=== PATIENT | female | born 1990 | race Caucasian/White ===

== ENCOUNTER 2021-05-01 17:21 | Inpatient (IN) | payer OTHER, SELFPAY ==
[2021-05-01 18:00] VITALS: BP 121/72; PULSE 68; RESP 18; TEMP 36.7; O2SAT 98
[2021-05-01 19:23] VITALS: BMI 36.1
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
[2021-05-01] MEDS: OLANZapine 7.5 MG TABLET 15 MG PO (20:01)
[2021-05-01] MEDS: LORazepam 1 MG TABLET PO (20:02)
[2021-05-02] MEDS: Levothyroxine Sodium 75 MCG TABLET PO (06:45)
[2021-05-02 07:00] VITALS: BMI 36.1
[2021-05-02 09:04] VITALS: BP 112/75; PULSE 80; RESP 16; TEMP 36.2; O2SAT 100
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
[2021-05-02 14:16] LABS: Estimated Average Glucose 85 mg/dL; Hemoglobin A1c % 4.6 %
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
[2021-05-02 14:33] LABS: Cholesterol 171 mg/dL; HDL Cholesterol 44 mg/dL; LDL Cholesterol Calculated 91 mg/dl; Triglycerides 182 mg/dL
[2021-05-02 14:38] LABS: Valproate 6.4 mcg/mL (50.0-100.0)
[2021-05-02 14:53] LABS: Thyroid Stimulating Hormone 14.46 uIU/mL (0.32-4.0)
[2021-05-02 15:05] LABS: Folate 15.5 ng/mL (> or = 4.0); Vitamin B12 584 pg/mL (200-900)
[2021-05-02] MEDS: OLANZapine 5 MG TABLET PO ×2 (15:31→17:00)
[2021-05-02] MEDS: LORazepam 1 MG TABLET PO ×2 (15:31→17:00)
[2021-05-02] MEDS: Divalproex Sodium ER 250 MG TAB.ER.24H 750 MG PO (15:31)
[2021-05-02] MEDS: Albuterol Sulfate 90 MCG 8 GM INHALER 2 PUFF INHALE (15:33)
--- NOTE | 2021-05-03 | ECG_ITS ---
Test Reason : CP Blood Pressure : / mmHG Vent. Rate : 078 BPM Atrial Rate : 078 BPM P-R Int : 188 ms QRS Dur : 072 ms QT Int : 390 ms P-R-T Axes : 089 059 044 degrees QTc Int : 444 ms Normal sinus rhythm Nonspecific T wave abnormality Abnormal ECG No previous ECGs available Referred By: Maxwell Spencer Electronically Signed By:SCOTTIE SCOTT
[2021-05-03 06:00] VITALS: BP 117/65; PULSE 88; RESP 18; TEMP 35.6; O2SAT 97
[2021-05-03] MEDS: OLANZapine 5 MG TABLET PO ×2 (09:17→15:39)
[2021-05-03] MEDS: Levothyroxine Sodium 88 MCG TABLET PO (09:17)
[2021-05-03] MEDS: Divalproex Sodium ER 250 MG TAB.ER.24H 750 MG PO ×2 (09:17→20:22)
--- NOTE | 2021-05-03 12:53 | HO.PSYCHPN ---
Subjective Subjective Date of Service: 05/03/21 Reason For Visit: Psychosis Interim History: pt found lying in bed, awake. states she is ready to go home and has no complaints or requests. 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 not attending any groups. asked for PRNs yesterday afternoon and then a couple of hours later had an episode of yelling in relation to paranoid delusions. she received more PRNs after that and then calmed and slept through the night. TSH noted to be very elevated - known hypothyroidism on synthroid. Mental Status Exam Mental Status Exam Narrative: appropriately dressed and groomed. moderately cooperative. no PMA/PMR. speech WNL, thoughts linear and logical. affect constricted. no SI/HI/AVH expressed. Diagnostics Vital Signs (24Hr): Vital Signs - 24 hr 05/03/21 06:00 Temperature 96.0 F L Pulse Rate 88 Respiratory Rate 18 Blood Pressure 117/65 Pulse Oximetry 97 Body Mass Index 36.1 Labs Labs: Laboratory Results - last 48 hr 05/02/21 05/02/21 05/02/21 13:45 13:45 13:45 Estimat Average Glucose 85 Hemoglobin A1c % 4.6 Triglycerides 182 Cholesterol 171 LDL Cholesterol, Calc 91 HDL Cholesterol 44 Vitamin B12 584 Folate 15.5 TSH 14.46 H Valproic Acid 6.4 L Medications Medications Current Medications Generic Name Dose Route Start Last Admin Trade Name Freq PRN Reason Stop Dose Admin Acetaminophen 650 mg 05/01/21 17:48 Acetaminophen 325 Mg Tablet PO Q6H PRN Headache/Pain Mild Scale (1-3) Al Hydroxide/Mg Hydroxide 30 ml 05/01/21 17:48 Magnesium Hydrox/Alum Hydrox 30 Ml Oral.Susp PO Q6H PRN Heartburn/Nausea Albuterol Sulfate 2 puff 05/01/21 20:14 05/02/21 15:33 Albuterol Sulfate 90 Mcg 8 Gm Inhaler INHALE 2 puff RQ4H PRN Administration Shortness of Breath Divalproex Sodium 750 mg 05/02/21 14:30 05/03/21 09:17 Divalproex Sodium Er 250 Mg Tab.Er.24h PO 750 mg BID YOSELIN Administration Famotidine 20 mg 05/01/21 20:15 Famotidine 20 Mg Tablet PO BID PRN GERD Sx Hydroxyzine HCl 25 mg 05/01/21 17:48 Hydroxyzine Hcl 25 Mg Tablet PO BEDTIME PRN Anxiety Levothyroxine Sodium 88 mcg 05/03/21 06:00 05/03/21 09:17 Levothyroxine Sodium 88 Mcg Tablet PO 88 mcg DAILY@0600 YOSELIN Administration Lorazepam 1 mg 05/01/21 18:11 05/02/21 15:31 Lorazepam 1 Mg Tablet PO 1 mg Q6H PRN Administration psychosis, anxiety,agitation Lorazepam 1 mg 05/02/21 21:00 05/03/21 06:13 Lorazepam 1 Mg Tablet PO Not Given BEDTIME YOSELIN Magnesium Hydroxide 30 ml 05/01/21 17:48 Milk Of Magnesia 30 Ml Oral.Susp PO DAILY PRN Constipation Nicotine Polacrilex 2 mg 05/01/21 20:16 Nicotine Polacrilex 2 Mg Gum BUCCAL Q2H PRN Nicotine Cravings Olanzapine 15 mg 05/01/21 21:00 05/03/21 06:13 Olanzapine 7.5 Mg Tablet PO Not Given BEDTIME YOSELIN Olanzapine 5 mg 05/01/21 18:10 05/02/21 15:31 Olanzapine 5 Mg Tablet PO 5 mg BID PRN Administration psychosis Olanzapine 5 mg 05/03/21 09:00 05/03/21 09:17 Olanzapine 5 Mg Tablet PO 5 mg DAILY YOSELIN Administration Prazosin HCl 2 mg 05/02/21 21:00 05/03/21 06:13 Prazosin Hcl 1 Mg Capsule PO Not Given BEDTIME YOSELIN Protocol Trazodone HCl 50 mg 05/01/21 17:48 Trazodone Hcl 50 Mg Tablet PO BEDTIME PRN Insomnia Trazodone HCl 50 mg 05/02/21 21:00 05/03/21 06:13 Trazodone Hcl 50 Mg Tablet PO Not Given BEDTIME YOSELIN Allergies Allergies Allergy/AdvReac Type Severity Reaction Status Date / Time No Known Allergies Allergy Unverified 05/24/20 16:13 Assessment & Plan Assessment & Plan (1) Psychotic disorder: Status: Acute Code(s): F29 - Unspecified psychosis not due to a substance or known physiological condition Assessment and Plan: restarted home regimen. Assessment and Plan: 31/F with asthma, hypothyroidism and Psychosis here with decompensated Psychosis with disorganized thoughts. Plan: Medical issues of hypothyroidism and Asthma are stable. Continue Psych care for Psychosis. Greater than 50% of the session was spent on counseling and/or coordination of care Reason for contiued inpatient stay Substantial Risk for: inability to function
[2021-05-03] MEDS: LORazepam 1 MG TABLET PO ×2 (15:39→20:23)
[2021-05-03] MEDS: Acetaminophen 325 MG TABLET 650 MG PO (15:42)
[2021-05-03] MEDS: Albuterol Sulfate 90 MCG 8 GM INHALER 2 PUFF INHALE (15:42)
[2021-05-03 18:00] VITALS: BP 127/69; PULSE 82; RESP 16; TEMP 36.4; O2SAT 99
[2021-05-03 20:22] VITALS: BP 127/69; PULSE 82
[2021-05-03] MEDS: Prazosin HCL 1 MG CAPSULE 2 MG PO (20:22)
[2021-05-03] MEDS: OLANZapine 7.5 MG TABLET 15 MG PO (20:22)
[2021-05-03] MEDS: traZODone HCL 50 MG TABLET PO (20:23)
[2021-05-04] MEDS: Acetaminophen 325 MG TABLET 650 MG PO ×2 (02:28→10:20)
[2021-05-04] MEDS: traZODone HCL 50 MG TABLET PO ×2 (02:28→19:59)
[2021-05-04] MEDS: Albuterol Sulfate 90 MCG 8 GM INHALER 2 PUFF INHALE ×3 (02:30→19:08)
[2021-05-04] MEDS: Levothyroxine Sodium 88 MCG TABLET PO (07:09)
[2021-05-04] MEDS: Divalproex Sodium ER 250 MG TAB.ER.24H 750 MG PO ×2 (08:45→19:59)
[2021-05-04] MEDS: OLANZapine 5 MG TABLET PO ×2 (08:46→19:10)
[2021-05-04 10:27] VITALS: BP 102/58; PULSE 85; TEMP 36.2
--- NOTE | 2021-05-04 16:03 | HO.PSYCHPN ---
Subjective Subjective Date of Service: 05/04/21 Reason For Visit: Psychosis Subjective Notes: Conditional Voluntary and 3 Day Interim History: Patient withdrawn depressed hopeless helpless minimal engagement Medication Compliance: Intermittent Attending Groups: No Mental Status Exam Mental Status Exam Narrative: Patient lying in bed minimal engagement. Psychomotor retardation rambling paranoid concerns disorganized thought Patient Appearance: Fatigued Patient Orientation: Person and Place Level of Consciousness: Awake Mood Description: Suspicious, Blunted and Apprehensive Affect Description: Suspicious and Apprehensive Delusions: Paranoid Ideation Thought Content: positive for [place], positive for Perseveration, negative for Suicidal Ideation or positive for Homicidal Ideation Judgement: Poor Diagnostics Vital Signs (24Hr): Vital Signs - 24 hr 05/03/21 18:00 05/03/21 20:22 05/04/21 10:27 Temperature 97.5 F 97.2 F Pulse Rate 82 82 85 Respiratory Rate 16 Blood Pressure 127/69 127/69 102/58 L Pulse Oximetry 99 Body Mass Index 36.1 Medications Medications Current Medications Generic Name Dose Route Start Last Admin Trade Name Freq PRN Reason Stop Dose Admin Acetaminophen 650 mg 05/01/21 17:48 05/04/21 10:20 Acetaminophen 325 Mg Tablet PO 650 mg Q6H PRN Administration Headache/Pain Mild Scale (1-3) Al Hydroxide/Mg Hydroxide 30 ml 05/01/21 17:48 Magnesium Hydrox/Alum Hydrox 30 Ml Oral.Susp PO Q6H PRN Heartburn/Nausea Albuterol Sulfate 2 puff 05/01/21 20:14 05/04/21 10:20 Albuterol Sulfate 90 Mcg 8 Gm Inhaler INHALE 2 puff RQ4H PRN Administration Shortness of Breath Divalproex Sodium 750 mg 05/02/21 14:30 05/04/21 08:45 Divalproex Sodium Er 250 Mg Tab.Er.24h PO 750 mg BID YOSELIN Administration Famotidine 20 mg 05/01/21 20:15 Famotidine 20 Mg Tablet PO BID PRN GERD Sx Hydroxyzine HCl 25 mg 05/01/21 17:48 Hydroxyzine Hcl 25 Mg Tablet PO BEDTIME PRN Anxiety Levothyroxine Sodium 88 mcg 05/03/21 06:00 05/04/21 07:09 Levothyroxine Sodium 88 Mcg Tablet PO 88 mcg DAILY@0600 YOSELIN Administration Lorazepam 1 mg 05/01/21 18:11 05/02/21 15:31 Lorazepam 1 Mg Tablet PO 1 mg Q6H PRN Administration psychosis, anxiety,agitation Lorazepam 1 mg 05/02/21 21:00 05/03/21 20:23 Lorazepam 1 Mg Tablet PO 1 mg BEDTIME YOSELIN Administration Magnesium Hydroxide 30 ml 05/01/21 17:48 Milk Of Magnesia 30 Ml Oral.Susp PO DAILY PRN Constipation Nicotine Polacrilex 2 mg 05/01/21 20:16 Nicotine Polacrilex 2 Mg Gum BUCCAL Q2H PRN Nicotine Cravings Olanzapine 15 mg 05/01/21 21:00 05/03/21 20:22 Olanzapine 7.5 Mg Tablet PO 15 mg BEDTIME YOSELIN Administration Olanzapine 5 mg 05/01/21 18:10 05/02/21 15:31 Olanzapine 5 Mg Tablet PO 5 mg BID PRN Administration psychosis Olanzapine 5 mg 05/03/21 09:00 05/04/21 08:46 Olanzapine 5 Mg Tablet PO 5 mg DAILY YOSELIN Administration Prazosin HCl 2 mg 05/02/21 21:00 05/03/21 20:22 Prazosin Hcl 1 Mg Capsule PO 2 mg BEDTIME YOSELIN Administration Protocol Trazodone HCl 50 mg 05/01/21 17:48 05/04/21 02:28 Trazodone Hcl 50 Mg Tablet PO 50 mg BEDTIME PRN Administration Insomnia Trazodone HCl 50 mg 05/02/21 21:00 05/03/21 20:23 Trazodone Hcl 50 Mg Tablet PO 50 mg BEDTIME YOSELIN Administration Allergies Allergies Allergy/AdvReac Type Severity Reaction Status Date / Time No Known Allergies Allergy Unverified 05/24/20 16:13 Assessment & Plan Assessment & Plan (1) Psychotic disorder: Status: Acute Code(s): F29 - Unspecified psychosis not due to a substance or known physiological condition Assessment and Plan: restarted home regimen. Continue Assessment and Plan: with asthma, hypothyroidism and Psychosis here with decompensated Psychosis with disorganized thoughts. Plan: Medical issues of hypothyroidism and Asthma are stable. Continue Psych care for Psychosis. Greater than 50% of the session was spent on counseling and/or coordination of care Reason for contiued inpatient stay Substantial Risk for: inability to function and rapid decompensation
[2021-05-04 18:26] LABS: Glucose Urine UA NEG (NEG); Leukocyte Esterase Urine 1+ (NEG); Nitrite Urine NEG (NEG); Urine Blood TRACE (NEG); Urine Ketones 5 MG/DL (NEG); Urine Protein NEG (NEG-TRACE)
[2021-05-04 18:39] LABS: Appearance Urine HAZY; Color Urine YELLOW
[2021-05-04 18:40] LABS: Bacteria Urine 1+ /LPF; RBC Urine 0-2 /HPF (0); Squamous Epithelial Cell Urine 1+ /LPF; WBC Urine 0-2 /HPF (0-4)
[2021-05-04] MEDS: LORazepam 1 MG TABLET PO ×2 (19:10→19:59)
[2021-05-04 19:58] VITALS: BP 115/72; PULSE 88
[2021-05-04] MEDS: Prazosin HCL 1 MG CAPSULE 2 MG PO (19:58)
[2021-05-04] MEDS: OLANZapine 7.5 MG TABLET 15 MG PO (19:59)
[2021-05-04 21:22] VITALS: BP 124/78; PULSE 82; RESP 18; TEMP 36.3; O2SAT 100
--- NOTE | 2021-05-05 00:11 | PC.NURSE ---
ua results reviewed with hospitalist
--- NOTE | 2021-05-05 02:05 | PC.NURSE ---
NOT GIVEN ANTIBIOTIC PT IS DIFFICULT TO AROUSE SHE HAD REQUESTED PRN MEDICATION WHEN FEELING OVERWHELMED THEN ACCEPTED HS MEDICATIONS. SLEEPING SOUNDLY.
[2021-05-05] MEDS: Levothyroxine Sodium 88 MCG TABLET PO (05:22)
[2021-05-05] MEDS: OLANZapine 5 MG TABLET PO ×2 (08:54→13:38)
[2021-05-05] MEDS: Divalproex Sodium ER 250 MG TAB.ER.24H 750 MG PO ×2 (08:54→20:32)
[2021-05-05] MEDS: LORazepam 1 MG TABLET PO ×2 (13:38→20:32)
[2021-05-05 20:32] VITALS: BP 109/59; PULSE 78
[2021-05-05] MEDS: Prazosin HCL 1 MG CAPSULE 2 MG PO (20:32)
[2021-05-05] MEDS: traZODone HCL 50 MG TABLET PO (20:32)
[2021-05-05] MEDS: OLANZapine 7.5 MG TABLET 15 MG PO (20:32)
[2021-05-05 20:37] VITALS: TEMP 36.7
--- NOTE | 2021-05-05 23:27 | P.PNPSI_ITS ---
Subjective Subjective Date of Service: 05/05/21 Reason For Visit: Psychosis Subjective Notes: Conditional Voluntary and 3 Day Interim History: pt withdrawn in bed isolative bizarre paranoid preoccupations Medication Compliance: Intermittent Mental Status Exam Mental Status Exam Patient Appearance: Unkempt Patient Orientation: Person and Place Level of Consciousness: Lethargic Mood Description: Anxious, Labile and Apprehensive Affect Description: Withdrawn Ability to Follow Directions: Poor Hallucinations: Auditory Delusions: Paranoid Ideation Thought Process: Rumination and Slowed Thinking Thought Content: negative for Suicidal Ideation Depressive Symptoms: Increased Anxiety, Loss of Int. in Activity, Loss of Energy and Difficulty Concentrating Judgement: Poor Diagnostics Vital Signs (24Hr): Vital Signs - 24 hr 05/05/21 20:32 05/05/21 20:37 Temperature 98.1 F Pulse Rate 78 Blood Pressure 109/59 L Body Mass Index 36.1 Labs Labs: Laboratory Results - last 48 hr 05/04/21 18:08 Urine Color YELLOW Urine Appearance HAZY Urine pH 6.0 Ur Specific [place] 1.020 Urine Protein NEG Urine Glucose (UA) NEG Urine Ketones 5 Urine Blood TRACE Urine Nitrite NEG Ur Leukocyte Esterase 1+ H Urine RBC 0-2 Urine WBC 0-2 Ur Squamous Epith Cells 1+ Urine Bacteria 1+ Medications Medications Current Medications Generic Name Dose Route Start Last Admin Trade Name Freq PRN Reason Stop Dose Admin Acetaminophen 650 mg 05/01/21 17:48 05/04/21 10:20 Acetaminophen 325 Mg Tablet PO 650 mg Q6H PRN Administration Headache/Pain Mild Scale (1-3) Al Hydroxide/Mg Hydroxide 30 ml 05/01/21 17:48 Magnesium Hydrox/Alum Hydrox 30 Ml Oral.Susp PO Q6H PRN Heartburn/Nausea Albuterol Sulfate 2 puff 05/01/21 20:14 05/04/21 19:08 Albuterol Sulfate 90 Mcg 8 Gm Inhaler INHALE 2 puff RQ4H PRN Administration Shortness of Breath Divalproex Sodium 750 mg 05/02/21 14:30 05/05/21 20:32 Divalproex Sodium Er 250 Mg Tab.Er.24h PO 750 mg BID YOSELIN Administration Famotidine 20 mg 05/01/21 20:15 Famotidine 20 Mg Tablet PO BID PRN GERD Sx Hydroxyzine HCl 25 mg 05/01/21 17:48 Hydroxyzine Hcl 25 Mg Tablet PO BEDTIME PRN Anxiety Levothyroxine Sodium 88 mcg 05/03/21 06:00 05/05/21 05:22 Levothyroxine Sodium 88 Mcg Tablet PO 88 mcg DAILY@0600 YOSELIN Administration Lorazepam 1 mg 05/01/21 18:11 05/05/21 13:38 Lorazepam 1 Mg Tablet PO 1 mg Q6H PRN Administration psychosis, anxiety,agitation Lorazepam 1 mg 05/02/21 21:00 05/05/21 20:32 Lorazepam 1 Mg Tablet PO 1 mg BEDTIME YOSELIN Administration Magnesium Hydroxide 30 ml 05/01/21 17:48 Milk Of Magnesia 30 Ml Oral.Susp PO DAILY PRN Constipation Nicotine Polacrilex 2 mg 05/01/21 20:16 Nicotine Polacrilex 2 Mg Gum BUCCAL Q2H PRN Nicotine Cravings Olanzapine 15 mg 05/01/21 21:00 05/05/21 20:32 Olanzapine 7.5 Mg Tablet PO 15 mg BEDTIME YOSELIN Administration Olanzapine 5 mg 05/01/21 18:10 05/05/21 13:38 Olanzapine 5 Mg Tablet PO 5 mg BID PRN Administration psychosis Olanzapine 5 mg 05/03/21 09:00 05/05/21 08:54 Olanzapine 5 Mg Tablet PO 5 mg DAILY YOSELIN Administration Prazosin HCl 2 mg 05/02/21 21:00 05/05/21 20:32 Prazosin Hcl 1 Mg Capsule PO 2 mg BEDTIME YOSELIN Administration Protocol Trazodone HCl 50 mg 05/01/21 17:48 05/04/21 02:28 Trazodone Hcl 50 Mg Tablet PO 50 mg BEDTIME PRN Administration Insomnia Trazodone HCl 50 mg 05/02/21 21:00 05/05/21 20:32 Trazodone Hcl 50 Mg Tablet PO 50 mg BEDTIME YOSELIN Administration Trimethoprim/Sulfamethoxazole 1 tab 05/05/21 00:15 05/05/21 13:38 Sulfamethox/Trimeth 800/160 1 Tab Tablet PO 1 tab Q12H YOSELIN Administration Allergies Allergies Allergy/AdvReac Type Severity Reaction Status Date / Time No Known Allergies Allergy Unverified 05/24/20 16:13 Assessment & Plan Assessment & Plan (1) Psychotic disorder: Status: Acute Code(s): F29 - Unspecified psychosis not due to a substance or known physiological condition Assessment and Plan: 31/F with asthma, hypothyroidism and Psychosis here with decompensated Psychosis with disorganized thoughts. Plan: ck ua encourage tx antipsychotic Greater than 50% of the session was spent on counseling and/or coordination of care Reason for contiued inpatient stay Substantial Risk for: inability to function and rapid decompensation
[2021-05-06] MEDS: Divalproex Sodium ER 250 MG TAB.ER.24H 750 MG PO ×2 (08:08→21:03)
[2021-05-06] MEDS: Levothyroxine Sodium 88 MCG TABLET PO (08:08)
[2021-05-06] MEDS: OLANZapine 5 MG TABLET PO (08:08)
[2021-05-06] MEDS: Albuterol Sulfate 90 MCG 8 GM INHALER 2 PUFF INHALE (08:09)
[2021-05-06 08:19] VITALS: BP 114/55; PULSE 106; TEMP 36.4; O2SAT 97
--- NOTE | 2021-05-06 14:44 | HO.PSYCHPN ---
Subjective Subjective Date of Service: 05/06/21 Reason For Visit: Psychosis Interim History: pt reports she is doing well. states she has been sleeping a lot due to the medication, but she is feeling up and better now. recites a list of plans for after discharge tomorrow. anticipating her spring encaser will be coming to pick her up tomorrow. per staff, 3-day matures tomorrow. eating, napping. anxious, depressed, labile. brief verbal escalation with staff over the weekend. takng medications but c/o seeing demons. sleeping well. Mental Status Exam Mental Status Exam Narrative: appropriately dressed and groomed. cooperative. no PMA/PMR. speech incr in rate, amount. speech decr in latency. thoughts disorganized, tangential. affect constricted. mood I fell happy, strong, great, recoverd. no SI/HI/AVH. Diagnostics Vital Signs (24Hr): Vital Signs - 24 hr 05/05/21 20:32 05/05/21 20:37 05/06/21 08:19 Temperature 98.1 F 97.6 F Pulse Rate 78 106 H Blood Pressure 109/59 L 114/55 L Pulse Oximetry 97 Body Mass Index 36.1 Labs Labs: Laboratory Results - last 48 hr 05/04/21 18:08 Urine Color YELLOW Urine Appearance HAZY Urine pH 6.0 Ur Specific [place] 1.020 Urine Protein NEG Urine Glucose (UA) NEG Urine Ketones 5 Urine Blood TRACE Urine Nitrite NEG Ur Leukocyte Esterase 1+ H Urine RBC 0-2 Urine WBC 0-2 Ur Squamous Epith Cells 1+ Urine Bacteria 1+ Medications Medications Current Medications Generic Name Dose Route Start Last Admin Trade Name Luisa PRN Reason Stop Dose Admin Acetaminophen 650 mg 05/01/21 17:48 05/04/21 10:20 Acetaminophen 325 Mg Tablet PO 650 mg Q6H PRN Administration Headache/Pain Mild Scale (1-3) Al Hydroxide/Mg Hydroxide 30 ml 05/01/21 17:48 Magnesium Hydrox/Alum Hydrox 30 Ml Oral.Susp PO Q6H PRN Heartburn/Nausea Albuterol Sulfate 2 puff 05/01/21 20:14 05/06/21 08:09 Albuterol Sulfate 90 Mcg 8 Gm Inhaler INHALE 2 puff RQ4H PRN Administration Shortness of Breath Divalproex Sodium 750 mg 05/02/21 14:30 05/06/21 08:08 Divalproex Sodium Er 250 Mg Tab.Er.24h PO 750 mg BID YOSELIN Administration Famotidine 20 mg 05/01/21 20:15 Famotidine 20 Mg Tablet PO BID PRN GERD Sx Hydroxyzine HCl 25 mg 05/01/21 17:48 Hydroxyzine Hcl 25 Mg Tablet PO BEDTIME PRN Anxiety Levothyroxine Sodium 88 mcg 05/03/21 06:00 05/06/21 08:08 Levothyroxine Sodium 88 Mcg Tablet PO 88 mcg DAILY@0600 YOSELIN Administration Lorazepam 1 mg 05/01/21 18:11 05/05/21 13:38 Lorazepam 1 Mg Tablet PO 1 mg Q6H PRN Administration psychosis, anxiety,agitation Lorazepam 1 mg 05/02/21 21:00 05/05/21 20:32 Lorazepam 1 Mg Tablet PO 1 mg BEDTIME YOSELIN Administration Magnesium Hydroxide 30 ml 05/01/21 17:48 Milk Of Magnesia 30 Ml Oral.Susp PO DAILY PRN Constipation Nicotine Polacrilex 2 mg 05/01/21 20:16 Nicotine Polacrilex 2 Mg Gum BUCCAL Q2H PRN Nicotine Cravings Olanzapine 15 mg 05/01/21 21:00 05/05/21 20:32 Olanzapine 7.5 Mg Tablet PO 15 mg BEDTIME YOSELIN Administration Olanzapine 5 mg 05/01/21 18:10 05/05/21 13:38 Olanzapine 5 Mg Tablet PO 5 mg BID PRN Administration psychosis Olanzapine 5 mg 05/03/21 09:00 05/06/21 08:08 Olanzapine 5 Mg Tablet PO 5 mg DAILY YOSELIN Administration Prazosin HCl 2 mg 05/02/21 21:00 05/05/21 20:32 Prazosin Hcl 1 Mg Capsule PO 2 mg BEDTIME YOSELIN Administration Protocol Trazodone HCl 50 mg 05/01/21 17:48 05/04/21 02:28 Trazodone Hcl 50 Mg Tablet PO 50 mg BEDTIME PRN Administration Insomnia Trazodone HCl 50 mg 05/02/21 21:00 05/05/21 20:32 Trazodone Hcl 50 Mg Tablet PO 50 mg BEDTIME YOSELIN Administration Trimethoprim/Sulfamethoxazole 1 tab 05/06/21 08:00 05/06/21 08:08 Sulfamethox/Trimeth 800/160 1 Tab Tablet PO 1 tab Q12H YOSELIN Administration Allergies Allergies Allergy/AdvReac Type Severity Reaction Status Date / Time No Known Allergies Allergy Unverified 05/24/20 16:13 Assessment & Plan Assessment & Plan (1) Psychotic disorder: Status: Acute Code(s): F29 - Unspecified psychosis not due to a substance or known physiological condition Assessment and Plan: restarted home regimen. Assessment and Plan: with asthma, hypothyroidism and Psychosis here with decompensated Psychosis with disorganized thoughts. Plan: Medical issues of hypothyroidism and Asthma are stable. Continue Psych care for Psychosis. Greater than 50% of the session was spent on counseling and/or coordination of care Reason for contiued inpatient stay Substantial Risk for: rapid decompensation
[2021-05-06 21:03] VITALS: BP 97/56; PULSE 87
[2021-05-06] MEDS: traZODone HCL 50 MG TABLET PO (21:03)
[2021-05-06] MEDS: LORazepam 1 MG TABLET PO (21:03)
[2021-05-06] MEDS: OLANZapine 7.5 MG TABLET 15 MG PO (21:03)
[2021-05-06] MEDS: Prazosin HCL 1 MG CAPSULE 2 MG PO (21:03)
[2021-05-06 21:09] VITALS: TEMP 36.4; O2SAT 98
--- NOTE | 2021-05-06 21:53 | P.EN_ITS ---
Event Note Date of Service: 05/07/21 Event Note: Patient complaining of s/s of yeast infection, recently started ba ctrim for UTI. Will administer fluconazole 150 mg single dose. Reviewed risks/ benefits. Reviewed recent labs including U/A and urine culture.
[2021-05-06] MEDS: Fluconazole 150 MG TABLET PO (22:44)
[2021-05-07 10:54] VITALS: BP 122/60; PULSE 114; RESP 16; TEMP 36.7; O2SAT 97
[2021-05-07] MEDS: Levothyroxine Sodium 88 MCG TABLET PO (10:56)
[2021-05-07] MEDS: Divalproex Sodium ER 250 MG TAB.ER.24H 750 MG PO (10:57)
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
--- NOTE | 2021-05-07 12:51 | PC.NURSE ---
PT aware and ready for discharge. Pt mood is bright, pt is future focused. PT denies SI/HI. PT aware of follow up appointments. Discharge instructions discussed, all questions answered. Belongings returned. Pt ambulated off unit with steady gait with her [facility] worker.
== END 2021-05-07 12:52 | disposition home or self-care (01) | DRG 751 ==
PROVIDERS: Clinical Nurse Specialist Psychiatric/Mental Health, Adult; Psychiatry & Neurology Psychiatry; Admitting Provider Psychiatry & Neurology Psychiatry; Visit Provider Psychiatry & Neurology Psychiatry
DX: F29 Unspecified psychosis not due to a substance or known physiological condition (principal); E03.9 Hypothyroidism, unspecified; J45.909 Unspecified asthma, uncomplicated; Z87.891 Personal history of nicotine dependence; Z79.890 Hormone replacement therapy; Z79.899 Other long term (current) drug therapy
CPT/HCPCS: 36415; 80061; 80164; 81001; 82607; 82746; 83036; 84443; 87086; 93005

== ENCOUNTER 2024-04-12 20:50 | Inpatient (IN) | payer OTHER, SELFPAY ==
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
[2024-04-12 21:40] VITALS: BMI 26.3
[2024-04-12 21:43] VITALS: BP 95/60; PULSE 87; RESP 18; TEMP 36.7; O2SAT 98
[2024-04-12] MEDS: traZODone HCL 50 MG TABLET PO (21:47)
[2024-04-12] MEDS: hydrOXYzine HCL 25 MG TABLET PO (21:47)
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
[2024-04-13] MEDS: hydrOXYzine HCL 25 MG TABLET PO ×2 (04:31→15:57)
[2024-04-13 08:15] VITALS: BP 110/49; PULSE 74; RESP 16; TEMP 36.9; O2SAT 97
[2024-04-13] MEDS: Divalproex Sodium ER 250 MG TAB.ER.24H 750 MG PO ×2 (09:02→20:21)
[2024-04-13 10:05] LABS: Estimated Average Glucose 94 mg/dL; Hemoglobin A1c % 4.9 % (<6.0)
--- NOTE | 2024-04-13 10:45 | HO.PM.IMCN ---
History of Present Illness Data of Consult Service Date: 04/13/24 Primary Care Provider: MD AYM Mathews Reason for consult: Medical management This is a 34-year-old female with history of hypothyroidism, mild intermittent asthma, mood disorder who is admitted to inpatient psychiatry for decompensated psychiatric illness. She has no complaints at the time of my evaluation. No chest pain, shortness of breath or any other complaints. Review of Systems Cardiovascular: Cardiovascular: Reports no additional cardiovascular complaints Respiratory: Respiratory: Reports no additional respiratory complaints Gastrointestinal: Gastrointestinal: Reports no additional gastrointestinal complaints Genitourinary: Genitourinary: Reports no additional female genitourinary complaints [facility] Medical History Hypothyroidism Asthma Pertinent family history: No family history of early CAD Social History Household Members: None Household Members Other:: lives alone Housing: Apartment Housing Other:: Moving on 05/10 Do you presently have visiting nurse or other home services: No Patient Tobacco Use Status: Former Tobacco user Tobacco use type: Cigarette Cigarette Packs Per Day: 0.25 Cigarettes Per Day: 5.0 Years Smoked: 12 e-Cigarette/Vaping Use: Never Used Second Hand Smoke Exposure: No Use of substances other than those prescribed or required for medical reasons: No Last Used Substance: Just Prior to Admission Last Used Substance Other:: DENIES BUT NOTED POSITIVE FOR COCAINE AND FENTANYL Have you been hit, kicked, punched, or otherwise hurt by someone within the past year? If so, by whom?: No Do you feel safe in your current relationship?: No Is there a partner from a previous relationship who is making you feel unsafe now?: No Are you made to feel afraid or neglected: No Advance Directives: No Advance Directives Information Provided: No Recently lost weight without trying: No Nutrition Risks: No Nutritional Risk Patient : No service: No Sexual orientation: Straight/Heterosexual Meds Allergies Allergy/AdvReac Type Severity Reaction Status Date / Time risperidone Allergy Unknown Verified 04/12/24 22:01 Active Medications: Current Medications Acetaminophen (Acetaminophen 325 Mg Tablet) 650 mg PO Q6H PRN PRN Reason: Headache/Pain Mild Scale (1-3) Al Hydroxide/Mg Hydroxide (Magnesium Hydrox/Alum Hydrox 30 Ml Oral.Susp) 30 ml PO Q6H PRN PRN Reason: Heartburn/Nausea Divalproex Sodium (Divalproex Sodium Er 250 Mg Tab.Er.24h) 750 mg PO BID YOSELIN Last Admin: 04/13/24 09:02 Dose: 750 mg Hydroxyzine HCl (Hydroxyzine Hcl 25 Mg Tablet) 25 mg PO Q6H PRN PRN Reason: Anxiety Last Admin: 04/13/24 04:31 Dose: 25 mg Magnesium Hydroxide (Milk Of Magnesia 30 Ml Oral.Susp) 30 ml PO DAILY PRN PRN Reason: Constipation Melatonin (Melatonin 3 Mg Tablet) 3 mg PO BEDTIME PRN PRN Reason: Insomnia Nicotine (Nicotine 21 Mg Patch.Td24) 21 mg TRANSDERMA DAILY PRN PRN Reason: nicotine cravings Nicotine Polacrilex (Nicotine Polacrilex 2 Mg Gum) 4 mg BUCCAL Q2H PRN PRN Reason: Nicotine Cravings Olanzapine (Olanzapine 10 Mg Tablet) 20 mg PO BEDTIME YOSELIN Prazosin HCl (Prazosin Hcl 1 Mg Capsule) 2 mg PO BEDTIME YOSELIN; Protocol Trazodone HCl (Trazodone Hcl 50 Mg Tablet) 50 mg PO BEDTIME MRX1 PRN PRN Reason: Insomnia Last Admin: 04/12/24 21:47 Dose: 50 mg Home Medications ?Medication ?Instructions ?Recorded ?Confirmed ?Last Taken ?Type hydroxyzine pamoate 50 mg capsule 50 mg PO Q6H PRN Anxiety 04/13/24 04/13/24 Unknown History melatonin 3 mg tablet 3 mg PO BEDTIME PRN Insomnia 04/13/24 04/13/24 Unknown History olanzapine 7.5 mg tablet 20 mg PO BEDTIME 04/13/24 04/13/24 Unknown History Physical Exam Vital Signs and Narrative: Vital Signs: Last Vital Signs Temp 98.4 F 04/13/24 08:15 Pulse 74 04/13/24 08:15 Resp 16 04/13/24 08:15 BP 110/49 L 04/13/24 08:15 Pulse Ox 97 04/13/24 08:15 O2 Del Method Room Air 04/13/24 08:15 BMI result Body Mass Index 26.3 Middle-aged female lying in bed in no distress Neck supple, no JVD Regular rate and rhythm, S1-S2 heard Regular breath sounds bilaterally, no wheezing or crackles appreciated Abdomen soft nontender, no guarding, no rigidity Patient is awake, alert and oriented to self, place, time and person ; no focal motor deficit Psych: Normal mood No pedal edema Results Labs Labs: Laboratory Results - last 24 hr 04/13/24 09:31 Estimat Average Glucose 94 Hemoglobin A1c % 4.9 Assessment and Plan (1) Psychotic disorder: Status: Acute Plan This is a 34-year-old female with history of hypothyroidism, mild intermittent asthma, mood disorder who is admitted to inpatient psychiatry for decompensated psychiatric illness. #. Hypothyroidism: Patient does not seem to be on Synthroid as per home med reconciliation. Labs with subclinical hypothyroidism. Will initiate Synthroid 1.6mcg/kg as TSH is greater than 10. Recheck TSH in 4-6 weeks. Outpatient follow up #. Mild intermittent asthma: No exacerbation on evaluation. Will sign off. Thank you for the consult. Please reconsult if we can help
[2024-04-13 10:52] LABS: Cholesterol 128 mg/dL (<200); HDL Cholesterol 42 mg/dL (>40); LDL Cholesterol Calculated 68 mg/dL (<100); Triglycerides 91 mg/dL (<150)
[2024-04-13 10:53] LABS: Free T4 (Free Thyroxine) 0.72 ng/dL (0.71-1.85); Thyroid Stimulating Hormone 11.95 uIU/mL (0.32-4.0)
[2024-04-13 11:10] LABS: Vitamin B12 515 pg/mL (200-900)
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
[2024-04-13 16:57] LABS: Appearance Urine Clear; Color Urine Yellow; Glucose Urine UA Negative (Negative); Leukocyte Esterase Urine Moderate (2+) (Negative); Nitrite Urine Negative (Negative); UMIC TRIGGER UACC YES; Urine Blood Negative (Negative); Urine Ketones Negative (Negative); Urine Protein Negative (Neg-Trace)
[2024-04-13 16:58] LABS: Ammonia 20 umol/L (13-55)
[2024-04-13 16:59] LABS: Bacteria Urine None Seen (None Seen); Hyaline Casts Urine 0-2 /LPF (0-2); RBC Urine 0-2 /HPF (0-2); UACC Culture Trigger YES
[2024-04-13 17:06] LABS: Valproate 29.3 mcg/mL (50.0-100.0)
[2024-04-13 20:00] VITALS: BP 101/57; PULSE 73; RESP 18; TEMP 36.6; O2SAT 98
[2024-04-13 20:20] VITALS: BP 106/68
[2024-04-13] MEDS: OLANZapine 10 MG TABLET 20 MG PO (20:20)
[2024-04-13] MEDS: traZODone HCL 50 MG TABLET PO (20:20)
[2024-04-13] MEDS: Prazosin HCL 1 MG CAPSULE 2 MG PO (20:20)
[2024-04-13] MEDS: Acetaminophen 325 MG TABLET 650 MG PO (20:21)
[2024-04-14] MEDS: Levothyroxine Sodium 112 MCG TABLET PO (06:52)
[2024-04-14 08:00] VITALS: BP 108/64; PULSE 72; RESP 14; TEMP 36.6; O2SAT 97
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
--- NOTE | 2024-04-14 17:13 | PC.NURSE ---
Denice signed a 3 day notice with this nurse. The previous form had been filled out incorrectly by Denice.
[2024-04-14] MEDS: hydrOXYzine HCL 25 MG TABLET PO (18:17)
[2024-04-14 20:00] VITALS: BP 93/52; PULSE 64; RESP 16; TEMP 36.1; O2SAT 95
[2024-04-14] MEDS: Divalproex Sodium 250 MG TABLET.DR PO (20:50)
[2024-04-14] MEDS: OLANZapine 10 MG TABLET 20 MG PO (20:51)
[2024-04-14] MEDS: Acetaminophen 325 MG TABLET 650 MG PO (20:57)
[2024-04-14] MEDS: Midodrine HCl 5 MG TABLET PO (22:38)
[2024-04-14 23:50] VITALS: BP 114/68
[2024-04-14] MEDS: Prazosin HCL 1 MG CAPSULE 2 MG PO (23:50)
[2024-04-15] MEDS: Acetaminophen 325 MG TABLET 650 MG PO ×2 (06:26→18:38)
[2024-04-15] MEDS: Levothyroxine Sodium 112 MCG TABLET PO (06:27)
[2024-04-15 08:00] VITALS: BP 98/51; PULSE 73; RESP 14; TEMP 36.4; O2SAT 97
[2024-04-15] MEDS: hydrOXYzine HCL 25 MG TABLET PO ×2 (09:58→18:37)
[2024-04-15] MEDS: Midodrine HCl 5 MG TABLET PO (12:57)
[2024-04-15] MEDS: Hydrocortisone 10 MG TABLET PO (12:58)
[2024-04-15] MEDS: Divalproex Sodium 250 MG TABLET.DR PO ×2 (12:58→20:37)
--- NOTE | 2024-04-15 13:52 | HO.PSYCHPN ---
Subjective Subjective Date of Service: 04/15/24 Reason For Visit: Schizophrenia, generalized anxiety, stimulant use Subjective Notes: Rodriguez Warning, Conditional Voluntary and 3 Day Healthcare Proxy: No Interim History: Patient somewhat lethargic in a motivational focused on returning home. Poor historian no clear narrative memory or clear memory for her medication patient mostly isolated spending a lot of time in bed Medication Compliance: Yes Mental Status Exam Mental Status Exam Narrative: Patient remains irritable and anxious when asked questions regarding overdose. Focused on returning home guarded limited insight Has delusional preoccupation regarding stroke and neurological impairment it appears by history and presently denies active SI HI anxious dysphoric somatic delusional poor insight Diagnostics Vital Signs (24Hr): Vital Signs - 24 hr 04/14/24 20:00 04/14/24 23:50 04/15/24 08:00 Temperature 96.9 F 97.5 F Pulse Rate 64 73 Respiratory Rate 16 14 Blood Pressure 93/52 L 114/68 98/51 L Pulse Oximetry 95 97 Oxygen Delivery Method Room Air Room Air BMI result Body Mass Index 26.3 Labs Labs: Laboratory Results - last 48 hr 04/13/24 04/13/24 16:44 16:45 Ammonia 20 Urine Color Yellow Urine Appearance Clear Urine pH 8.0 Ur Specific [place] 1.010 Urine Protein Negative Urine Glucose (UA) Negative Urine Ketones Negative Urine Blood Negative Urine Nitrite Negative Ur Leukocyte Esterase Moderate (2+) H Urine RBC 0-2 Urine WBC 11-20 H Ur Squamous Epith Cells 6-10 Urine Bacteria None Seen Hyaline Casts 0-2 Valproic Acid 29.3 L Medications Medications Current Medications Acetaminophen (Acetaminophen 325 Mg Tablet) 650 mg PO Q6H PRN PRN Reason: Headache/Pain Mild Scale (1-3) Last Admin: 04/15/24 06:26 Dose: 650 mg Al Hydroxide/Mg Hydroxide (Magnesium Hydrox/Alum Hydrox 30 Ml Oral.Susp) 30 ml PO Q6H PRN PRN Reason: Heartburn/Nausea Divalproex Sodium (Divalproex Sodium 250 Mg Tablet.Dr) 250 mg PO BID YOSELIN Last Admin: 04/15/24 12:58 Dose: 250 mg Hydrocortisone (Hydrocortisone 10 Mg Tablet) 10 mg PO BIDWM YOSELIN Last Admin: 04/15/24 12:58 Dose: 10 mg Hydroxyzine HCl (Hydroxyzine Hcl 25 Mg Tablet) 25 mg PO Q6H PRN PRN Reason: Anxiety Last Admin: 04/15/24 09:58 Dose: 25 mg Levothyroxine Sodium (Levothyroxine Sodium 112 Mcg Tablet) 112 mcg PO DAILY@0600 COUNT INCLUDES THE [facility] Last Admin: 04/15/24 06:27 Dose: 112 mcg Magnesium Hydroxide (Milk Of Magnesia 30 Ml Oral.Susp) 30 ml PO DAILY PRN PRN Reason: Constipation Melatonin (Melatonin 3 Mg Tablet) 3 mg PO BEDTIME PRN PRN Reason: Insomnia Midodrine (Midodrine Hcl 5 Mg Tablet) 5 mg PO TID YOSELIN Last Admin: 04/15/24 12:57 Dose: 5 mg Nicotine (Nicotine 21 Mg Patch.Td24) 21 mg TRANSDERMA DAILY PRN PRN Reason: nicotine cravings Nicotine Polacrilex (Nicotine Polacrilex 2 Mg Gum) 4 mg BUCCAL Q2H PRN PRN Reason: Nicotine Cravings Olanzapine (Olanzapine 10 Mg Tablet) 20 mg PO BEDTIME YOSELIN Last Admin: 04/14/24 20:51 Dose: 20 mg Prazosin HCl (Prazosin Hcl 1 Mg Capsule) 2 mg PO BEDTIME YOSELIN; Protocol Last Admin: 04/14/24 23:50 Dose: 2 mg Trazodone HCl (Trazodone Hcl 50 Mg Tablet) 50 mg PO BEDTIME MRX1 PRN PRN Reason: Insomnia Last Admin: 04/13/24 20:20 Dose: 50 mg Allergies Allergies Allergy/AdvReac Type Severity Reaction Status Date / Time risperidone Allergy Unknown Verified 04/12/24 22:01 Assessment & Plan Assessment & Plan (1) Schizoaffective disorder, bipolar type: Status: Acute Code(s): F25.0 - Schizoaffective disorder, bipolar type (2) Overdose by ingestion: Status: Acute Code(s): T50.901A - Poisoning by unspecified drugs, medicaments and biological substances, accidental (unintentional), initial encounter Plan Patient is status post what appears to be accidental overdose what appears to be most likely opiates would be good if someone be able to go to the house to see if the patient's discharge medications which she states she went home with our in the house. Patient states she is on Abilify long-acting injectable that she did get her Evista this needs to be confirmed she has been on olanzapine and Depakote Continue Depakote and olanzapine at present need to get some in information as possible possibly who called police or ambulance is there more significant substance problem patient reportedly has visiting nurse would benefit from coordination care getting additional information Patient is somewhat flaccid disengaged regarding seriousness of recent events coordinate with [facility] may benefit from discharge to respite as a transition Check UA ammonia Depakote 04/14/24 Pt seen in f/u mood has been irritable lethargic this am lower depakote get d/c [place] to clarify meds ? respite given recent readmission has 3 day notice seems uncaring regarding overdose meds reviewed from a [id number] Continue plan of care check head CT scan although no obvious neurological symptoms patient poor historian states she has a history of CVA unclear delusional preoccupation Patient educated on: diagnosis, medication risk/benefits, substance abuse and therapeutic strategies Informed Consent: further education needed Reason for continued inpatient stay Substantial Risk for: harm to self, inability to function and rapid decompensation Time Spent With Patient Time: Total time managing care of this patient today ____ minutes.
[2024-04-15 20:00] VITALS: BP 103/67; PULSE 87; TEMP 36.7; O2SAT 99
[2024-04-15] MEDS: OLANZapine 10 MG TABLET 20 MG PO (20:36)
[2024-04-15] MEDS: Midodrine HCl 10 MG TABLET PO (20:36)
[2024-04-15 20:37] VITALS: BP 103/67
[2024-04-15] MEDS: Prazosin HCL 1 MG CAPSULE 2 MG PO (20:37)
[2024-04-15] MEDS: traZODone HCL 50 MG TABLET PO (22:07)
[2024-04-16 10:05] VITALS: BP 100/67; PULSE 87; RESP 14; TEMP 36.8; O2SAT 96
[2024-04-16] MEDS: Hydrocortisone 10 MG TABLET PO ×2 (10:06→18:43)
[2024-04-16] MEDS: Divalproex Sodium 250 MG TABLET.DR PO ×2 (10:07→20:05)
[2024-04-16] MEDS: Levothyroxine Sodium 112 MCG TABLET PO ×2 (10:07→10:11)
[2024-04-16] MEDS: Midodrine HCl 10 MG TABLET PO ×2 (10:07→20:05)
--- NOTE | 2024-04-16 10:11 | HO.PSYCHPN ---
Subjective Subjective Date of Service: 04/16/24 Reason For Visit: Schizophrenia, generalized anxiety, stimulant use Interim History: Discussed in team. Patient remains isolative in her room most of the day. She offers no complaints. She is reported to be hyperreligious at times. Preoccupied. Says she is tired because I took some meds earlier. Denies SI. Patient somewhat lethargic in a motivational focused on returning home. Poor historian no clear narrative memory or clear memory for her medication patient mostly isolated spending a lot of time in bed. Review of Systems Cardiovascular: Reports no additional cardiovascular complaints Respiratory: Reports no additional respiratory complaints Gastrointestinal: Reports no additional gastrointestinal complaints Mental Status Exam Mental Status Exam Narrative: Patient remains irritable and anxious when asked questions regarding overdose. Focused on returning home guarded limited insight Has delusional preoccupation regarding stroke and neurological impairment it appears by history and presently denies active SI HI anxious dysphoric somatic delusional poor insight Diagnostics Vital Signs (24Hr): Vital Signs - 24 hr 04/15/24 20:00 04/15/24 20:37 Temperature 98.0 F Pulse Rate 87 Blood Pressure 103/67 103/67 Pulse Oximetry 99 Oxygen Delivery Method Room Air BMI result Body Mass Index 26.3 Medications Medications Current Medications Acetaminophen (Acetaminophen 325 Mg Tablet) 650 mg PO Q6H PRN PRN Reason: Headache/Pain Mild Scale (1-3) Last Admin: 04/15/24 18:38 Dose: 650 mg Al Hydroxide/Mg Hydroxide (Magnesium Hydrox/Alum Hydrox 30 Ml Oral.Susp) 30 ml PO Q6H PRN PRN Reason: Heartburn/Nausea Divalproex Sodium (Divalproex Sodium 250 Mg Tablet.) 250 mg PO BID [facility] Last Admin: 04/16/24 10:07 Dose: 250 mg Hydrocortisone (Hydrocortisone 10 Mg Tablet) 10 mg PO BIDWM [facility] Last Admin: 04/16/24 10:06 Dose: 10 mg Hydroxyzine HCl (Hydroxyzine Hcl 25 Mg Tablet) 25 mg PO Q6H PRN PRN Reason: Anxiety Last Admin: 04/15/24 18:37 Dose: 25 mg Levothyroxine Sodium (Levothyroxine Sodium 112 Mcg Tablet) 112 mcg PO DAILY@0600 [facility] Last Admin: 04/16/24 10:07 Dose: 112 mcg Magnesium Hydroxide (Milk Of Magnesia 30 Ml Oral.Susp) 30 ml PO DAILY PRN PRN Reason: Constipation Melatonin (Melatonin 3 Mg Tablet) 3 mg PO BEDTIME PRN PRN Reason: Insomnia Midodrine (Midodrine Hcl 10 Mg Tablet) 10 mg PO TID [facility] Last Admin: 04/16/24 10:07 Dose: 10 mg Nicotine (Nicotine 21 Mg Patch.Td24) 21 mg TRANSDERMA DAILY PRN PRN Reason: nicotine cravings Nicotine Polacrilex (Nicotine Polacrilex 2 Mg Gum) 4 mg BUCCAL Q2H PRN PRN Reason: Nicotine Cravings Olanzapine (Olanzapine 10 Mg Tablet) 20 mg PO BEDTIME [facility] Last Admin: 04/15/24 20:36 Dose: 20 mg Prazosin HCl (Prazosin Hcl 1 Mg Capsule) 2 mg PO BEDTIME YOSELIN; Protocol Last Admin: 04/15/24 20:37 Dose: 2 mg Trazodone HCl (Trazodone Hcl 50 Mg Tablet) 50 mg PO BEDTIME MRX1 PRN PRN Reason: Insomnia Last Admin: 04/15/24 22:07 Dose: 50 mg Allergies Allergies Allergy/AdvReac Type Severity Reaction Status Date / Time risperidone Allergy Unknown Verified 04/12/24 22:01 Assessment & Plan Assessment & Plan (1) Schizoaffective disorder, bipolar type: Status: Acute Code(s): F25.0 - Schizoaffective disorder, bipolar type (2) Overdose by ingestion: Status: Acute Code(s): T50.901A - Poisoning by unspecified drugs, medicaments and biological substances, accidental (unintentional), initial encounter Plan Patient is status post what appears to be accidental overdose what appears to be most likely opiates would be good if someone be able to go to the house to see if the patient's discharge medications which she states she went home with our in the house. Patient states she is on Abilify long-acting injectable that she did get her Evista this needs to be confirmed she has been on olanzapine and Depakote Continue Depakote and olanzapine at present need to get some in information as possible possibly who called police or ambulance is there more significant substance problem patient reportedly has visiting nurse would benefit from coordination care getting additional information Patient is somewhat flaccid disengaged regarding seriousness of recent events coordinate with [facility] may benefit from discharge to respite as a transition Check UA ammonia Depakote 04/14/24 Pt seen in f/u mood has been irritable lethargic this am lower depakote get d/c [facility] [place] to clarify meds ? respite given recent readmission has 3 day notice seems uncaring regarding overdose meds reviewed from [phone] Continue plan of care check head CT scan although no obvious neurological symptoms patient poor historian states she has a history of CVA unclear delusional preoccupation 04/16: continue current management and treatment plan. Reason for continued inpatient stay Substantial Risk for: harm to self, inability to function and rapid decompensation Time Spent With Patient Time: Total time managing care of this patient today ____ minutes.
[2024-04-16] MEDS: Acetaminophen 325 MG TABLET 650 MG PO (18:43)
[2024-04-16] MEDS: Nicotine Polacrilex 2 MG GUM 4 MG BUCCAL (18:44)
[2024-04-16 19:44] VITALS: BP 116/63; PULSE 92; RESP 16; TEMP 36.6; O2SAT 98
[2024-04-16 20:03] VITALS: BP 118/80; PULSE 89; RESP 14; TEMP 36.3; O2SAT 98
[2024-04-16] MEDS: Prazosin HCL 1 MG CAPSULE 2 MG PO (20:05)
[2024-04-16] MEDS: OLANZapine 10 MG TABLET 20 MG PO (20:05)
[2024-04-16] MEDS: Melatonin 3 MG TABLET PO (22:14)
[2024-04-16] MEDS: traZODone HCL 50 MG TABLET PO (22:14)
[2024-04-16] MEDS: hydrOXYzine HCL 25 MG TABLET PO (22:16)
[2024-04-17] MEDS: Acetaminophen 325 MG TABLET 650 MG PO ×2 (06:23→18:04)
[2024-04-17 08:00] VITALS: BP 112/60; PULSE 77; RESP 14; TEMP 36.8; O2SAT 99
[2024-04-17] MEDS: Hydrocortisone 10 MG TABLET PO ×2 (09:52→18:04)
[2024-04-17] MEDS: Divalproex Sodium 250 MG TABLET.DR PO ×2 (09:52→20:47)
[2024-04-17] MEDS: Levothyroxine Sodium 112 MCG TABLET PO (09:52)
[2024-04-17] MEDS: Midodrine HCl 10 MG TABLET PO ×2 (09:52→20:49)
--- NOTE | 2024-04-17 10:23 | P.PNPSI_ITS ---
Subjective Subjective Date of Service: 04/17/24 Reason For Visit: Schizophrenia, generalized anxiety, stimulant use Interim History: Discussed in team. Patient remains isolative in her room most of the day. She came out yesterday afternoon and was noted to be delusional talking about her purpose of saving the world and being next in [place] the [facility]. Today she tells me she is going to get her GED and go to the army. She declines to elaborate more. She offers no complaints. Denies SI. Review of Systems Cardiovascular: Reports no additional cardiovascular complaints Respiratory: Reports no additional respiratory complaints Gastrointestinal: Reports no additional gastrointestinal complaints Mental Status Exam Mental Status Exam Narrative: Patient remains irritable and anxious when asked questions regarding overdose. Focused on returning home guarded limited insight Has delusional preoccupation regarding stroke and neurological impairment it appears by history and presently denies active SI HI anxious dysphoric somatic delusional poor insight Diagnostics Vital Signs (24Hr): Vital Signs - 24 hr 04/16/24 19:44 04/16/24 20:03 04/17/24 08:00 Temperature 98 F 97.4 F 98.2 F Pulse Rate 92 89 77 Respiratory Rate 16 14 14 Blood Pressure 116/63 118/80 112/60 Pulse Oximetry 98 98 99 Oxygen Delivery Method Room Air Room Air BMI result Body Mass Index 26.3 Medications Medications Current Medications Acetaminophen (Acetaminophen 325 Mg Tablet) 650 mg PO Q6H PRN PRN Reason: Headache/Pain Mild Scale (1-3) Last Admin: 04/17/24 06:23 Dose: 650 mg Al Hydroxide/Mg Hydroxide (Magnesium Hydrox/Alum Hydrox 30 Ml Oral.Susp) 30 ml PO Q6H PRN PRN Reason: Heartburn/Nausea Divalproex Sodium (Divalproex Sodium 250 Mg Tablet.) 250 mg PO BID [facility] Last Admin: 04/17/24 09:52 Dose: 250 mg Hydrocortisone (Hydrocortisone 10 Mg Tablet) 10 mg PO BIDWM [facility] Last Admin: 04/17/24 09:52 Dose: 10 mg Hydroxyzine HCl (Hydroxyzine Hcl 25 Mg Tablet) 25 mg PO Q6H PRN PRN Reason: Anxiety Last Admin: 04/16/24 22:16 Dose: 25 mg Levothyroxine Sodium (Levothyroxine Sodium 112 Mcg Tablet) 112 mcg PO DAILY@0600 [facility] Last Admin: 04/17/24 09:52 Dose: 112 mcg Magnesium Hydroxide (Milk Of Magnesia 30 Ml Oral.Susp) 30 ml PO DAILY PRN PRN Reason: Constipation Melatonin (Melatonin 3 Mg Tablet) 3 mg PO BEDTIME PRN PRN Reason: Insomnia Last Admin: 04/16/24 22:14 Dose: 3 mg Midodrine (Midodrine Hcl 10 Mg Tablet) 10 mg PO TID [facility] Last Admin: 04/17/24 09:52 Dose: 10 mg Nicotine (Nicotine 21 Mg Patch.Td24) 21 mg TRANSDERMA DAILY PRN PRN Reason: nicotine cravings Nicotine Polacrilex (Nicotine Polacrilex 2 Mg Gum) 4 mg BUCCAL Q2H PRN PRN Reason: Nicotine Cravings Last Admin: 04/16/24 18:44 Dose: 4 mg Olanzapine (Olanzapine 10 Mg Tablet) 20 mg PO BEDTIME [facility] Last Admin: 04/16/24 20:05 Dose: 20 mg Prazosin HCl (Prazosin Hcl 1 Mg Capsule) 2 mg PO BEDTIME [facility]; Protocol Last Admin: 04/16/24 20:05 Dose: 2 mg Trazodone HCl (Trazodone Hcl 50 Mg Tablet) 50 mg PO BEDTIME MRX1 PRN PRN Reason: Insomnia Last Admin: 04/16/24 22:14 Dose: 50 mg Allergies Allergies Allergy/AdvReac Type Severity Reaction Status Date / Time risperidone Allergy Unknown Verified 04/12/24 22:01 Assessment & Plan Assessment & Plan (1) Schizoaffective disorder, bipolar type: Status: Acute Code(s): F25.0 - Schizoaffective disorder, bipolar type (2) Overdose by ingestion: Status: Acute Code(s): T50.901A - Poisoning by unspecified drugs, medicaments and biological substances, accidental (unintentional), initial encounter Plan Patient is status post what appears to be accidental overdose what appears to be most likely opiates would be good if someone be able to go to the house to see if the patient's discharge medications which she states she went home with our in the house. Patient states she is on Abilify long-acting injectable that she did get her Evista this needs to be confirmed she has been on olanzapine and Depakote Continue Depakote and olanzapine at present need to get some in information as possible possibly who called police or ambulance is there more significant substance problem patient reportedly has visiting nurse would benefit from coordination care getting additional information Patient is somewhat flaccid disengaged regarding seriousness of recent events coordinate with [facility] may benefit from discharge to respite as a transition Check UA ammonia Depakote 04/14/24 Pt seen in f/u mood has been irritable lethargic this am lower depakote get d/c [place] to clarify meds ? respite given recent readmission has 3 day notice seems uncaring regarding overdose meds reviewed from a [id number] [phone] Continue plan of care check head CT scan although no obvious neurological symptoms patient poor historian states she has a history of CVA unclear delusional preoccupation 04/16: continue current management and treatment plan. 04/17: continue current management and treatment plan. Reason for continued inpatient stay Substantial Risk for: inability to function and rapid decompensation Time Spent With Patient Time: Total time managing care of this patient today ____ minutes.
[2024-04-17 20:00] VITALS: BP 112/70; PULSE 89; TEMP 36.8; O2SAT 99
[2024-04-17] MEDS: Nicotine Polacrilex 2 MG GUM 4 MG BUCCAL (20:45)
[2024-04-17] MEDS: OLANZapine 10 MG TABLET 20 MG PO (20:48)
[2024-04-17] MEDS: hydrOXYzine HCL 25 MG TABLET PO (20:48)
[2024-04-17 20:50] VITALS: BP 112/70
[2024-04-17] MEDS: traZODone HCL 50 MG TABLET PO ×2 (20:50→23:35)
[2024-04-17] MEDS: Prazosin HCL 1 MG CAPSULE 2 MG PO (20:50)
[2024-04-18 03:40] VITALS: BP 82/52; PULSE 94; TEMP 36.8
[2024-04-18 04:10] VITALS: BP 98/62; PULSE 91
[2024-04-18] MEDS: Acetaminophen 325 MG TABLET 650 MG PO ×3 (04:37→20:36)
--- NOTE | 2024-04-18 04:40 | PM.EVENT ---
Event Note Date of Service: 04/19/24 Event Note: The patient reports bumping her head against the wall while trying to go to bed; this incident was not witnessed. I observed her standing in the hallway, appearing quite delusional she tried call 911 for the incident. She expressed a desire to go to the ED due to a history of multiple strokes, although this has not been verified. On examination, including a neurological assessment, no abnormalities were found, and there is no visible injury to her scalp. A CT scan of the head has been requested, and Tylenol was offered for pain management and she was reassured Time Spent With Patient Time: Total time managing care of this patient today ____ minutes.
[2024-04-18] MEDS: hydrOXYzine HCL 25 MG TABLET PO ×2 (05:48→14:59)
[2024-04-18] MEDS: Levothyroxine Sodium 112 MCG TABLET PO (05:48)
[2024-04-18] MEDS: Nicotine Polacrilex 2 MG GUM 4 MG BUCCAL ×4 (06:51→20:36)
--- NOTE | 2024-04-18 07:43 | PC.NURSE ---
Pt came to staff at 0340 reporting an unwitnessed bumping of her head against the wall as she got back into bed after returning from the bathroom. Pt reported having a stroke 2-3 months ago that was treated at [facility], though no documentation could be found of this. Pt reported 10/10 pain to left, upper rear of head. No bruising or swelling was noted, though pt reported tenderness upon palpation. Pt had refused the 1500 dose of Midodrine 10mg of the TID scheduled order on 04/17 and BP was low at 82/52, 94 P at 0340. By 0410, BP was 98/62, 91 P. Pt declined to allow this sheet writer to do a stroke assessment, and stated she wanted to go to the ED at that time. Dr Kathryn Vergara was informed at 0408 and orders were obtained for Head CT routine, Neuro Checks Q 2 hours and hospitalist consult. Pt called 911 to seek faster care. Pt was seen shortly afterwards by Dr Herrera at about 0420. Pt utilized PRN Tylenol for pain and PRN Hydoxyzine for anxiety with some good effect by observation. Pt was escorted by a Security and nursing staff to CT without issue. Prior to leaving for CT, pt asked if she would be returning to . Pt was able to rest for awhile upon return to unit.
[2024-04-18 08:00] VITALS: BP 108/62; PULSE 86; RESP 16; TEMP 36.4; O2SAT 99
[2024-04-18] MEDS: Divalproex Sodium 250 MG TABLET.DR PO ×2 (09:15→20:36)
[2024-04-18] MEDS: Hydrocortisone 10 MG TABLET PO (09:15)
[2024-04-18] MEDS: Midodrine HCl 10 MG TABLET PO ×3 (09:15→20:35)
--- NOTE | 2024-04-18 09:58 | P.PNPSI_ITS ---
Subjective Subjective Date of Service: 04/18/24 Reason For Visit: Schizophrenia, generalized anxiety, stimulant use Subjective Notes: 3 Day Interim History: Pt slept through the night. She denies SI/HI. She reports she has goals for discharge including getting [facility]. She is pleasant on approach. She does remember this feature writer from previous admission. Some grandiose ideas. No behavioral concerns. She continues to denied intentional OD on meds as suicide attempt. She does report that she used cocaine and this may have caused change in behavior. Review of Systems Cardiovascular: Reports no additional cardiovascular complaints Respiratory: Reports no additional respiratory complaints Gastrointestinal: Reports no additional gastrointestinal complaints Diagnostics Vital Signs (24Hr): Vital Signs - 24 hr 04/17/24 20:00 04/17/24 20:50 04/18/24 03:40 Temperature 98.3 F 98.2 F Pulse Rate 89 94 Respiratory Rate Blood Pressure 112/70 112/70 82/52 L Pulse Oximetry 99 Oxygen Delivery Method Room Air 04/18/24 04:10 04/18/24 08:00 Temperature 97.5 F Pulse Rate 91 86 Respiratory Rate 16 Blood Pressure 98/62 108/62 Pulse Oximetry 99 Oxygen Delivery Method Room Air BMI result Body Mass Index 26.3 Imaging Radiology Impressions: ITS Impressions Cervical Spine CT 04/18/24 05:00 IMPRESSION: 1. No acute intracranial pathology. 2. Right maxillary and ethmoidal sinusitis. 3. No acute fracture or traumatic subluxation of the cervical spine. Head CT 04/18/24 05:00 IMPRESSION: 1. No acute intracranial pathology. 2. Right maxillary and ethmoidal sinusitis. 3. No acute fracture or traumatic subluxation of the cervical spine. Medications Medications Current Medications Acetaminophen (Acetaminophen 325 Mg Tablet) 650 mg PO Q6H PRN PRN Reason: Headache/Pain Mild Scale (1-3) Last Admin: 04/18/24 04:37 Dose: 650 mg Al Hydroxide/Mg Hydroxide (Magnesium Hydrox/Alum Hydrox 30 Ml Oral.Susp) 30 ml PO Q6H PRN PRN Reason: Heartburn/Nausea Divalproex Sodium (Divalproex Sodium 250 Mg Tablet.Dr) 250 mg PO BID [facility] Last Admin: 04/18/24 09:15 Dose: 250 mg Hydrocortisone (Hydrocortisone 10 Mg Tablet) 10 mg PO BIDWM [facility] Last Admin: 04/18/24 09:15 Dose: 10 mg Hydroxyzine HCl (Hydroxyzine Hcl 25 Mg Tablet) 25 mg PO Q6H PRN PRN Reason: Anxiety Last Admin: 04/18/24 05:48 Dose: 25 mg Levothyroxine Sodium (Levothyroxine Sodium 112 Mcg Tablet) 112 mcg PO DAILY@0600 [facility] Last Admin: 04/18/24 05:48 Dose: 112 mcg Magnesium Hydroxide (Milk Of Magnesia 30 Ml Oral.Susp) 30 ml PO DAILY PRN PRN Reason: Constipation Melatonin (Melatonin 3 Mg Tablet) 3 mg PO BEDTIME PRN PRN Reason: Insomnia Last Admin: 04/16/24 22:14 Dose: 3 mg Midodrine (Midodrine Hcl 10 Mg Tablet) 10 mg PO TID [facility] Last Admin: 04/18/24 09:15 Dose: 10 mg Nicotine (Nicotine 21 Mg Patch.Td24) 21 mg TRANSDERMA DAILY PRN PRN Reason: nicotine cravings Nicotine Polacrilex (Nicotine Polacrilex 2 Mg Gum) 4 mg BUCCAL Q2H PRN PRN Reason: Nicotine Cravings Last Admin: 04/18/24 09:16 Dose: 4 mg Olanzapine (Olanzapine 10 Mg Tablet) 20 mg PO BEDTIME [facility] Last Admin: 04/17/24 20:48 Dose: 20 mg Prazosin HCl (Prazosin Hcl 1 Mg Capsule) 1 mg PO BEDTIME [facility]OSEL[facility]; Protocol Trazodone HCl (Trazodone Hcl 50 Mg Tablet) 50 mg PO BEDTIME MRX1 PRN PRN Reason: Insomnia Last Admin: 04/17/24 23:35 Dose: 50 mg Allergies Allergies Allergy/AdvReac Type Severity Reaction Status Date / Time risperidone Allergy Unknown Verified 04/12/24 22:01 Assessment & Plan Assessment & Plan (1) Schizoaffective disorder, bipolar type: Status: Acute Code(s): F25.0 - Schizoaffective disorder, bipolar type (2) Overdose by ingestion: Status: Acute Code(s): T50.901A - Poisoning by unspecified drugs, medicaments and biological substances, accidental (unintentional), initial encounter Plan Patient is status post what appears to be accidental overdose what appears to be most likely opiates would be good if someone be able to go to the house to see if the patient's discharge medications which she states she went home with our in the house. Patient states she is on Abilify long-acting injectable that she did get her Evista this needs to be confirmed she has been on olanzapine and Depakote Continue Depakote and olanzapine at present need to get some in information as possible possibly who called police or ambulance is there more significant substance problem patient reportedly has visiting nurse would benefit from coordination care getting additional information Patient is somewhat flaccid disengaged regarding seriousness of recent events coordinate with [facility] may benefit from discharge to respite as a transition Check UA ammonia Depakote 04/14/24 Pt seen in f/u mood has been irritable lethargic this am lower depakote get d/c [place] to clarify meds ? respite given recent readmission has 3 day notice seems uncaring regarding overdose meds reviewed from [facility] [id number] [phone] Continue plan of care check head CT scan although no obvious neurological symptoms patient poor historian states she has a history of CVA unclear delusion al preoccupation 04/16: continue current management and treatment plan. 04/17: continue current management and treatment plan. 04/18 continue tx. dc tomorrow if no additional concerns. Reason for continued inpatient stay Substantial Risk for: inability to function Time Spent With Patient Time: Total time managing care of this patient today ____ minutes.
[2024-04-18 20:00] VITALS: BP 127/79; PULSE 79; RESP 16; TEMP 36.3; O2SAT 100
[2024-04-18] MEDS: Melatonin 3 MG TABLET PO (20:35)
[2024-04-18] MEDS: traZODone HCL 50 MG TABLET PO (20:35)
[2024-04-18] MEDS: Prazosin HCL 1 MG CAPSULE PO (20:35)
[2024-04-18] MEDS: OLANZapine 10 MG TABLET 20 MG PO (20:36)
--- NOTE | 2024-04-19 09:42 | PC.NURSE ---
attempted to wake patient twice for am scheduled medication ad vitals assessment; pt would not wake; respirations even and unlabored; will reattempt in 15 min.
--- NOTE | 2024-04-19 10:14 | P.DS_ITS ---
DS: Providers Provider Date of Service: 04/19/24 Date of admission: 04/12/24 20:50 Date of discharge: 04/19/24 Primary care physician: Aurelio Dutton MD Consults: 04/13/24 09:17 Consult to Hospitalist Routine Comment: Consulting Provider: Hospitalist Reason For Exam: transfer pt 04/18/24 04:15 Consult to Hospitalist Routine Comment: Consulting Provider: Hospitalist Reason For Exam: Fall, head trauma, hx of stroke DS: Diagnosis Discharge Diagnosis (1) Schizoaffective disorder, bipolar type: Status: Acute (2) Cocaine use disorder, moderate, dependence: Status: Acute (3) Opiate abuse, episodic: Status: Acute DS: Medications Discharge Medications Home Medications: Previous Rx's ?Medication ?Instructions ?Recorded divalproex 250 mg tablet,delayed 250 mg PO BID #28 tabs 04/19/24 release hydrocortisone 10 mg tablet 10 mg PO BIDWM #28 tabs 04/19/24 (Cortef) levothyroxine 112 mcg tablet 112 mcg PO DAILY@0600 #7 tabs 04/19/24 melatonin 3 mg tablet 3 mg PO BEDTIME PRN Insomnia #14 04/19/24 tabs midodrine 10 mg tablet 10 mg PO TID #14 tabs 04/19/24 nicotine (polacrilex) 2 mg gum 4 mg buccal Q2H PRN Nicotine 04/19/24 Cravings #60 ea olanzapine 20 mg tablet 20 mg PO BEDTIME #7 tabs 04/19/24 prazosin 1 mg capsule 1 mg PO BEDTIME #7 caps 04/19/24 Mental Status Exam Mental Status Exam Narrative: Appearance: casually dressed, good hygiene, in NAD Behavior: cooperative Psychomotor: no agitation or retardation noted Speech: clear, normal rate/rhythm/volume, spontaneous TP: linear TC: wanting to go home, getting GED Mood: good Affect: expansive, not hostile SI: denies HI: none VH/AH: residual AH Delusions: residual grandiose and taoist delusions Insight/judgment: fair x 2. memory/cog: alert, oriented x 3. grossly intact to conversational testing. Data Data Completed and Pending Completed studies during hospitalization [Text1]: 04/13/24 04/13/24 04/13/24 09:31 09:34 16:44 Estimat Average Glucose 94 Hemoglobin A1c % 4.9 Magnesium 2.0 Ammonia 20 Triglycerides 91 Cholesterol 128 LDL Cholesterol, Calc 68 HDL Cholesterol 42 Vitamin B12 515 Folate 8.0 TSH 11.95 H Free T4 0.72 Urine Color Urine Appearance Urine pH Ur Specific [place] Urine Protein Urine Glucose (UA) Urine Ketones Urine Blood Urine Nitrite Ur Leukocyte Esterase Urine RBC Urine WBC Ur Squamous Epith Cells Urine Bacteria Hyaline Casts Valproic Acid 04/13/24 16:45 Estimat Average Glucose Hemoglobin A1c % Magnesium Ammonia Triglycerides Cholesterol LDL Cholesterol, Calc HDL Cholesterol Vitamin B12 Folate TSH Free T4 Urine Color Yellow Urine Appearance Clear Urine pH 8.0 Ur Specific [place] 1.010 Urine Protein Negative Urine Glucose (UA) Negative Urine Ketones Negative Urine Blood Negative Urine Nitrite Negative Ur Leukocyte Esterase Moderate (2+) H Urine RBC 0-2 Urine WBC 11-20 H Ur Squamous Epith Cells 6-10 Urine Bacteria None Seen Hyaline Casts 0-2 Valproic Acid 29.3 L 04/13/24 Unknown Urine clean catch - Clean Catch Midstream Urine Culture - Final Imaging Diagnostic Imaging Impressions Cervical Spine CT 04/18/24 05:00 IMPRESSION: 1. No acute intracranial pathology. 2. Right maxillary and ethmoidal sinusitis. 3. No acute fracture or traumatic subluxation of the cervical spine. Head CT 04/18/24 05:00 IMPRESSION: 1. No acute intracranial pathology. 2. Right maxillary and ethmoidal sinusitis. 3. No acute fracture or traumatic subluxation of the cervical spine. DS: Summary Hospital Course Hospital Course: The patient is a 34-year-old female with a reported history of schizophrenia versus schizoaffective disorder. The patient is referred from [facility] Emergency room status post what appears to be drug intoxication question of opiate overdose and had a good response to Narcan. Patient was reportedly positive for cocaine and fentanyl she states she does not remember the events prior to admission. She had just been discharged from [facility] in reportedly was on olanzapine and Depakote. States she had also had an Abilify injection. Patient denies having made a suicide attempt reportedly she was discharged on Depakote 250 b.i.d. melatonin 3 at bedtime olanzapine 20 at bedtime prazosin 2 at bedtime trazodone 50 time p.r.n. hydroxyzine 50 Q 6 H p.r.n. allergies noted question of risperidone patient reportedly chronically religiously preoccupied states is a prophet and has visions. She was reportedly depressed when at [facility] prior to admission but details not known. Patient does reportedly have VNA and VISCOSITY TESTER It is not clear how the patient arrived to the emergency department. Patient does have [facility] case management she is active at the [facility] COURSE On the unit, pt was admitted on a CV and placed on 15 minutes checks for safety. She was restarted on depakote and olanzapine at bedtime. She adamantly denied that opioid OD was with intent to end her life. She presents with grandiose and taoist delusions. Over the course of the admission, pt presents less guarded, less internally preoccupied. No aggression towards self or others. She was visible on the unit, social with select peers. She signed a 3 day notice and given that there was no imminent safety concerns in terms of suicidal or homicidal ideation or gravely disable due to severity of psychiatric symptoms, pt was discharged at time of discharged. Plan is for pt to continue with outpatient services. She has VNA services. No additional safety concerns reported by her OP team. Records from recent inpatient admission at [facility] were requested but not received. Medically, pt presents with subclinical hypothyroidism, TSH >11, started on levothyroxine. Pt instructed to follow up with PCP. Status at Discharge Cognitive/behavioral status at discharge: Pt with expansive affect. Grandiose and taoist delusions at baseline. No aggression towards self or others. No SI/HI. Sleeping and eating well. Taking medications as prescribed. Given narcan on discharge for harm reduction, although substance of choice if cocaine, often laced with fenanyl. Functional status at discharge: independent ambulation Overall status at discharge: patient is progressing back to baseline Time Spent with Patient Time attestation: Total time managing care of this patient today ____ minutes. Discharge Plan Discharge Anticipated Discharge Date/Time: 04/19/24 10:06 Patient Disposition: Home, Self-Care Discharge Diagnosis: schizoaffective Disorder cocaine use disorder Referrals: [facility] [Other] - 1 Week ( ) Clubhouse: [facility] [Other] - 1 Week (Continue attending and seeking support from [facility] staff and peers ) [facility]: Ramses Chou ([facility]) [Other] - 1 Week (Call to follow up and obtain contact information for your assigned case monitor, Lisa Decker) Therapy Intake: Jeny Laurent ([facility]) [Other] - 04/28/24 10:00 am (Appointment is in person at the office ) [facility] - 05/12/24 9:00 am (Appointment is in person at the office ) Aurelio Dutton MD [Primary Care Provider] - 1 Week Discharge Medications: New divalproex 250 mg Tablet,Delayed Release (Dr/Ec) 250 mg PO BID Qty: 28 0RF nicotine (polacrilex) 2 mg Gum 4 mg buccal Q2H PRN (Reason: Nicotine Cravings) Qty: 60 0RF prazosin 1 mg Capsule 1 mg PO BEDTIME Qty: 7 0RF Protocol: Hold for SBP< HOLD for SBP < : 90 midodrine 10 mg Tablet 10 mg PO TID Qty: 14 0RF olanzapine 20 mg tablet 20 mg PO BEDTIME Qty: 7 0RF melatonin 3 mg Tablet 3 mg PO BEDTIME PRN (Reason: Insomnia) Qty: 14 0RF hydrocortisone [Cortef] 10 mg Tablet 10 mg PO BIDWM Qty: 28 0RF levothyroxine 112 mcg Tablet 112 mcg PO DAILY@0600 Qty: 7 0RF Discontinued trazodone 50 mg Tablet 50 mg PO BEDTIME 30 Days Qty: 30 0RF prazosin 1 mg Capsule 2 mg PO BEDTIME 30 Days Qty: 60 0RF Protocol: Hold for SBP< HOLD for SBP < : 90 divalproex 250 mg Tablet Extended Release 24 Hr 750 mg PO BID 30 Days Qty: 180 0RF hydroxyzine pamoate 50 mg Capsule 50 mg PO Q6H PRN (Reason: Anxiety) melatonin 3 mg Tablet 3 mg PO BEDTIME PRN (Reason: Insomnia) olanzapine 7.5 mg tablet 20 mg PO BEDTIME Discharge Orders: Discharge Order (Routine); Ordered 04/19/24 Ordered By: Mar Corral Diet: Regular diet Activity on Discharge: As tolerated Stand Alone Forms: Patient Portal Discharge page Print Language: Armenian Care Plan Goals: 1. maintain mood 2. No SI/HI 3. No aggression towards self or others Health Concerns: follow up with PCP Plan of Treatment: 1. take medications as prescribed 2. go to nearest ED or call 911 in event of emergency Assessment: Pt with expansive affect, not hostile nor irritable. Some delusional content persist. No aggression towards self or others. No SI/HI. Some residual AH/VH. Sleeping and eating well.
[2024-04-19 10:38] VITALS: BP 87/53; PULSE 70; RESP 16; TEMP 36.9; O2SAT 97
[2024-04-19] MEDS: Hydrocortisone 10 MG TABLET PO (10:40)
[2024-04-19] MEDS: Levothyroxine Sodium 112 MCG TABLET PO (10:40)
[2024-04-19] MEDS: Midodrine HCl 10 MG TABLET PO (10:40)
[2024-04-19] MEDS: Divalproex Sodium 250 MG TABLET.DR PO (10:40)
[2024-04-19] MEDS: Naloxone HCl Nasal TAKE HOME 4 MG SPRAY 8 MG NOSTRILALT (10:54)
[2024-04-19 11:20] VITALS: BP 109/65; PULSE 72; O2SAT 98
== END 2024-04-19 11:45 | disposition home or self-care (01) | DRG 750 ==
PROVIDERS: Psychiatry & Neurology Psychiatry; Admitting Provider Clinical Nurse Specialist Psychiatric/Mental Health, Adult; PCP Surgery; Visit Provider Clinical Nurse Specialist Psychiatric/Mental Health, Adult
DX: F25.0 Schizoaffective disorder, bipolar type (principal); E03.9 Hypothyroidism, unspecified; J45.20 Mild intermittent asthma, uncomplicated; F14.20 Cocaine dependence, uncomplicated; F11.10 Opioid abuse, uncomplicated; Z87.891 Personal history of nicotine dependence; Z79.890 Hormone replacement therapy; Z79.899 Other long term (current) drug therapy
CPT/HCPCS: 36415; 70450; 72125; 80061; 80164; 81001; 82140; 82607; 82746; 83036; 83735; 84439; 84443; 87086

== ENCOUNTER → 2024-04-12 20:50 | Outpatient (BNV) | payer OTHER, SELFPAY | PROVIDERS: Admitting Provider Clinical Nurse Specialist Psychiatric/Mental Health, Adult; PCP Surgery; Visit Provider Psychiatry & Neurology Psychiatry | DX: F25.0 Schizoaffective disorder, bipolar type (principal); T50.901A Poisoning by unspecified drugs, medicaments and biological substances, accidental (unintentional), initial encounter | CPT/HCPCS: 99231 ==

== ENCOUNTER → 2024-04-12 20:50 | Outpatient (BNV) | payer MEDICAID, SELFPAY | PROVIDERS: Admitting Provider Clinical Nurse Specialist Psychiatric/Mental Health, Adult; PCP Surgery; Visit Provider Student in an Organized Health Care Education/Training Program | DX: Z02.2 Encounter for examination for admission to residential institution (principal) | CPT/HCPCS: 99429; 99499 ==

== ENCOUNTER → 2024-04-12 20:50 | Outpatient (BNV) | payer OTHER, SELFPAY | PROVIDERS: Admitting Provider Clinical Nurse Specialist Psychiatric/Mental Health, Adult; PCP Surgery; Visit Provider Psychiatry & Neurology Psychiatry | DX: F25.0 Schizoaffective disorder, bipolar type (principal); T50.901A Poisoning by unspecified drugs, medicaments and biological substances, accidental (unintentional), initial encounter | CPT/HCPCS: 99232 ==

== ENCOUNTER 2024-10-06 10:06 | Inpatient (IN) | payer OTHER, SELFPAY ==
--- NOTE | ~2024-10-06 | CT_ITS ---
CLINICAL HISTORY: abnormal cxr CT chest without contrast Comparison: None Findings: The heart size is normal. The visualized thyroid and mediastinum are unremarkable. No consolidation or effusion. The upper abdomen is unremarkable. The bones are intact. IMPRESSION: 1. Unremarkable chest CT. This document has been electronically signed by: Freddy Mckinney MD on 10/06/2024 17:27:37
[2024-10-06 10:23] VITALS: BP 104/72; BP 105/74; PULSE 68; PULSE 70; RESP 14; TEMP 36.4; O2SAT 100; O2SAT 99; BMI 25.7
--- NOTE | 2024-10-06 10:30 | ECG_ITS ---
Test Reason : MEDICAL CLEARANCE Blood Pressure : */* mmHG Vent. Rate : 64 BPM Atrial Rate : 64 BPM P-R Int : 204 ms QRS Dur : 76 ms QT Int : 384 ms P-R-T Axes : 85 31 44 degrees QTcB Int : 396 ms Normal sinus rhythm Normal ECG When compared with ECG of 03-May-2021 21:20, Nonspecific T wave abnormality no longer evident in Anterior leads Referred By: Kate Rodriguez Electronically Signed By: EDITH JOY
--- NOTE | 2024-10-06 10:30 | ED.GENADULT ---
HPI - General Adult General Chief complaint: Psychiatric Symptoms Stated complaint: SI, depression, hopeless, PRINT OPERATOR on board Time Seen by Provider: 10/06/24 10:13 Source: patient and EMS Mode of arrival: EMS Limitations: no limitations History of Present Illness ED Provider: Kate Rodriguez PA-C HPI narrative: Patient is a 34 year old assigned female at with a history of cocaine use disorder, schizoaffective disorder, and opiate use disorder presenting to the emergency department today with suicidal ideation. Patient states that she was recently at [facility] and discharged to go to Respite care but her respite bed was ultimately declined. Patient states that she is being evicted from her apartment and she wants to kill herself by jumping off of a bridge and if that happens - the end of the world will then occur because she is the [facility]. Patient denies any dizziness, lightheadedness, abdominal pain, nausea, vomiting, fever, chills, blurry vision, double vision, loss of vision, chest pain, difficulty breathing, shortness of breath, back pain, night sweats, pain with urination, increased urinary frequency, increased urinary urgency, blood in her urine or stool, syncope or a near syncopal episode, recent trauma or falls, bowel incontinence, bladder incontinence, or any other complaints at this time. Relieving factors: none Exacerbating factors: none Associated symptoms: denies other symptoms Treatments prior to arrival: none Related Data Previous Rx's ?Medication ?Instructions ?Recorded divalproex 250 mg tablet,delayed 250 mg PO BID #28 tabs 04/19/24 release hydrocortisone 10 mg tablet 10 mg PO BIDWM #28 tabs 04/19/24 (Cortef) levothyroxine 112 mcg tablet 112 mcg PO DAILY@0600 #7 tabs 04/19/24 melatonin 3 mg tablet 3 mg PO BEDTIME PRN Insomnia #14 04/19/24 tabs midodrine 10 mg tablet 10 mg PO TID #14 tabs 04/19/24 nicotine (polacrilex) 2 mg gum 4 mg buccal Q2H PRN Nicotine 04/19/24 Cravings #60 ea olanzapine 20 mg tablet 20 mg PO BEDTIME #7 tabs 04/19/24 prazosin 1 mg capsule 1 mg PO BEDTIME #7 caps 04/19/24 Allergies Allergy/AdvReac Type Severity Reaction Status Date / Time risperidone Allergy Unknown Verified 10/06/24 10:29 Review of Systems Constitutional: Constitutional: Reports no additional constitutional complaints, Denies chills, Denies fever(s) and Denies night sweats Eyes: Eyes: Reports no additional eye complaints, Denies blurry vision, Denies change in vision, Denies diplopia, Denies eye discharge, Denies loss of vision and Denies eye pain ENT: Denies dizziness Cardiovascular: Cardiovascular: Reports no additional cardiovascular complaints, Denies chest pain, Denies lightheadedness, Denies Loss of Consciousness and Denies dyspnea Respiratory: Respiratory: Reports no additional respiratory complaints and Denies dyspnea Gastrointestinal: Gastrointestinal: Reports no additional gastrointestinal complaints, Denies abdominal pain, Denies melena, Denies hematochezia, Denies change in bowel habits and Denies change in stool character Genitourinary: Genitourinary: Denies hematuria, Denies urinary frequency, Denies dysuria, Denies urinary incontinence, Denies urinary hesitancy and Denies urinary urgency Musculoskeletal: Musculoskeletal: Reports no additional musculoskeletal complaints, Denies numbness and Denies tingling Neurologic: Denies dizziness, Denies loss of vision, Denies numbness and Denies tingling Psychiatric: Psychiatric: Reports no additional psychiatric complaints, Denies homicidal ideation and Reports suicidal ideation Endocrine: Endocrine: Reports no additional endocrine complaints Hematologic/Lymphatic: Hematologic/Lymphatic: Reports no additional hematologic/lymphatic complaints Allergic/Immunologic: Allergic/Immunologic: Reports no additional allergic/immunologic complaints PMF Past Medical History Attestation statement: The following information was validated with the patient. Source: old records reviewed and nursing notes reviewed Medical History Hypothyroidism Asthma Social History Social History Household Members: None Household Members Other:: lives alone Housing: Apartment Housing Other:: Moving on 05/10 Do you presently have visiting nurse or other home services: No Patient Tobacco Use Status: Former Tobacco user Tobacco use type: Cigarette Cigarette Packs Per Day: 0.25 Cigarettes Per Day: 5.0 Years Smoked: 12 Smoked in Last 30 Days: No e-Cigarette/Vaping Use: Never Used Second Hand Smoke Exposure: No Use of substances other than those prescribed or required for medical reasons: No Advance Directives: No Advance Directives Information Provided: Yes Do you have a plan to hurt others: No Plan Patient : No service: No Sexual orientation: Unable to collect Physical Exam ED Vital Signs: Vital Signs - 24 hr 10/06/24 10:23 Temperature 97.6 F Pulse Rate 68 Respiratory Rate 14 Blood Pressure 105/74 Pulse Oximetry 100 Oxygen Delivery Method Room Air BMI result Body Mass Index 25.7 Const General: cooperative, no acute distress, alert and awake Nutritional Appearance: well nourished Orientation/consciousness: patient oriented x3 Limitations: no limitations HENMT Head: Yes normal to inspection and Yes atraumatic Ears: hearing grossly normal bilaterally and external ears normal General nose exam: Normal external nose present, no nasal discharge noted and no epistaxis Face and sinus: Yes normal facial exam, No abrasion and No laceration Mouth: Normal oral and palatal mucosa present, no drooling and no muffled voice Eyes General: appearance normal, both eyes and all related structures Periorbital: periorbital findings normal Eyelids: Yes eyelids normal Conjunctivae: conjunctivae normal Pupils: Equal, round and reactive pupils present EOM: EOMs intact bilaterally Neck Neck: Yes normal visual inspection, Yes full ROM and Yes no lymphadenopathy Chest Chest palpation & inspection: normal inspection of the chest Resp Effort & Inspection: normal respiratory effort and able to speak in complete sentences GI Inspection: Yes normal to inspection Neuro General: patient oriented x3 and moves all extremities Cranial nerves: Yes Equal, round and reactive pupils present Cognition (Neuro): normal cognition Extrem General: Yes normal to inspection, Yes full ROM and Yes capillary refill normal Psych Appearance: grossly normal Mental Status: mental status grossly normal Affect: Labile affect present Attitude: Belligerent attititude/behavior present Thought process: Circumstantial thought process present and Flight of ideas present Thought content: Suicidality present Insight: Poor insight present (Psych) Medications Administered Discontinued Medications Generic Name Dose Route Start Last Admin Trade Name Freq PRN Reason Stop Dose Admin Acetaminophen 650 mg 10/06/24 11:49 10/06/24 12:57 Acetaminophen 325 Mg Tablet PO 10/06/24 11:50 650 mg ONCE ONE Administration Lorazepam 2 mg 10/06/24 13:52 10/06/24 13:56 Lorazepam 1 Mg Tablet PO 10/06/24 13:53 2 mg ONCE ONE Administration Medical Decision Making Medical Decision Making MDM Narrative: Patient is a 34 year old assigned female at with a history of cocaine use disorder, schizoaffective disorder, and opiate use disorder presenting to the emergency department today with suicidal ideation. Patient's physical exam was as noted in the physical exam portion of this note. Patient's blood work was unremarkable. Patient's EKG was unremarkable. Patient was evaluated by the CARE team who is attempting to contact [facility] and potentially get the patient placed in respite. I explained my physical exam findings as well as all test results to the patient. I answered all questions asked by the patient. Patient's disposition is pending CARE team. Differential Diagnosis Differential Diagnoses: The differential diagnosis associated with the presentation includes Suicidal ideation Admission/Observation Consideration of admission/observation: Escalation of care including admission/observation considered Disposition is pending CARE team. Consult Healthcare Provider Management of the patient was discussed with: Behavioral Health Provider (spoke to the CARE team as noted in the MDM Rationale portion of this note.) Lab Data [facility] Lab Attestation statement: I reviewed the patient's lab results. My interpretation of these results are in the MDM Rationale portion of this note. 10/06/24 11:02 10/06/24 11:02 Labs: Lab Results 10/06/24 10/06/24 Range/Units 11:02 11:03 WBC 5.5 (4.8-10.8) X10*3/uL RBC 4.00 L (4.20-5.50) X10*6/uL Hgb 11.3 L (12.0-16.0) g/dl Hct 35.4 L (37.0-47.0) % MCV 88.5 (80.0-98.0) fL MCH 28.3 (27.0-33.0) pg MCHC 31.9 (31.0-35.0) g/dl RDW 13.5 (11.0-16.0) % Plt Count 191 (160-400) X10*3/uL MPV 9.8 (9.4-12.3) fL Immature Gran % (Auto) 0.5 H (0.0-0.4) % Neut % (Auto) 65.2 (45-73) % Lymph % (Auto) 21.6 (20-40) % Sterling % (Auto) 12.2 H (2-11) % Eos % (Auto) 0.0 (0-4) % Baso % (Auto) 0.5 (0-2) % Lymph # (Auto) 1.2 (1.2-4.9) X10*3/uL Sterling # (Auto) 0.7 (0.1-1.2) X10*3/uL Eos # (Auto) 0.0 (0.0-0.4) X10*3/uL Baso # (Auto) 0.0 (0.0-0.2) X10*3/uL Abs Immat Gran (auto) 0.03 (0.00-0.03) X10*3/uL Absolute Neuts (auto) 3.6 (2.0-8.3) x10*3/uL Absolute Nucleated RBC 0.000 (0.0-0.012) X10*3/uL Nucleated RBC % (auto) 0.0 (0.0-0.2) /100WBC Sodium 139 (135-145) mmol/L Potassium 4.0 (3.3-5.1) mmol/L Chloride 109 H (96-108) mmol/L Carbon Dioxide 27 (22-29) mmol/L Anion Gap 7 L (12-20) BUN 13 (9-16) mg/dL Creatinine 0.64 (0.5-1.4) mg/dL Estim Creat Clear Calc 118.5 Estimated GFR > 60 Random Glucose 74 (60-115) mg/dL Calcium 8.4 (8.4-10.2) mg/dL Total Bilirubin 0.1 (0.0-1.0) mg/dL AST 18 (5-31) U/L ALT 10 (0-31) U/L Alkaline Phosphatase 49 (39-117) U/L Total Protein 6.7 (6.5-8.0) g/dL Albumin 3.7 (3.5-5.0) g/dL Urine Color Yellow Urine Appearance Clear Urine pH 6.0 (5.0-9.0) Ur Specific Leonore <= 1.005 (1.005-1.025) Urine Protein Negative (Neg-Trace) mg/dL Urine Glucose (UA) Negative (Negative) mg/dL Urine Ketones Negative (Negative) mg/dL Urine Blood Negative (Negative) Urine Nitrite Negative (Negative) Ur Leukocyte Esterase Trace H (Negative) Urine RBC 0-2 (0-2) /HPF Urine WBC 0-5 (0-5) /HPF Ur Squamous Epith Cells 3-5 (0-2) /HPF Urine Bacteria None Seen (None Seen) Hyaline Casts 0-2 (0-2) /LPF Urine Test NEGATIVE (NEGATIVE) Salicylates < 5.0 L (15-30) mg/dL Urine Opiates Screen Not Detected (Not Detect) Ur Buprenorphine Scrn Not Detected (Not Detect) ng/mL Ur Oxycodone Screen Not Detected (Not Detect) ng/mL Urine Methadone Screen Not Detected (Not Detect) ng/mL Urine Fentanyl Screen Not Detected (Not Detect) Acetaminophen < 3 (<30) mcg/mL Ur Barbiturates Screen Not Detected (Not Detect) Ur Phencyclidine Scrn Not Detected (Not Detect) Ur Amphetamines Screen Not Detected (Not Detect) U Benzodiazepines Scrn Not Detected (Not Detect) Urine Cocaine Screen Not Detected (Not Detect) U Marijuana (THC) Screen Not Detected (Not Detect) Ethyl Alcohol < 10 mg/dL COVID-19 (ENEIDA) Negative (Negative) COVID-19 Clin Com See Note Independent Interpretation I performed an independent interpretation of an: EKG Interpretation: I independently interpreted this EKG and am in agreement with the below findings: Vent. Rate: 64 BPM Atrial Rate: 64 BPM P-R Int: 204 ms QRS Dur: 76 ms QT Int: 384 ms P-R-T Axes: 85 31 44 degrees QTcB Int: 396 ms Normal sinus rhythm Normal ECG When compared with ECG of 03-May-2021 21:20, Nonspecific T wave abnormality no longer evident in Anterior leads [id number]/ [id number] Independent Historian Clinical information obtained from an independent historian. History obtained from or confirmed by: EMS (EMS provided additional history and confirmed the history provided by the patient.) Discharge Plan Discharge Clinical Impression: Feeling suicidal Patient Disposition: Still a Patient Prescriptions: No Action divalproex 250 mg Tablet,Delayed Release (Dr/Ec) 250 mg PO BID Qty: 28 0RF nicotine (polacrilex) 2 mg Gum 4 mg buccal Q2H PRN (Reason: Nicotine Cravings) Qty: 60 0RF prazosin 1 mg Capsule 1 mg PO BEDTIME Qty: 7 0RF Protocol: Hold for SBP< HOLD for SBP < : 90 midodrine 10 mg Tablet 10 mg PO TID Qty: 14 0RF olanzapine 20 mg tablet 20 mg PO BEDTIME Qty: 7 0RF melatonin 3 mg Tablet 3 mg PO BEDTIME PRN (Reason: Insomnia) Qty: 14 0RF hydrocortisone [Cortef] 10 mg Tablet 10 mg PO BIDWM Qty: 28 0RF levothyroxine 112 mcg Tablet 112 mcg PO DAILY@0600 Qty: 7 0RF Interventions: [place]-Suicide Risk Severity Scale Last Done: 10/06/24 10:30 Print Language: Indonesian
--- NOTE | 2024-10-06 10:35 | PC.NURSE ---
Pt comes to ED BH pod via EMS for reports of AH and SI without a plan. Per EMS, Pt was picked up and an apartment in [place] Per Pt, she was evicted from her apartment recently. She then was inpatient at [facility] and released 1 week ago. She states she is homeless and seeking housing. She attempted to call Crisis and her CARE MANAGEMENT COORDINATOR Officer for assistance with this. She denies making any statements of SI during these calls. She denies SI/HI at this time. She reports a history of a stroke in February of 2024. Denies current drug/ETOH use, reports she quit 2-3 month ago. Pt denies any injuries at this time; denies pain. Awaiting eval.
--- NOTE | 2024-10-06 11:03 | PC.NURSE ---
Pt arrives with a 12 toolbox with the following contents: 9 small pill organizers 1 large pill organizer Olanzapine 20mg--take 1 tab QD @ HS. Dated 03/11/24 for #30 pills. EMPTY BOTTLE. Midodrine 10mg--take 1 tab TID. Dated 03/11/24 for #90 pills. EMPTY BOTTLE. Levothyroxine 112 mcg--take tab 1 QD. Dated 03/11/24 for #30 pills. EMPTY BOTTLE. Divalproex Sodium DR 500mg--take 1 tab BID. Dated 03/11/24 for #60 pills. EMPTY BOTTLE. Melatonin 3mg--take 1 tab PRN @ HS. Dated 03/11/24 for #30 pills. EMPTY BOTTLE. Hydrocortisone 10mg--take 1 tab BID for Adrenal Insufficiency. Filled 06/22/24 for #30 pills. EMPTY BOTTLE. Trazodone 50mg. Take 1 tab PRN @ HS. Dated 03/11/24 for #30 pills. EMPTY BOTTLE. #20 various pills noted to be free floating within the toolbox. Pills placed in a bag and left in box. Box and all contents secured with Pts belongings.
[2024-10-06 11:14] LABS: MANUAL DIFF FLAG NO
[2024-10-06 11:15] LABS: Basophils Percent Auto 0.5 % (0-2); Hematocrit 35.4 % (37.0-47.0); Hemoglobin 11.3 g/dl (12.0-16.0); Imm Gran Abs Auto 0.03 X10*3/uL (0.00-0.03); Imm Gran Pct Auto 0.5 % (0.0-0.4); Lymphocytes Absolute Auto 1.2 X10*3/uL (1.2-4.9); Lymphocytes Percent Auto 21.6 % (20-40); Mean Corpuscular HGB Conc 31.9 g/dl (31.0-35.0); Mean Corpuscular Hemoglobin 28.3 pg (27.0-33.0); Mean Corpuscular Volume 88.5 fL (80.0-98.0); Mean Platelet Volume 9.8 fL (9.4-12.3); Monocytes Absolute Auto 0.7 X10*3/uL (0.1-1.2); Monocytes Percent Auto 12.2 % (2-11); Neutrophils Absolute Auto 3.6 x10*3/uL (2.0-8.3); Neutrophils Percent Auto 65.2 % (45-73); Platelet Count 191 X10*3/uL (160-400); Red Cell Distribution Width 13.5 % (11.0-16.0); White Blood Count 5.5 X10*3/uL (4.8-10.8)
[2024-10-06 11:16] LABS: Appearance Urine Clear; Color Urine Yellow; Glucose Urine UA Negative (Negative); Leukocyte Esterase Urine Trace (Negative); Nitrite Urine Negative (Negative); Specific Gravity - Urine <= 1.005 (1.005-1.025); UMIC TRIGGER UA YES; Urine Blood Negative (Negative); Urine Ketones Negative (Negative); Urine Protein Negative (Neg-Trace)
[2024-10-06 11:17] LABS: UPreg QC Valid YES; Urine Pregnancy NEGATIVE (NEGATIVE)
[2024-10-06 11:18] LABS: Bacteria Urine None Seen (None Seen); Hyaline Casts Urine 0-2 /LPF (0-2); RBC Urine 0-2 /HPF (0-2); WBC Urine 0-5 /HPF (0-5)
[2024-10-06 11:28] LABS: Amphetamine Screen Urine Not Detected (Not Detect); Barbiturates, Urine Not Detected (Not Detect); Benzodiazepines Screen Urine Not Detected (Not Detect); Buprenorphine Scr Not Detected (Not Detect); Cannabinoid Screen Urine Not Detected (Not Detect); Cocaine Screen Urine Not Detected (Not Detect); Fentanyl, urine Not Detected (Not Detect); Methadone Screen, Urine Not Detected (Not Detect); Opiate Screen Urine Not Detected (Not Detect); Oxycodone Screen Urine Not Detected (Not Detect); Phencyclidine Screen Urine Not Detected (Not Detect)
[2024-10-06 11:31] LABS: Acetaminophen LAB < 3 mcg/mL (<30); Alanine Aminotransferase 10 U/L (0-31); Albumin Level 3.7 g/dL (3.5-5.0); Alkaline Phosphatase 49 U/L (39-117); Anion Gap 7 (12-20); Aspartate Amino Transferase 18 U/L (5-31); Bilirubin Total 0.1 mg/dL (0.0-1.0); Blood Urea Nitrogen 13 mg/dL (9-16); Calcium 8.4 mg/dL (8.4-10.2); Carbon Dioxide 27 mmol/L (22-29); Chloride 109 mmol/L (96-108); Creatinine Clr Calc Pharmacy 118.5; Estimated Glomerular Filt Rate > 60; Ethanol < 10 mg/dL; Glucose Random 74 mg/dL (60-115); Salicylate < 5.0 mg/dL (15-30); Sodium 139 mmol/L (135-145); Total Protein 6.7 g/dL (6.5-8.0)
[2024-10-06 11:58] LABS: IDNOW Serial# 55D5AD1C
[2024-10-06 11:59] LABS: COVID-19 Test Negative (Negative)
--- NOTE | 2024-10-06 12:11 | PC.NURSE ---
Care Team at bedside for eval.
[2024-10-06] MEDS: Acetaminophen 325 MG TABLET 650 MG PO (12:57)
[2024-10-06] MEDS: LORazepam 1 MG TABLET 2 MG PO (13:56)
--- NOTE | 2024-10-06 14:56 | MHC.CARE ---
Patient evaluated by the CARE Team, disposition [facility] is familiar with her, have no beds today but will accept a referral for review. ED provider, BRIDGETTE Villalba updated and in agreement with this plan.
--- OUTSIDE RECORDS SUMMARY | 2024-10-06 15:08 | XMS_ITS | Encounter Summary ---
Author Organization [facility] Address [address] [place] [address] Care Team Providers Care Polymer Engineer Name Role Phone Arcelia Freedman PA-C Primary Care Provider [phone] Reason for Visit * Reason Comments Care Coordination Encounter Details Date Type Department Care Team (Late st Contact Info) Description 09/19/[address] [facility] [address] [place] [phone] Pamella Fitzgerald [address] [place] [address] Social History Tobacco Use Types Packs/Day Years Used Date Smoking Tobacco: Every Day Cigarettes Smokeless Tobacco: Never Comments:pt states she is cu tting back and trying to quit smoking Alcohol Use Standard Drinks/Week Comments No 0 (1 standard drink = 0.6 oz pure alcohol) ok with history, stopped 5 yrs ago Social Connections Answer Date Recorded Connectedness 0 01/29/2021 Financial Resource Strain Answer Date R ecorded Financial Resource Strain 0 2020 Stress Answer Date Recorded Stress 0 01/29/2021 Physical Activity Answer Date Recorded Physical Activity 0 01/29/2021 Food Insecurity Answer Date Recorded Food 0 01/29/2021 Transportation Needs Answer Date Record ed Transportation 0 01/29/2021 Housing Stability Answer Date Recorded Housing 0 01/29/2021 Safety and Environment Answer Date Paramjit rded Safety 0 12/02/2022 Utilities Answer Date Recorded Utilities 0 01/29/2021 Employment Answer Date Recorded Stress 0 01/29/2021 Comments No Sex and Gender Information Value Date Recorded Sex Assigned at Female 01/19/2019 11:01 AM PDT Legal Sex Female 11:36 AM PDT Gender Identity Female 01/19/2019 11:01 AM PDT Sexual Orientation Choose not to disclose 2018 11:01 AM PDT Occupation Industry Job Start Date Job End Date student Not on file Not on file Not on file documented as of this encounter Progress Notes * Pamella Fitzgerald - 09/19/2024 8:23 AM EST Patient identified through ADT feed. Patient admitted 09/15/24 and discharged 09/16/24 from [facility]. Patient is not eligible for care management at this time. Patient is engaged with [facility]. documented in this encounter Plan of Treatment Not on file documented as of this encounter Visit Diagnoses Not on filedocumented in this encounter Additional Health Concerns Assessment Noted Time PHQ-9 Depression Total Score: 0 02/09/20 24 12:00 PM PDT documented as of this encounter Care Teams Polymer Engineer Relationship Specialty Start Date End Date Arcelia Freedman PA-C [address] [place] [id number] PCP - General Internal Medicine 07/31/21 documented as of this encounter
--- OUTSIDE RECORDS SUMMARY | 2024-10-06 15:08 | XMS_ITS | Clinical Summary ---
Author Organization [facility] Address [address] [place] [address] Care Team Providers Care Dealer Account Manager Name Role Phone Arcelia Freedman PA-C Primary Care Provider Source Comments PLEASE NOTE, if this patient is a minor, it may be UNLAWFUL to discuss sensitive information that is contained in these records (such as FAMILY PLANNING, MENTAL HEALTH or SUBSTANCE ABUSE) with the minor patient's parent or other person without the patient's specific authorization.[facility] Allergies No known active allergies Medications haloperidol decanoate (HALDOL DECANOATE) 100 mg/mL injection Inject one hundred (100) milligrams into the muscle once a month 2 Active levothyroxine (SYNTHROID, LEVOXYL) 112 mcg tabletIndications: Other specified hypothyroidism Take 1 Tablet by mouth 1 time each day 90 Tablet 3 Active haloperidoL (HALDOL) 5 mg tabletIndications: Medication refill Take 1 Tablet by mouth 2 (two) times daily 60 Tablet 4 Active melatonin 3 mg tabletIndications: Medication refill TAKE 1 TABLET BY MOUTH NIGHTLY AT BEDTIME NEEDED FOR SLEEP 90 Tablet 1 4 Active traZODone (DESYREL) 150 mg tabletIndications: Medication refill TAKE 1 TABLET BY MOUTH EVERYDAY AT BEDTIME 90 Tablet 1 4 Active prazosin (MINIPRESS) 2 mg capsuleIndications :Medication refill TAKE 1 CAPSULE BY MOUTH NIGHTLY AT BEDTIME. 90 Capsule 1 4 Active divalproex (DEPAKOTE) [address] tabletIndications: Medication refill TAKE 1 TABLET BY MOUTH EVERY DAY 90 Tablet 1 4 Active OLANZapine (ZYPREXA) 20 mg tabletIndications: Medication refill TAKE 1 TABLET BY MOUTH EVERYDAY AT BEDTIME 90 Tablet 1 4 Active Active Problems Problem Noted Date Diagnosed Date Homelessness 01/05/2020 H/O CT scan of brain 05/28/2016 Overview (05/29/2016): [facility] ER 05/21/16- STANLEY was at home trying to sleep- dev STANLEY and tongue began to twist - felt nervous - neuro exam normal gave her vicodin- had a ct- no acute finding- d/estelle Weakness 05/06/2016 Overview (05/06/2016): [facility] 04/23/[address] Normal non contrast enhanced CT of the brain Chest pain 04/10/2016 Overview (05/06/2016): [facility] 04/23/16 normal cxr Normal cxr [facility] 04/01/16 Other specified hypothyroidism 10/25/2015 Overview (10/26/2015): 10/24/2015 ??8:05 PM - Interface Results ?? Component Results ?? Component Value Ref Range & Units Status Lab ?? TSH CASCADE 8.45 (H) 0.40 - ??8:06 PM - Interface Results ?? Component Results ?? Component Value Ref Range & Units Status Lab ?? FREE T4 CASCADE 0.88 0.70 - 1.80 ng/dL Final Life Labs ?? No med for now- consulting psych PROLACTIN ng/mL 8.9 Perforation of tympanic membrane, unspecified Overview (10/24/2015): [facility] Anxiety attack 05/04/2015 Overview (05/04/2015): [facility] 04/09/15: er for chest. EKG NSR with rate 69, with 1degree AV block d/estelle with tylenol and motrin PRN pain after argument; Reports this happens often and long standing PMH listed in note included Hypothyroid, and HTn hx of appyreports daily pot use Schizophrenia 06/22/2013 Overview (09/11/2016): Palmira saunders- staple side laster- [phone] sep 2016 05/07/16:Mental health:see's Steven- ( prescriber), through [facility]. Sees him every 2 months. 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 goes 3 x times weekly. no blood Dysmenorrhea Overview (10/24/2015): menarche age 14, monthly will bleed x 4 days. no contracpetion Resolved Problems Problem Noted Date Diagnosed Date Resolved Date Nausea & vomiting 10/19/2015 01/05/2020 Overview (10/19/2015): [facility] 10/15/15Ua negative SG was 1.027 Electrolytes normal. hcg neg d/estelle to home self care- clear liq Pap smear for cervical cancer screening 01/05/2020 Overview (10/24/2015): none yet Hepatitis 10/26/2015 Overview (10/26/2015): 10/24/15 Hepatitis panel drawn, all Neagtive; resolving problem told had in past,states its gone hep panel drawn 10/24/15 Encounters Date Type Department Care Team Description 09/19/2024 Interim Notes [address] [phone] Pamella Fitzgerald 07/11/2024 Interim Notes [address] [phone] Pamella Fitzgerald from Last 3 Months Immunizations Name Administration Dates Next Due Flu, Preservative Free 12/02/2022 INFLUENZA, SEASONAL, INJECTABLE 05/07/20 16,07/12/2014,08/21/2013(Deferr ed: Patient Refused - will offer again) MODERNA COVID-19 VACCINE BIV ALECHIQUIS, BLUE CAP, 6M+ 12/02/2022 TDAP 05/07/2016 Family History Medical History Relation Name Comments Stroke Mother many health prob Relation Name Status Comments Brother well Alive Father unknonw in retirement Alive Mother many health prob Alive Sister well Alive Social History Tobacco Use Types Packs/Day Years Used Date Smoking Tobacco: Every Day Cigarettes Smokeless Tobacco: Never Tobacco Cessation:Ready to Q uit: Not Asked; Counseling Given: Not Answered Comments:pt states she is cutting back and trying to quit smoking Alcohol [...] file Not on file Not on file Last Filed Vital Signs Vital Sign Reading Time Taken Comments Blood Pressure 92/65 02/09/2024 11:54 AM EDT Pulse 78 02/09/2024 11:54 AM EDT Temperature 36.5 ??C (97.7 ??F) 02/09/2024 11:54 AM E DT Respiratory Rate 18 02/09/2024 11:54 AM EDT Oxygen Saturation 98% 02/09/2024 11:54 AM EDT Inhaled Oxygen Concentration - - Weight 68 kg (150 lb) 02/09/2024 11:54 AM EDT Height 165.1 cm (5' 5 ) 02/09/2024 11:54 AM EDT Body Mass Index 24.96 02/09/2024 11:54 AM EDT Plan of Treatment Health Maintenance Due Date Last Done Comments HPV Screening 1991 LTBI Screening (#1) 1991 Pap + HPV 1991 Imm-Hepatitis A (1 of 2 - Ri sk 2-dose series) 2010 Imm-Hepatitis B (1 of 3 - 19 + 3-dose series) 2010 Cervical Cancer Screening 01/19/2012 Pap Smear 01/19/2012 Annual Preventive Care Visit 01/20/2020 01/19/2019 Tobacco Cessation Counseling (#1) 12/02/2023 019 Diabetes Screening 12/03/2023 12/02/2022, 0 12/02/2022, 07/29/2022, Additional history exists Lipid Screening 12/03/2023 12/02/2022, 12/07, 01/19/2019, Additional history exists Relationship Safety Screening/Counseling 12/03/2023 12/02/2022, 01/29/2021 TSH Monitoring 12/03/2023 12/02/2022, 07/09, 12/28/2020, Additional history exists [id number] () 05/08/2024 12/02/2022, 09/10/2021, 11/09/2020, Additional history exists Imm-Influenza (#1) 2024 12/02/2022, 1 10/23/2020, 08/07/2020, Additional history exists Alcohol and Drug Screen 09/07/2024 02/09/20, 12/02/2022, 03/21/2021, Additional history exists Depression Annual Screen 09/07/2024 02/09/2024 Hypertension Screening (#1) 02/08/2027 Imm-DTaP/Tdap/Td (5 - Td or Tdap) 03/07/2034 03/07/2024, 10/25/2017, 08/06/2017, Additional history exists Hepatitis C Screening Completed 10/24/2015 Imm-Pneumococcal Discontinued 05/31/2020 HIV Screening Completed 02/09/2024, 10/08, 10/24/2015 Cervical Ablation/Cold-Knife Conization Discontinued Cervical Cryotherapy Discontinued Colposcopy Discontinued Endometrial Biopsy Discontinued Excision/Leep Discontinued HPV Genotyping Discontinued Vaginal Pap Discontinued Vulvoscopy Discontinued Procedures Procedure Name Priority Date/Time Associated Diagnosis Comments REFERRAL SCANNED DOCUMENT 08/03/2024 3:00 AM EST HIV 1/2 AG & AB W/RFLX (4TH GEN) Routine 02/09/2024 2:05 PM EDT Vaginal burning TSH W/RFLX FREE T4 Routine 12/02/2022 11 :32 AM EDT Other specified hypothyroidism COMPREHENSIVE METABOLIC PANEL Routine 12/02/2022 11:32 AM EDT Routine lab draw LIPIDS W RFLX TO DIRECT LDL Routine 12/02/2022 11:32 AM EDT Routine lab draw HEPATITIS A,B,C PANEL Routine 10/24/2015 3:52 PM EST Routine health maintenance Screening examination for venereal disease from Last 3 Months or Most Recently Relevant to Health Maintenance Results * REFERRAL SCANNED DOCUMENT (08/03/2024 3:00 AM EST) 08/03/2024 3:00 AM EST Arcelia Freedman PA-C SCAN REFERRAL Final Result * HIV 1/2 AG & AB W/RFLX (4TH GEN) (02/09/2024 2:05 PM EDT) HIV AG/AB, 4TH GEN NON-REAC TIVE NON-REAC TIVE [facility] Comment: HIV-1 antigen and HIV-1/HIV-2 antibodies were not detected. There is no laboratory evidence of HIV infection. PLEASE NOTE: This information has been disclosed to you from records whose confidentiality may be protected by state law. ??If your state requires such protection, then the state law prohibits you from making any further disclosure of the information without the specific written consent of the person to whom it pertains, or as otherwise permitted by law. A general authorization for the release of medical or other information is NOT sufficient for this purpose. ?? For additional information please refer to http://education.[employer]/faq/LGC083 (This link is being provided for informational/ educational purposes only.) The performance of this assay has not been clinically validated in patients less than 2 years old. Blood Blood / Unknown 02/09/2024 2 :05 PM EDT 02/09/2024 2:06 PM EDT Narrative [facility] - 02/10/2024 1:44 PM EDT COLLECTION KIT GIVEN TO PATIENT. PATIENT ADVISED TO RETURN. Sunni ANGELES LAB - BLOOD DRAW Final Result [facility] [address] [place] [address], [facility] [address] [place] [phone] * (ABNORMAL) TSH W/RFLX FREE T4 (12/02/2022 11:32 AM EDT) TSH W/REFLEX TO FT4 12.08(H) 0.40 - 4.50 mIU/L [facility] Comment: ?Reference Range ?> or = 20 Years ??0.40-4.50 ? Ranges ?First trimester ?0.26-2.66 ?Second trimester ?? 0.55-2.73 ?Third trimester ?0.43-2.91 Blood Blood / Unknown 12/02/2022 1 1:32 AM EDT 12/02/2022 11:32 AM EDT Narrative [facility] - 12/03/2022 1:24 AM EDT FASTING:YES Arcelia Freedman [facility] LAB - BLOOD DRAW Final Resul t [facility] [address] [address], [facility] [address] [place] [address] * (ABNORMAL) LIPIDS W RFLX TO DIRECT LDL (12/02/2022 11:32 AM EDT) CHOLESTEROL, TOTAL 162 <200 mg/dL [facility] HDL CHOLESTEROL 38(L) > OR = 50 mg/dL [facility] TRIGLYCERIDES 88 <150 mg/dL [facility] LDL-CHOLESTEROL 106(H) 99 mg/dL (calc) [facility] Comment: Reference range: <100 Desirable range <100 mg/dL for primary prevention; ?? <70 mg/dL for patients with CHD or diabetic patients with > or = 2 CHD risk factors. LDL-C is now calculated using the Aamir calculation, which is a validated novel method providing better accuracy than the Friedewald equation in the estimation of LDL-C. Gareth LANTIGUA et al. BENNY. 2013;310(19): 8607-2537 (http://education.[employer]/faq/LCM204) CHOL/HDLC RATIO 4.3 <5.0 (calc) [facility] NON-HDL CHOLESTEROL 124 <130 mg/dL (calc) [facility] Comment: For patients with diabetes plus 1 major ASCVD risk factor, treating to a non-HDL-C goal of <100 mg/dL (LDL-C of <70 mg/dL) is considered a therapeutic option. Blood Blood / Unknown 12/02/2022 1 1:32 AM EDT 12/02/2022 11:32 AM EDT Narrative [facility] - 12/03/2022 1:24 AM EDT FASTING:YES us Arcelia Freedman PA-C LAB - BLOOD DRAW Final Resul t [facility] [address] [address], [facility] [address] [place] [address] * (ABNORMAL) COMPREHENSIVE METABOLIC PANEL (12/02/2022 11:32 AM EDT) GLUCOSE 81 65 - 99 mg/dL [facility] Comment: ?Fasting reference interval UREA NITROGEN (BUN) 9 7 - 25 mg/dL [facility] CREATININE (blood) 1.04(H) 0.50 - 0.97 mg/dL [facility] EGFR 74 > OR = 60 mL/min/1. 73m2 [facility] Comment: The eGFR is based on the CKD-EPI 2020 equation. To calculate the new eGFR from a previous Creatinine or Cystatin C result, go to https://www.kidney.org/professionals/ kdoqi/gfr%5Fcalculator BUN/CREATININE RATIO 9 6 - 22 (calc) [facility] SODIUM 140 135 - 146 mmol/L [facility] POTASSIUM 4.0 3.5 - 5.3 mmol/L [facility] CHLORIDE 105 98 - 110 mmol/L [facility] CARBON DIOXIDE 28 20 - 32 mmol/L [facility] CALCIUM 9.1 8.6 - 10.2 mg/dL [facility] PROTEIN, TOTAL 7.4 6.1 - 8.1 g/dL [facility] ALBUMIN 4.5 3.6 - 5.1 g/dL [facility] GLOBULIN 2.9 1.9 - 3.7 g/dL (calc) [facility] ALBUMIN/GLOBULI N RATIO 1.6 1.0 - 2.5 (calc) [facility] BILIRUBIN, TOTAL 0.5 0.2 - 1.2 mg/dL [facility] ALKALINE PHOSPHATASE 72 31 - 125 U/L [facility] AST 15 10 - 30 U/L [facility] ALT 14 6 - 29 U/L [facility] Blood Blood / Unknown 12/02/2022 1 1:32 AM EDT 12/02/2022 11:32 AM EDT Narrative [facility] - 12/03/2022 1:24 AM EDT FASTING:YES Arcelia Freedman PA-C LAB - BLOOD DRAW Edited Resu lt - Final Performing Organization Address City/[facility]/ZIP Co de Phone Number [facility] [address] [address], [facility] [address] [phone] * HEPATITIS A,B,C PANEL (10/24/2015 3:52 PM EST) HEPATITIS B CORE ANTIBODY NEGATIVE NEGATIVE [facility] HEPATITIS A ANTIBODY TOTAL NEGATIVE NEGATIVE [facility] Blood specimen (specimen) Blood / Unknown 10/24/2015 3:52 PM EST 10/24/2015 4:09 PM EST [facility] - 10/24/2015 7:19 PM EST [facility] [address] [place] [id number] [place] ID [id number] ORD# [id number] Aysha YOUNG[facility] - BLOOD DRAW Edited Resul t - Final Performing Organization Address City/[facility]/ZIP Co de Phone Number [facility] [address] [place] [address], from Last 3 Months or Most Recently Relevant to Health Maintenance Insurance [facility] [address] [employer] Care Teams Dealer Account Manager Relationship Specialty Start Date End Date Arcelia Freedman PA-C [address] [place] [address] PCP - General Internal Medicine 07/31/21
--- OUTSIDE RECORDS SUMMARY | 2024-10-06 15:08 | XMS_ITS | Clinical Summary ---
Author Organization [facility] Address [address] [place] [address] Care Team Providers Care Assistant Corporation Counsel Name Role Phone Joanna Sunniroe ANGELES Primary Care Pr ovider Surgical History Surgery Date Site/Laterality Comments CHOLECYSTECTOMY 05/19/2022 PROCEDURE: MS LAPAROSCOPY SURG CHOLECYSTECTOMY; COMMENT: with Dr. Aurelio Dutton at [facility] Social History Tobacco Use Types Packs/Day Years Used Date Smoking Tobacco: Every Day Alcohol Use Standard Drinks/Week Comments Never 0 (1 standard drink = 0.6 oz pur e alcohol) Sex and Gender Information Value Date Recorded Sex Assigned at Not on file Gender Identity Not on file Sexual Orientation Not on file Obstetrics History Last Filed Vital Signs Vital Sign Reading Time Taken Comments Blood Pressure 98/66 06/09/2022 2:43 PM EDT Pulse 87 06/09/2022 2:43 PM EDT Temperature - - Respiratory Rate - - Oxygen Saturation - - Inhaled Oxygen Concentration - - Weight 99.4 kg (219 lb 3.2 oz) 06/09/2022 2:43 P M EDT Height - - Body Mass Index - - Plan of Treatment Health Maintenance Due Date Last Done Comments Pneumococcal Vaccine: Pediat rics (0 to 5 Years) and At-Risk Patients (6 to 64 Years) (1 of 2 - PCV) 1997 DTaP,Tdap,and Td Vaccines (1 - Tdap) 2010 Hepatitis B Vaccines (1 of 3 - 19+ 3-dose series) 2010 Cervical Cancer Screening: P ap Smear 01/19/2012 Depression Screening 08/10/2022 HIV Screening 08/10/2022 Hepatitis C Screening 08/10/2022 Social Influencers of Health Screening 08/10/2022 COVID-19 Vaccine (1 - 2023-2 5 season) 2024 Influenza Vaccine (#1) 2024 HIB Vaccines Aged Out No longer eligi ble based on patient's age to complete this topic HPV Vaccines Aged Out No longer eligi ble based on patient's age to complete this topic Hepatitis A Vaccines Aged Out No long er eligible based on patient's age to complete this topic IPV Vaccines Aged Out No longer eligi ble based on patient's age to complete this topic MMR Vaccines Aged Out No longer eligi ble based on patient's age to complete this topic Meningococcal ACWY Vaccine Aged Out N o longer eligible based on patient's age to complete this topic RSV Immunization Patients Un alyson 20 months Aged Out No longer eligible b ased on patient's age to complete this topic Varicella Vaccines Aged Out No longer eligible based on patient's age to complete this topic Care Teams Assistant Corporation Counsel Relationship Specialty Start Date End Date Sunni Marshall PA [address] [place] [phone] PCP - General 02/11/24
--- NOTE | 2024-10-06 16:49 | PC.NURSE ---
Pt to CT for imagine. Pt escorted by security and pod staff.
[2024-10-06 16:58] LABS: Valproate < 12.5 mcg/mL (50.0-100.0)
--- NOTE | 2024-10-06 18:38 | PC.NURSE ---
Per Care Team, Pt may have medications on file at [facility]. [facility] closed at this time. [facility] pharmacy staff consulted to see if any information can be obtained however unable to access [place] claims per Veronica in Pharmacy. Will report off to oncoming RN for med rec with [place] in AM during hours of operation.
--- NOTE | 2024-10-06 19:56 | PC.NURSE ---
patient appears to remain asleep presently respiratons are even and unlabored patient ap[pears in no distress
[2024-10-06 22:25] VITALS: BP 98/57; PULSE 71; TEMP 36.8; O2SAT 97
--- NOTE | 2024-10-07 06:44 | PC.ADMIT ---
A bilingual, female aged 34 years [facility] following referral from [facility]. Pt appears tired, wearing johnnies and is soft-spoken. Pt is hard to understand at times and offers little on 1:1. Pt reports she is very tired and doesn't want to talk tonight. Pt declined to sign legal forms and asked to go to bed. Pt expressed willingness to talk for short time only. Pt reports anxiety and depression 10/10. Pt denies current SI/HI and says can seek out staff if needed. Pt has a history of intentional overdose in past. Pt denies AVH, but reports racing thoughts and speaking of meteors coming down and setting the world on fire like in [place]. Pt denies pain and says sleeps poorly r/t homelessness and has nightmares at times. Pt spoke of a trauma history but declined to give details. Pt spoke of stroke that was treated at [facility] in February 2024; assessment reported pt said has she not been the same since. Pt's primary focus is obtaining housing as she was evicted from her apartment in [place] on 09/13/24. Pt at [facility] from 09/15/24 to 10/03/24. Pt received long-acting IM medication prior to d/c from [facility]. Pt had made suicidal statements when she found that an expected [facility] bed was not available. Pt went willing to ED for services. Pt was cooperative but fatigued on arrival. Pt has history of numerous hospitalizations and has [facility] services and has a history of schizoaffective D/O and at baseline has mu-ism preoccupation and grandiosity. Pt reports she has a PCP and psychiatric medication provider but was unable to provide there names. Pt went to bed not long after arrival and went to sleep with out issues.
[2024-10-07 08:00] VITALS: BP 93/51; PULSE 59; RESP 16; TEMP 36.5; O2SAT 95
[2024-10-07 08:48] LABS: Estimated Average Glucose 91 mg/dL; Hemoglobin A1C 86.2169 umol/L; Hemoglobin A1c % 4.8 % (<6.0); Total Hemoglobin (HGBA1C) 3027.7299 umol/L
[2024-10-07 08:53] LABS: Cholesterol 169 mg/dL (<200); HDL Cholesterol 58 mg/dL (>40); LDL Cholesterol Calculated 99 mg/dL (<100); Triglycerides 61 mg/dL (<150)
[2024-10-07 09:09] LABS: TSH reflex Free T4 12.28 uIU/mL (0.32-4.0)
[2024-10-07 10:46] LABS: Free T4 (Free Thyroxine) 0.71 ng/dL (0.71-1.85)
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
[2024-10-07 20:00] VITALS: BP 116/63; PULSE 76; TEMP 36.6; O2SAT 97
[2024-10-07] MEDS: OLANZapine 10 MG TABLET 20 MG PO (21:48)
[2024-10-07 21:49] VITALS: BP 116/63
[2024-10-07] MEDS: HaloperidoL 5 MG TABLET PO (21:49)
[2024-10-07] MEDS: Prazosin HCL 1 MG CAPSULE PO (21:49)
[2024-10-07] MEDS: Fludrocortisone Acetate 0.1 MG TABLET PO (21:50)
[2024-10-07] MEDS: Divalproex Sodium ER 500 MG TAB.ER.24H PO (21:50)
--- NOTE | 2024-10-08 08:50 | HO.PSYCHPN ---
Subjective Subjective Date of Service: 10/08/24 Reason For Visit: SI Subjective Notes: Conditional Voluntary Interim History: met with patient. Discussed with Nursing. In bedroom. Minimal engagement. Reported they were doing okay and preferred to talk tomorrow. Denied medication concerns. Reports having a headache that is slowly responding to medications. Medication Compliance: Yes Side effects from medications: No Attending Groups: No Review of Systems Acute medical concerns: No Mental Status Exam Mental Status Exam Narrative: Pt is alert and oriented; in bed, behavior is cooperative, friendly and calm; patient is not in distress; dressed in casual attire with unkempt hair but adequate hygiene; mood is described as okay and affect a little blunted; eye contact appropriate; Speech is a little slowed; normal volume and prosody; some psychomotor retardation present; thought process is organized and goal directed; Guarded around thought content, denies any SI/HI. Positive for AH and seems to be internally preoccupied. Patients insight and judgment impaired Diagnostics Vital Signs (24Hr): Vital Signs - 24 hr 10/07/24 20:00 10/07/24 21:49 Temperature 97.8 F Pulse Rate 76 Blood Pressure 116/63 116/63 Pulse Oximetry 97 Oxygen Delivery Method Room Air BMI result Body Mass Index 25.7 Labs 10/06/24 11:02 10/06/24 11:02 Labs: Laboratory Results - last 48 hr 10/06/24 10/06/24 10/06/24 11:02 11:03 16:31 WBC 5.5 RBC 4.00 L Hgb 11.3 L Hct 35.4 L MCV 88.5 MCH 28.3 MCHC 31.9 RDW 13.5 Plt Count 191 MPV 9.8 Immature Gran % (Auto) 0.5 H Neut % (Auto) 65.2 Lymph % (Auto) 21.6 [place] % (Auto) 12.2 H Eos % (Auto) 0.0 Baso % (Auto) 0.5 Lymph # (Auto) 1.2 [place] # (Auto) 0.7 Eos # (Auto) 0.0 Baso # (Auto) 0.0 Abs Immat Gran (auto) 0.03 Absolute Neuts (auto) 3.6 Absolute Nucleated RBC 0.000 Nucleated RBC % (auto) 0.0 Sodium 139 Potassium 4.0 Chloride 109 H Carbon Dioxide 27 Anion Gap 7 L BUN 13 Creatinine 0.64 Estim Creat Clear Calc 118.5 Estimated GFR > 60 Random Glucose 74 Estimat Average Glucose Hemoglobin A1c % Calcium 8.4 Total Bilirubin 0.1 AST 18 ALT 10 Alkaline Phosphatase 49 Total Protein 6.7 Albumin 3.7 Triglycerides Cholesterol LDL Cholesterol, Calc HDL Cholesterol TSH Free T4 Urine Color Yellow Urine Appearance Clear Urine pH 6.0 Ur Specific [place] <= 1.005 Urine Protein Negative Urine Glucose (UA) Negative Urine Ketones Negative Urine Blood Negative Urine Nitrite Negative Ur Leukocyte Esterase Trace H Urine RBC 0-2 Urine WBC 0-5 Ur Squamous Epith Cells 3-5 Urine Bacteria None Seen Hyaline Casts 0-2 Urine Test NEGATIVE Salicylates < 5.0 L Urine Opiates Screen Not Detected Ur Buprenorphine Scrn Not Detected Ur Oxycodone Screen Not Detected Urine Methadone Screen Not Detected Urine Fentanyl Screen Not Detected Acetaminophen < 3 Ur Barbiturates Screen Not Detected Valproic Acid < 12.5 L Ur Phencyclidine Scrn Not Detected Ur Amphetamines Screen Not Detected U Benzodiazepines Scrn Not Detected Urine Cocaine Screen Not Detected U Marijuana (THC) Screen Not Detected Ethyl Alcohol < 10 COVID-19 ([facility]) Negative COVID-19 Clin Com See Note 10/07/24 10/07/24 08:20 08:21 WBC RBC Hgb Hct MCV MCH MCHC RDW Plt Count MPV Immature Gran % (Auto) Neut % (Auto) Lymph % (Auto) [place] % (Auto) Eos % (Auto) Baso % (Auto) Lymph # (Auto) [place] # (Auto) Eos # (Auto) Baso # (Auto) Abs Immat Gran (auto) Absolute Neuts (auto) Absolute Nucleated RBC Nucleated RBC % (auto) Sodium Potassium Chloride Carbon Dioxide Anion Gap BUN Creatinine Estim Creat Clear Calc Estimated GFR Random Glucose Estimat Average Glucose 91 Hemoglobin A1c % 4.8 Calcium Total Bilirubin AST ALT Alkaline Phosphatase Total Protein Albumin Triglycerides 61 Cholesterol 169 LDL Cholesterol, Calc 99 HDL Cholesterol 58 TSH 12.28 H Free T4 0.71 Urine Color Urine Appearance Urine pH Ur Specific [place] Urine Protein Urine Glucose (UA) Urine Ketones Urine Blood Urine Nitrite Ur Leukocyte Esterase Urine RBC Urine WBC Ur Squamous Epith Cells Urine Bacteria Hyaline Casts Urine Test Salicylates Urine Opiates Screen Ur Buprenorphine Scrn Ur Oxycodone Screen Urine Methadone Screen Urine Fentanyl Screen Acetaminophen Ur Barbiturates Screen Valproic Acid Ur Phencyclidine Scrn Ur Amphetamines Screen U Benzodiazepines Scrn Urine Cocaine Screen U Marijuana (THC) Screen Ethyl Alcohol COVID-19 ([facility]) COVID-[address] [facility] Medications Medications Current Medications Acetaminophen (Acetaminophen 325 Mg Tablet) 650 mg PO Q6H PRN PRN Reason: Headache/Pain Mild Scale (1-3) Albuterol Sulfate (Albuterol Sulfate 90 Mcg 8 Gm Inhaler) 2 puff INHALE RQ4H PRN PRN Reason: sob Divalproex Sodium (Divalproex Sodium Er 500 Mg Tab.Er.24h) 500 mg PO BEDTIME [facility] Last Admin: 10/07/24 21:50 Dose: 500 mg Famotidine (Famotidine 20 Mg Tablet) 20 mg PO BID PRN PRN Reason: Heartburn Fludrocortisone Acetate (Fludrocortisone Acetate 0.1 Mg Tablet) 0.1 mg PO BID [facility] Last Admin: 10/07/24 21:50 Dose: 0.1 mg Haloperidol (Haloperidol 5 Mg Tablet) 5 mg PO BID [facility] Last Admin: 10/07/24 21:49 Dose: 5 mg Hydroxyzine HCl (Hydroxyzine Hcl 25 Mg Tablet) 25 mg PO Q6H PRN PRN Reason: Anxiety Levothyroxine Sodium (Levothyroxine Sodium 25 Mcg Tablet) 20 mcg PO DAILY@0600 [facility] Magnesium Hydroxide (Milk Of Magnesia 30 Ml Oral.Susp) 30 ml PO DAILY PRN PRN Reason: Constipation Midodrine (Midodrine Hcl 5 Mg Tablet) 5 mg PO TIDWM YOSELIN Nicotine Polacrilex (Nicotine Polacrilex 2 Mg Gum) 4 mg BUCCAL Q2H PRN PRN Reason: Nicotine Cravings Olanzapine (Olanzapine 5 Mg Tablet) 5 mg PO TID PRN PRN Reason: agitation Olanzapine (Olanzapine 10 Mg Tablet) 20 mg PO BEDTIME [facility] Last Admin: 10/07/24 21:48 Dose: 20 mg Prazosin HCl (Prazosin Hcl 1 Mg Capsule) 1 mg PO BEDTIME YOSELIN; Protocol Last Admin: 10/07/24 21:49 Dose: 1 mg Trazodone HCl (Trazodone Hcl 50 Mg Tablet) 50 mg PO BEDTIME MRX1 PRN PRN Reason: Insomnia Allergies Allergies Allergy/AdvReac Type Severity Reaction Status Date / Time risperidone Allergy Unknown Verified 10/06/24 10:29 Assessment & Plan Assessment & Plan (1) Schizoaffective disorder, bipolar type: Status: Acute Code(s): F25.0 - Schizoaffective disorder, bipolar type (2) Cocaine use disorder, moderate, dependence: Status: Acute Code(s): F14.20 - Cocaine dependence, uncomplicated (3) PTSD (post-traumatic stress disorder): Status: Acute Code(s): F43.10 - Post-traumatic stress disorder, unspecified (4) Homeless: Status: Acute Code(s): Z59.00 - Homelessness unspecified Plan HPI: Patient is a 34-year-old female with history of schizoaffective disorder, bipolar type, PTSD: cocaine use disorder, Graves disease (s/p radioactive ablation), hypothyroidism, adrenal insufficiency, GERD, asthma who presents for disorganized behavior, delusions and AH and with comments about SI. Patient reports that she was never actually suicidal but just said she was in order to get admitted. 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 Her goal is to get her GED so she can go to [place] and help stop the pending wars. Otherwise she mostly wants help getting housing. Patient acknowledges that she uses cocaine but vague on amount. Alludes to being off her medications until she arrived to the hospital. She denies any SI or HI; acknowledges AH as mentioned above. Pharmacy Account Director reviewed medications provided by hospital with which patient agrees with continuing. Formulation/clinical reasoning: Patient has history of schizoaffective disorder, exacerbated by cocaine abuse and poor medication adherence. Patient has [facility] services. Currently is with paranoid/grandiose delusionary thinking; She has been off her medications and is somewhat confused and perhaps limited in her ability to manage life tasks. Continuing medications that were just restarted in the ED. Will reach out to [facility] worker for collateral Plan: CV Q 15 minute checks Home medications: Haldol Decanoate 100 mg RODRIGUEZ Q monthly last received on 09/27/24 Haloperidol 5 mg b.i.d. Olanzapine 20 mg q.h.s. Depakote ER 500 mg q.h.s.? (normally takes 250 mg IR b.i.d.) Prazosin 1 mg q.h.s.; normally takes 2 mg Trazodone 50 mg p.r.n. q.h.s. Levothyroxine 20 mcg daily Famotidine 20 mg b.i.d. p.r.n. Fludrocortisone 0.1 mg b.i.d. Midodrine 5 mg t.i.d. Albuterol ?prn Did NOT start: HydroCORTisone 10 mg BID ?? See Instructions , Take 20 mg in AM and 10 mg at 3 pm on 09/13, take 15 mg in AM and 10 mg at 3 pm on 09/14, 09/15, 09/16, take 10 mg in AM and at 3 pm after that 10/08/24: no changes to current plan. Reason for continued inpatient stay Substantial Risk for: inability to function Time Spent With Patient Time: Total time managing care of this patient today ____ minutes.
[2024-10-08] MEDS: Fludrocortisone Acetate 0.1 MG TABLET PO ×2 (10:24→20:51)
[2024-10-08] MEDS: HaloperidoL 5 MG TABLET PO ×2 (10:24→20:45)
[2024-10-08 14:21] VITALS: BP 112/80
[2024-10-08] MEDS: Midodrine HCl 5 MG TABLET PO ×2 (14:21→17:47)
[2024-10-08 17:47] VITALS: BP 100/64
[2024-10-08] MEDS: Nicotine Polacrilex 2 MG GUM 4 MG BUCCAL (19:06)
[2024-10-08 20:00] VITALS: BP 120/66; PULSE 79; TEMP 36.4; O2SAT 99
[2024-10-08] MEDS: hydrOXYzine HCL 25 MG TABLET PO (20:50)
[2024-10-08] MEDS: OLANZapine 10 MG TABLET 20 MG PO (20:52)
[2024-10-08] MEDS: Divalproex Sodium ER 500 MG TAB.ER.24H PO (20:52)
[2024-10-08 20:57] VITALS: BP 120/66
[2024-10-08] MEDS: Prazosin HCL 1 MG CAPSULE PO (20:57)
[2024-10-08] MEDS: traZODone HCL 50 MG TABLET PO ×2 (20:59→22:25)
[2024-10-08] MEDS: OLANZapine 5 MG TABLET PO (22:25)
[2024-10-08] MEDS: Acetaminophen 325 MG TABLET 650 MG PO (23:39)
[2024-10-09] MEDS: Levothyroxine Sodium 25 MCG TABLET PO (06:00)
[2024-10-09 09:22] VITALS: BP 96/52
[2024-10-09] MEDS: Midodrine HCl 5 MG TABLET PO ×3 (09:22→16:08)
[2024-10-09] MEDS: HaloperidoL 5 MG TABLET PO ×2 (09:22→20:05)
[2024-10-09] MEDS: Fludrocortisone Acetate 0.1 MG TABLET PO ×2 (09:22→20:04)
[2024-10-09 09:27] VITALS: BP 93/52; PULSE 95; RESP 20; TEMP 36.6; O2SAT 95
--- NOTE | 2024-10-09 09:37 | HO.PSYCHPN ---
Subjective Subjective Date of Service: 10/09/24 Reason For Visit: SI Interim History: met with patient. Discussed with Nursing. In milieu today. Eager for support around housing and wants to be clear with team not being ready for discharge into the community- housing cited as main barrier. Wants to work with [facility] and tx team. Ongoing talk about being a prophet. Sleep and appetite OK. Feels safe with staff. No SI. Denied medication concerns. Reports having a headache that is slowly responding to medications. Medication Compliance: Yes Side effects from medications: No Attending Groups: Intermittent Review of Systems Acute medical concerns: No Review of Systems Review of Systems nothing acute Mental Status Exam Mental Status Exam Narrative: Pt is alert and oriented; in milieu, behavior is cooperative, friendly and calm; patient is not in distress; dressed in casual attire with unkempt hair but adequate hygiene; mood is described as okay and affect a little blunted; eye contact appropriate; Speech is a little slowed; normal volume and prosody; some psychomotor retardation present; thought process is organized and goal directed; Voodoo delusions. Denies any SI/HI. Positive for AH (God) and seems to be internally preoccupied. Patients insight and judgment impaired Diagnostics Vital Signs (24Hr): Vital Signs - 24 hr 10/08/24 14:21 10/08/24 17:47 10/08/24 20:00 Temperature 97.6 F Pulse Rate 79 Respiratory Rate Blood Pressure 112/80 100/64 120/66 Pulse Oximetry 99 Oxygen Delivery Method Room Air 10/08/24 20:57 10/09/24 09:22 10/09/24 09:27 Temperature 98 F Pulse Rate 95 Respiratory Rate 20 Blood Pressure 120/66 96/52 L 93/52 L Pulse Oximetry 95 Oxygen Delivery Method Room Air BMI result Body Mass Index 25.7 Labs 10/06/24 11:02 10/06/24 11:02 Labs: Laboratory Results - last 48 hr 10/07/24 08:20 Free T4 0.71 Medications Medications Current Medications Acetaminophen (Acetaminophen 325 Mg Tablet) 650 mg PO Q6H PRN PRN Reason: Headache/Pain Mild Scale (1-3) Last Admin: 10/08/24 23:39 Dose: 650 mg Albuterol Sulfate (Albuterol Sulfate 90 Mcg 8 Gm Inhaler) 2 puff INHALE RQ4H PRN PRN Reason: sob Divalproex Sodium (Divalproex Sodium Er 500 Mg Tab.Er.24h) 500 mg PO BEDTIME YOSELIN Last Admin: 10/08/24 20:52 Dose: 500 mg Famotidine (Famotidine 20 Mg Tablet) 20 mg PO BID PRN PRN Reason: Heartburn Fludrocortisone Acetate (Fludrocortisone Acetate 0.1 Mg Tablet) 0.1 mg PO BID [facility] Last Admin: 10/09/24 09:22 Dose: 0.1 mg Haloperidol (Haloperidol 5 Mg Tablet) 5 mg PO BID [facility] Last Admin: 10/09/24 09:22 Dose: 5 mg Hydroxyzine HCl (Hydroxyzine Hcl 25 Mg Tablet) 25 mg PO Q6H PRN PRN Reason: Anxiety Last Admin: 10/08/24 20:50 Dose: 25 mg Levothyroxine Sodium (Levothyroxine Sodium 25 Mcg Tablet) 25 mcg PO DAILY@0600 [facility] Last Admin: 10/09/24 06:00 Dose: 25 mcg Magnesium Hydroxide (Milk Of Magnesia 30 Ml Oral.Susp) 30 ml PO DAILY PRN PRN Reason: Constipation Midodrine (Midodrine Hcl 5 Mg Tablet) 5 mg PO TIDWM [facility] Last Admin: 10/09/24 09:22 Dose: 5 mg Nicotine Polacrilex (Nicotine Polacrilex 2 Mg Gum) 4 mg BUCCAL Q2H PRN PRN Reason: Nicotine Cravings Last Admin: 10/08/24 19:06 Dose: 4 mg Olanzapine (Olanzapine 5 Mg Tablet) 5 mg PO TID PRN PRN Reason: agitation Last Admin: 10/08/24 22:25 Dose: 5 mg Olanzapine (Olanzapine 10 Mg Tablet) 20 mg PO BEDTIME YOSELIN Last Admin: 10/08/24 20:52 Dose: 20 mg Prazosin HCl (Prazosin Hcl 1 Mg Capsule) 1 mg PO BEDTIME [facility]; Protocol Last Admin: 10/08/24 20:57 Dose: 1 mg Trazodone HCl (Trazodone Hcl 50 Mg Tablet) 50 mg PO BEDTIME MRX1 PRN PRN Reason: Insomnia Last Admin: 10/08/24 22:25 Dose: 50 mg Allergies Allergies Allergy/AdvReac Type Severity Reaction Status Date / Time risperidone Allergy Unknown Verified 10/06/24 10:29 Assessment & Plan Assessment & Plan (1) Schizoaffective disorder, bipolar type: Status: Acute Code(s): F25.0 - Schizoaffective disorder, bipolar type (2) Cocaine use disorder, moderate, dependence: Status: Acute Code(s): F14.20 - Cocaine dependence, uncomplicated (3) PTSD (post-traumatic stress disorder): Status: Acute Code(s): F43.10 - Post-traumatic stress disorder, unspecified (4) Homeless: Status: Acute Code(s): Z59.00 - Homelessness unspecified Plan HPI: Patient is a 34-year-old female with history of schizoaffective disorder, bipolar type, PTSD: cocaine use disorder, Graves disease (s/p radioactive ablation), hypothyroidism, adrenal insufficiency, GERD, asthma who presents for disorganized behavior, delusions and AH and with comments about SI. Patient reports that she was never actually suicidal but just said she was in order to get admitted. 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 Her goal is to get her GED so she can go to [place] and help stop the pending wars. Otherwise she mostly wants help getting housing. Patient acknowledges that she uses cocaine but vague on amount. Alludes to being off her medications until she arrived to the hospital. She denies any SI or HI; acknowledges AH as mentioned above. Director Underwriter Sales reviewed medications provided by hospital with which patient agrees with continuing. Formulation/clinical reasoning: Patient has history of schizoaffective disorder, exacerbated by cocaine abuse and poor medication adherence. Patient has [facility] services. Currently is with paranoid/grandiose delusionary thinking; She has been off her medications and is somewhat confused and perhaps limited in her ability to manage life tasks. Continuing medications that were just restarted in the ED. Will reach out to [facility] worker for collateral Plan: CV Q 15 minute checks Home medications: Haldol Decanoate 100 mg RODRIGUEZ Q monthly last received on 09/27/24 Haloperidol 5 mg b.i.d. Olanzapine 20 mg q.h.s. Depakote ER 500 mg q.h.s.? (normally takes 250 mg IR b.i.d.) Prazosin 1 mg q.h.s.; normally takes 2 mg Trazodone 50 mg p.r.n. q.h.s. Levothyroxine 20 mcg daily Famotidine 20 mg b.i.d. p.r.n. Fludrocortisone 0.1 mg b.i.d. Midodrine 5 mg t.i.d. Albuterol ?prn Did NOT start: HydroCORTisone 10 mg BID ?? See Instructions , Take 20 mg in AM and 10 mg at 3 pm on 09/13, take 15 mg in AM and 10 mg at 3 pm on 09/14, 09/15, 09/16, take 10 mg in AM and at 3 pm after that 10/08/24: no changes to current plan. 10/09: no changesas per primary team Reason for continued inpatient stay Substantial Risk for: inability to function Time Spent With Patient Time: Total time managing care of this patient today ____ minutes.
[2024-10-09] MEDS: Albuterol Sulfate 90 MCG 8 GM INHALER 2 PUFF INHALE ×3 (10:37→20:03)
[2024-10-09] MEDS: hydrOXYzine HCL 25 MG TABLET PO (10:40)
[2024-10-09] MEDS: Acetaminophen 325 MG TABLET 650 MG PO (10:56)
[2024-10-09 12:52] VITALS: BP 122/63
[2024-10-09 14:46] VITALS: BP 102/61; PULSE 77; RESP 18; O2SAT 97
--- NOTE | 2024-10-09 15:30 | PC.NURSE ---
There has been a couple of times where Denice has reported having some SOB/fatigue associated with breathing and she requested use of her inhaler as she has asthma. She reports this never happens to her. Shortly after using inhaler, reassessed and reported feeling like her breathing was easier. Lung sounds CTA, VSS. Will continue to monitor.
[2024-10-09 16:08] VITALS: BP 107/61
[2024-10-09 20:00] VITALS: BP 113/67; PULSE 73; RESP 16; TEMP 36.9; O2SAT 99
[2024-10-09] MEDS: OLANZapine 10 MG TABLET 20 MG PO (20:04)
[2024-10-09] MEDS: Prazosin HCL 1 MG CAPSULE PO (20:04)
[2024-10-09] MEDS: Divalproex Sodium ER 500 MG TAB.ER.24H PO (20:04)
[2024-10-09] MEDS: traZODone HCL 50 MG TABLET PO (20:58)
[2024-10-10] MEDS: Levothyroxine Sodium 25 MCG TABLET PO (06:44)
[2024-10-10 12:41] VITALS: BP 92/52; PULSE 60; RESP 14; TEMP 36.5; O2SAT 97
[2024-10-10] MEDS: Fludrocortisone Acetate 0.1 MG TABLET PO ×2 (12:44→20:39)
[2024-10-10] MEDS: HaloperidoL 5 MG TABLET PO ×2 (12:44→20:39)
[2024-10-10 13:41] LABS: Influenza A PCR NEGATIVE (Negative); Influenza B PCR NEGATIVE (Negative); Resp Syncy Virus RNA Qual PCR NEGATIVE (Negative); SARS COV2 PCR INHOUSE NEGATIVE (Negative)
--- NOTE | 2024-10-10 15:16 | HO.PSYCHPN ---
Subjective Subjective Date of Service: 10/10/24 Reason For Visit: SI Interim History: Pt reports feeling tired, with low energy today. She has been sleeping most of the day. She met with tw later in the afternoon. She reports eviction on 09/15 and needing assistance with housing. Denies current sx, I just need help finding a place to live. Medication Compliance: Yes Side effects from medications: No Attending Groups: No Review of Systems Acute medical concerns: No Medical Review of Systems: unchanged Review of Systems Review of Systems Anergy, tired, sleeping more today Mental Status Exam Mental Status Exam Patient Appearance: Fatigued Patient Orientation: Person, Place, Time and Situation Level of Consciousness: Alert Patient Behavior: Talkative and Good Eye Contact Mood Description: Anxious Affect Description: Anxious Patient Cognition Impaired: No Ability to Follow Directions: Good Speech Pattern: Spontaneous Speech Memory Description: Episodic Impaired Hallucinations: None Delusions: Grandiose (She tells tw she is the Danieiah) Thought Process: Rumination Thought Content: positive for Perseveration Depressive Symptoms: Increased Anxiety, Increased Fatigue and Loss of Energy Judgement: Fair Diagnostics Vital Signs (24Hr): Vital Signs - 24 hr 10/09/24 16:08 10/09/24 20:00 10/10/24 12:41 Temperature 98.4 F 97.7 F Pulse Rate 73 60 Respiratory Rate 16 14 Blood Pressure 107/61 113/67 92/52 L Pulse Oximetry 99 97 Oxygen Delivery Method Room Air Room Air BMI result Body Mass Index 25.7 Labs 10/06/24 11:02 10/06/24 11:02 Labs: Laboratory Results - last 48 hr 10/10/24 12:56 Influenza Type A (PCR) NEGATIVE Influenza Type B (PCR) NEGATIVE RSV RNA Qual (PCR) NEGATIVE SARS-CoV-2 RNA (RT-PCR) NEGATIVE Medications Medications Current Medications Acetaminophen (Acetaminophen 325 Mg Tablet) 650 mg PO Q6H PRN PRN Reason: Headache/Pain Mild Scale (1-3) Last Admin: 10/09/24 10:56 Dose: 650 mg Albuterol Sulfate (Albuterol Sulfate 90 Mcg 8 Gm Inhaler) 2 puff INHALE RQ4H PRN PRN Reason: sob Last Admin: 10/09/24 20:03 Dose: 2 puff Divalproex Sodium (Divalproex Sodium Er 500 Mg Tab.Er.24h) 500 mg PO BEDTIME YOSELIN Last Admin: 10/09/24 20:04 Dose: 500 mg Famotidine (Famotidine 20 Mg Tablet) 20 mg PO BID PRN PRN Reason: Heartburn Fludrocortisone Acetate (Fludrocortisone Acetate 0.1 Mg Tablet) 0.1 mg PO BID [facility] Last Admin: 10/10/24 12:44 Dose: 0.1 mg Haloperidol (Haloperidol 5 Mg Tablet) 5 mg PO BID Y[facility] Last Admin: 10/10/24 12:44 Dose: 5 mg Hydroxyzine HCl (Hydroxyzine Hcl 25 Mg Tablet) 25 mg PO Q6H PRN PRN Reason: Anxiety Last Admin: 10/09/24 10:40 Dose: 25 mg Levothyroxine Sodium (Levothyroxine Sodium 25 Mcg Tablet) 25 mcg PO DAILY@0600 [facility] Last Admin: 10/10/24 06:44 Dose: 25 mcg Magnesium Hydroxide (Milk Of Magnesia 30 Ml Oral.Susp) 30 ml PO DAILY PRN PRN Reason: Constipation Midodrine (Midodrine Hcl 5 Mg Tablet) 5 mg PO TIDWM [facility] Last Admin: 10/10/24 12:45 Dose: Not Given Nicotine Polacrilex (Nicotine Polacrilex 2 Mg Gum) 4 mg BUCCAL Q2H PRN PRN Reason: Nicotine Cravings Last Admin: 10/08/24 19:06 Dose: 4 mg Olanzapine (Olanzapine 5 Mg Tablet) 5 mg PO TID PRN PRN Reason: agitation Last Admin: 10/08/24 22:25 Dose: 5 mg Olanzapine (Olanzapine 10 Mg Tablet) 20 mg PO BEDTIME YO[facility] Last Admin: 10/09/24 20:04 Dose: 20 mg Prazosin HCl (Prazosin Hcl 1 Mg Capsule) 1 mg PO BEDTIME [facility]; Protocol Last Admin: 10/09/24 20:04 Dose: 1 mg Trazodone HCl (Trazodone Hcl 50 Mg Tablet) 50 mg PO BEDTIME MRX1 PRN PRN Reason: Insomnia Last Admin: 10/09/24 20:58 Dose: 50 mg Allergies Allergies Allergy/AdvReac Type Severity Reaction Status Date / Time risperidone Allergy Unknown Verified 10/06/24 10:29 Assessment & Plan Assessment & Plan (1) Schizoaffective disorder, bipolar type: Status: Acute Code(s): F25.0 - Schizoaffective disorder, bipolar type (2) Cocaine use disorder, moderate, dependence: Status: Acute Code(s): F14.20 - Cocaine dependence, uncomplicated (3) PTSD (post-traumatic stress disorder): Status: Acute Code(s): F43.10 - Post-traumatic stress disorder, unspecified (4) Homeless: Status: Acute Code(s): Z59.00 - Homelessness unspecified Plan HPI: Patient is a 34-year-old female with history of schizoaffective disorder, bipolar type, PTSD: cocaine use disorder, Graves disease (s/p radioactive ablation), hypothyroidism, adrenal insufficiency, GERD, asthma who presents for disorganized behavior, delusions and AH and with comments about SI. Patient reports that she was never actually suicidal but just said she was in order to get admitted. 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 Her goal is to get her GED so she can go to [place] and help stop the pending wars. Otherwise she mostly wants help getting housing. Patient acknowledges that she uses cocaine but vague on amount. Alludes to being off her medications until she arrived to the hospital. She denies any SI or HI; acknowledges AH as mentioned above. Sports Trainer reviewed medications provided by hospital with which patient agrees with continuing. Formulation/clinical reasoning: Patient has history of schizoaffective disorder, exacerbated by cocaine abuse and poor medication adherence. Patient has [facility] services. Currently is with paranoid/grandiose delusionary thinking; She has been off her medications and is somewhat confused and perhaps limited in her ability to manage life tasks. Continuing medications that were just restarted in the ED. Will reach out to [facility] worker for collateral Plan: CV Q 15 minute checks Home medications: Haldol Decanoate 100 mg RODRIGUEZ Q monthly last received on 09/27/24 Haloperidol 5 mg b.i.d. Olanzapine 20 mg q.h.s. Depakote ER 500 mg q.h.s.? (normally takes 250 mg IR b.i.d.) Prazosin 1 mg q.h.s.; normally takes 2 mg Trazodone 50 mg p.r.n. q.h.s. Levothyroxine 20 mcg daily Famotidine 20 mg b.i.d. p.r.n. Fludrocortisone 0.1 mg b.i.d. Midodrine 5 mg t.i.d. Albuterol ?prn Did NOT start: HydroCORTisone 10 mg BID ?? See Instructions , Take 20 mg in AM and 10 mg at 3 pm on 09/13, take 15 mg in AM and 10 mg at 3 pm on 09/14, 09/15, 09/16, take 10 mg in AM and at 3 pm after that 10/08/24: no changes to current plan. 10/09: no changesas per primary team 10/10: Continue tx Reason for continued inpatient stay Substantial Risk for: rapid decompensation Time Spent With Patient Time: Total time managing care of this patient today ____ minutes.
[2024-10-10 16:07] VITALS: BP 109/54
[2024-10-10] MEDS: Midodrine HCl 5 MG TABLET PO (16:07)
[2024-10-10 20:00] VITALS: BP 110/51; PULSE 73; TEMP 36.9; O2SAT 99
[2024-10-10] MEDS: OLANZapine 5 MG TABLET PO (20:38)
[2024-10-10] MEDS: traZODone HCL 50 MG TABLET PO ×2 (20:38→22:50)
[2024-10-10] MEDS: Prazosin HCL 1 MG CAPSULE PO (20:38)
[2024-10-10] MEDS: OLANZapine 10 MG TABLET 20 MG PO (20:38)
[2024-10-10] MEDS: Divalproex Sodium ER 500 MG TAB.ER.24H PO (20:38)
[2024-10-10] MEDS: Acetaminophen 325 MG TABLET 650 MG PO (22:50)
[2024-10-10] MEDS: hydrOXYzine HCL 25 MG TABLET PO (22:50)
--- NOTE | 2024-10-11 06:30 | PC.NURSE ---
Patient refused Levothyroxine this morning.
[2024-10-11 09:30] VITALS: BP 91/53; PULSE 56; RESP 16; TEMP 36.3; O2SAT 96
[2024-10-11] MEDS: Fludrocortisone Acetate 0.1 MG TABLET PO ×2 (10:23→20:55)
[2024-10-11] MEDS: Levothyroxine Sodium 25 MCG TABLET PO (10:23)
[2024-10-11] MEDS: HaloperidoL 5 MG TABLET PO ×2 (10:24→20:55)
--- NOTE | 2024-10-11 10:26 | P.PNPSI_ITS ---
Subjective Subjective Date of Service: 10/11/24 Reason For Visit: SI Interim History: Napping today, poorly engaged. Discussed midodrine parameters with pharmacy- currently no policy however they will look into this, at this time will set a BP parameter of 130/90 for holding. DM sent pt's list of medications, changes were addressed. Will discuss Haldol Dec increase with pt to 150 mg, last given 08/12/24?? and how to proceed. Pt looking for housing assistance. Probably [facility] admit with [facility] assist to follow. Medication Compliance: Yes Side effects from medications: No Attending Groups: No Review of Systems Acute medical concerns: No Medical Review of Systems: unchanged Review of Systems Review of Systems pt denies, I need a place to live. Mental Status Exam Mental Status Exam Patient Appearance: Fatigued Patient Orientation: Person, Place and Situation Level of Consciousness: Sedated and Alert Patient Behavior: Guarded, Cooperative, Suspicious, Anxious, Fearful, Avoidant, Fatigued, Distractible and Poor Eye Contact Mood Description: Withdrawn Affect Description: Withdrawn Patient Cognition Impaired: No Ability to Follow Directions: Fair Speech Pattern: Spontaneous Speech Memory Description: Episodic Impaired Delusions: Present Thought Process: Rumination Thought Content: positive for Perseveration and positive for Suicidal Ideation (denied) Depressive Symptoms: Increased Anxiety, Unhappiness, Increased Fatigue and Loss of Energy Judgement: Fair Diagnostics Vital Signs (24Hr): Vital Signs - 24 hr 10/10/24 12:41 10/10/24 16:07 10/10/24 20:00 Temperature 97.7 F 98.4 F Pulse Rate 60 73 Respiratory Rate 14 Blood Pressure 92/52 L 109/54 L 110/51 L Pulse Oximetry 97 99 Oxygen Delivery Method Room Air Room Air BMI result Body Mass Index 25.7 Labs 10/06/24 11:02 10/06/24 11:02 Labs: Laboratory Results - last 48 hr 10/10/24 12:56 Influenza Type A (PCR) NEGATIVE Influenza Type B (PCR) NEGATIVE RSV RNA Qual (PCR) NEGATIVE SARS-CoV-2 RNA (RT-PCR) NEGATIVE Medications Medications Current Medications Acetaminophen (Acetaminophen 325 Mg Tablet) 650 mg PO Q6H PRN PRN Reason: Headache/Pain Mild Scale (1-3) Last Admin: 10/10/24 22:50 Dose: 650 mg Albuterol Sulfate (Albuterol Sulfate 90 Mcg 8 Gm Inhaler) 2 puff INHALE RQ4H PRN PRN Reason: sob Last Admin: 10/09/24 20:03 Dose: 2 puff Divalproex Sodium (Divalproex Sodium Er 500 Mg Tab.Er.24h) 500 mg PO BEDTIME [facility] Last Admin: 10/10/24 20:38 Dose: 500 mg Famotidine (Famotidine 20 Mg Tablet) 20 mg PO BID PRN PRN Reason: Heartburn Fludrocortisone Acetate (Fludrocortisone Acetate 0.1 Mg Tablet) 0.1 mg PO BID [facility] Last Admin: 10/10/24 20:39 Dose: 0.1 mg Haloperidol (Haloperidol 5 Mg Tablet) 5 mg PO BID [facility] Last Admin: 10/10/24 20:39 Dose: 5 mg Hydroxyzine HCl (Hydroxyzine Hcl 25 Mg Tablet) 25 mg PO Q6H PRN PRN Reason: Anxiety Last Admin: 10/10/24 22:50 Dose: 25 mg Levothyroxine Sodium (Levothyroxine Sodium 25 Mcg Tablet) 25 mcg PO DAILY@0600 [facility] Last Admin: 10/10/24 06:44 Dose: 25 mcg Magnesium Hydroxide (Milk Of Magnesia 30 Ml Oral.Susp) 30 ml PO DAILY PRN PRN Reason: Constipation Midodrine (Midodrine Hcl 5 Mg Tablet) 5 mg PO TIDWM [facility] Last Admin: 10/10/24 16:07 Dose: 5 mg Nicotine Polacrilex (Nicotine Polacrilex 2 Mg Gum) 4 mg BUCCAL Q2H PRN PRN Reason: Nicotine Cravings Last Admin: 10/08/24 19:06 Dose: 4 mg Olanzapine (Olanzapine 5 Mg Tablet) 5 mg PO TID PRN PRN Reason: agitation Last Admin: 10/10/24 20:38 Dose: 5 mg Olanzapine (Olanzapine 10 Mg Tablet) 20 mg PO BEDTIME [facility] Last Admin: 10/10/24 20:38 Dose: 20 mg Prazosin HCl (Prazosin Hcl 1 Mg Capsule) 1 mg PO BEDTIME [facility]; Protocol Last Admin: 10/10/24 20:38 Dose: 1 mg Trazodone HCl (Trazodone Hcl 50 Mg Tablet) 50 mg PO BEDTIME MRX1 PRN PRN Reason: Insomnia Last Admin: 10/10/24 22:50 Dose: 50 mg Allergies Allergies Allergy/AdvReac Type Severity Reaction Status Date / Time risperidone Allergy Unknown Verified 10/06/24 10:29 Assessment & Plan Assessment & Plan (1) Schizoaffective disorder, bipolar type: Status: Acute Code(s): F25.0 - Schizoaffective disorder, bipolar type (2) Cocaine use disorder, moderate, dependence: Status: Acute Code(s): F14.20 - Cocaine dependence, uncomplicated (3) PTSD (post-traumatic stress disorder): Status: Acute Code(s): F43.10 - Post-traumatic stress disorder, unspecified (4) Homeless: Status: Acute Code(s): Z59.00 - Homelessness unspecified Plan HPI: Patient is a 34-year-old female with history of schizoaffective disorder, bipolar type, PTSD: cocaine use disorder, Graves disease (s/p radioactive ablation), hypothyroidism, adrenal insufficiency, GERD, asthma who presents for disorganized behavior, delusions and AH and with comments about SI. Patient reports that she was never actually suicidal but just said she was in order to get admitted. 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 Her goal is to get her GED so she can go to [place] and help stop the pending wars. Otherwise she mostly wants help getting housing. Patient acknowledges that she uses cocaine but vague on amount. Alludes to being off her medications until she arrived to the hospital. She denies any SI or HI; acknowledges AH as mentioned above. Trade Facilitator reviewed medications provided by hospital with which patient agrees with continuing. Formulation/clinical reasoning: Patient has history of schizoaffective disorder, exacerbated by cocaine abuse and poor medication adherence. Patient has [facility] services. Currently is with paranoid/grandiose delusionary thinking; She has been off her medications and is somewhat confused and perhaps limited in her ability to manage life tasks. Continuing medications that were just restarted in the ED. Will reach out to [facility] worker for collateral Plan: CV Q 15 minute checks Home medications: Haldol Decanoate 100 mg RODRIGUEZ Q monthly last received on 09/27/24 Haloperidol 5 mg b.i.d. Olanzapine 20 mg q.h.s. Depakote ER 500 mg q.h.s.? (normally takes 250 mg IR b.i.d.) Prazosin 1 mg q.h.s.; normally takes 2 mg Trazodone 50 mg p.r.n. q.h.s. Levothyroxine 20 mcg daily Famotidine 20 mg b.i.d. p.r.n. Fludrocortisone 0.1 mg b.i.d. Midodrine 5 mg t.i.d. Albuterol ?prn Did NOT start: HydroCORTisone 10 mg BID ?? See Instructions , Take 20 mg in AM and 10 mg at 3 pm on 09/13, take 15 mg in AM and 10 mg at 3 pm on 09/14, 09/15, 09/16, take 10 mg in AM and at 3 pm after that 10/08/24: no changes to current plan. 10/09: no changesas per primary team 10/11: [facility] provided med list. Depakote 1250 mg-increased Haldol Dec 150 mg-hold until we have further info Hydrocortisone-initially ordered, then DC'ed due to conflicts in directions. Levothyroxine 112 mcg daily-increased Melatonin 3 mg hs, added Midodrine-dosage not changed Olanzapine continued Prazosin continued Attempting to clarify Haldol Dec, Hydrocortisone at this time. Reason for continued inpatient stay Substantial Risk for: rapid decompensation and med/psych decompensation Time Spent With Patient Time: Total time managing care of this patient today ____ minutes.
[2024-10-11 10:27] VITALS: BP 91/53
[2024-10-11 13:17] VITALS: BP 98/65
[2024-10-11] MEDS: Midodrine HCl 5 MG TABLET PO ×2 (13:17→17:50)
[2024-10-11 17:50] VITALS: BP 77/43
[2024-10-11 18:14] VITALS: BP 77/43; PULSE 64
[2024-10-11 19:58] VITALS: BP 168/63; PULSE 56; RESP 18; TEMP 36.4; O2SAT 99
[2024-10-11] MEDS: Divalproex Sodium ER 250 MG TAB.ER.24H 1250 MG PO (20:54)
[2024-10-11] MEDS: OLANZapine 10 MG TABLET 20 MG PO (20:56)
[2024-10-11] MEDS: Prazosin HCL 1 MG CAPSULE PO (20:56)
[2024-10-11] MEDS: Melatonin 3 MG TABLET PO (20:56)
[2024-10-11] MEDS: traZODone HCL 50 MG TABLET PO (20:56)
[2024-10-11] MEDS: hydrOXYzine HCL 25 MG TABLET PO (20:56)
[2024-10-12] MEDS: Levothyroxine Sodium 112 MCG TABLET PO (06:59)
[2024-10-12 08:00] VITALS: BP 86/49; PULSE 60; RESP 16; TEMP 36.1; O2SAT 98
[2024-10-12] MEDS: Midodrine HCl 5 MG TABLET PO ×3 (08:10→16:41)
[2024-10-12] MEDS: Fludrocortisone Acetate 0.1 MG TABLET PO ×2 (08:12→21:24)
[2024-10-12 13:30] VITALS: BP 115/56
[2024-10-12] MEDS: Albuterol Sulfate 90 MCG 8 GM INHALER 2 PUFF INHALE (13:34)
[2024-10-12 16:41] VITALS: BP 106/61
--- NOTE | 2024-10-12 17:28 | P.PNPSI_ITS ---
Subjective Subjective Date of Service: 10/12/24 Reason For Visit: SI Interim History: Pt is visable in milieu, interactive today. Discussed wanting voucher for housing (hotel) vs respite. Encouraged to work with her [facility] team and consider their options and rationale. Med review. Message left with spring regarding last dosing of Haldol Dec. Pt believes it was less than 3 weeks ago. Discussued hypotension, midodrine parameters which she agrees with. Later in the day pt is in the milieu with peers, well engaged with them and with team. She has not attended group as yet per team report. Medication Compliance: Yes Side effects from medications: No Attending Groups: No Review of Systems Acute medical concerns: No Medical Review of Systems: unchanged Review of Systems Review of Systems she denies sx today Mental Status Exam Mental Status Exam Patient Appearance: Appropriate Patient Orientation: Person, Place, Time and Situation Level of Consciousness: Alert Patient Behavior: Talkative and Good Eye Contact Mood Description: Constricted Affect Description: Constricted Patient Cognition Impaired: No Ability to Follow Directions: Good Speech Pattern: Spontaneous Speech Memory Description: Episodic Impaired Hallucinations: None (denies) Delusions: Not Present Perceptual Disturbances: Derealization Thought Process: Distracted Thought Content: positive for Circumstantial Depressive Symptoms: Increased Fatigue Judgement: Fair Diagnostics Vital Signs (24Hr): Vital Signs - 24 hr 10/11/24 17:50 10/11/24 18:14 10/11/24 19:58 Temperature 97.5 F Pulse Rate 64 56 Respiratory Rate 18 Blood Pressure 77/43 L 77/43 L 168/63 H Pulse Oximetry 99 Oxygen Delivery Method Room Air 10/12/24 08:00 10/12/24 13:30 10/12/24 16:41 Temperature 97.0 F Pulse Rate 60 Respiratory Rate 16 Blood Pressure 86/49 L 115/56 L 106/61 Pulse Oximetry 98 Oxygen Delivery Method Room Air BMI result Body Mass Index 25.7 Labs 10/06/24 11:02 10/06/24 11:02 Medications Medications Current Medications Acetaminophen (Acetaminophen 325 Mg Tablet) 650 mg PO Q6H PRN PRN Reason: Headache/Pain Mild Scale (1-3) Last Admin: 10/10/24 22:50 Dose: 650 mg Albuterol Sulfate (Albuterol Sulfate 90 Mcg 8 Gm Inhaler) 2 puff INHALE RQ4H PRN PRN Reason: sob Last Admin: 10/12/24 13:34 Dose: 2 puff Divalproex Sodium (Divalproex Sodium Er 250 Mg Tab.Er.24h) 1,250 mg PO BEDTIME YOSELIN Last Admin: 10/11/24 20:54 Dose: 1,250 mg Famotidine (Famotidine 20 Mg Tablet) 20 mg PO BID PRN PRN Reason: Heartburn Fludrocortisone Acetate (Fludrocortisone Acetate 0.1 Mg Tablet) 0.1 mg PO BID [facility] Last Admin: 10/12/24 08:12 Dose: 0.1 mg Haloperidol (Haloperidol 5 Mg Tablet) 5 mg PO BID [facility] Last Admin: 10/12/24 08:11 Dose: Not Given Hydroxyzine HCl (Hydroxyzine Hcl 25 Mg Tablet) 25 mg PO Q6H PRN PRN Reason: Anxiety Last Admin: 10/11/24 20:56 Dose: 25 mg Levothyroxine Sodium (Levothyroxine Sodium 112 Mcg Tablet) 112 mcg PO DAILY@0600 [facility] Last Admin: 10/12/24 06:59 Dose: 112 mcg Magnesium Hydroxide (Milk Of Magnesia 30 Ml Oral.Susp) 30 ml PO DAILY PRN PRN Reason: Constipation Melatonin (Melatonin 3 Mg Tablet) 3 mg PO BEDTIME [facility] Last Admin: 10/11/24 20:56 Dose: 3 mg Midodrine (Midodrine Hcl 5 Mg Tablet) 5 mg PO TIDWM [facility] Last Admin: 10/12/24 16:41 Dose: 5 mg Nicotine Polacrilex (Nicotine Polacrilex 2 Mg Gum) 4 mg BUCCAL Q2H PRN PRN Reason: Nicotine Cravings Last Admin: 10/08/24 19:06 Dose: 4 mg Olanzapine (Olanzapine 5 Mg Tablet) 5 mg PO TID PRN PRN Reason: agitation Last Admin: 10/10/24 20:38 Dose: 5 mg Olanzapine (Olanzapine 10 Mg Tablet) 20 mg PO BEDTIME [facility] Last Admin: 10/11/24 20:56 Dose: 20 mg Prazosin HCl (Prazosin Hcl 1 Mg Capsule) 1 mg PO BEDTIME [facility]; Protocol Last Admin: 10/11/24 20:56 Dose: 1 mg Trazodone HCl (Trazodone Hcl 50 Mg Tablet) 50 mg PO BEDTIME MRX1 PRN PRN Reason: Insomnia Last Admin: 10/11/24 20:56 Dose: 50 mg Allergies Allergies Allergy/AdvReac Type Severity Reaction Status Date / Time risperidone Allergy Unknown Verified 10/06/24 10:29 Assessment & Plan Assessment & Plan (1) Schizoaffective disorder, bipolar type: Status: Acute Code(s): F25.0 - Schizoaffective disorder, bipolar type (2) Cocaine use disorder, moderate, dependence: Status: Acute Code(s): F14.20 - Cocaine dependence, uncomplicated (3) PTSD (post-traumatic stress disorder): Status: Acute Code(s): F43.10 - Post-traumatic stress disorder, unspecified (4) Homeless: Status: Acute Code(s): Z59.00 - Homelessness unspecified Plan HPI: Patient is a 34-year-old female with history of schizoaffective disorder, bipolar type, PTSD: cocaine use disorder, Graves disease (s/p radioactive ablation), hypothyroidism, adrenal insufficiency, GERD, asthma who presents for disorganized behavior, delusions and AH and with comments about SI. Patient reports that she was never actually suicidal but just said she was in order to get admitted. 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 Her goal is to get her GED so she can go to [place] and help stop the pending wars. Otherwise she mostly wants help getting housing. Patient acknowledges that she uses cocaine but vague on amount. Alludes to being off her medications until she arrived to the hospital. She denies any SI or HI; acknowledges AH as mentioned above. Manager Talent reviewed medications provided by hospital with which patient agrees with continuing. Formulation/clinical reasoning: Patient has history of schizoaffective disorder, exacerbated by cocaine abuse and poor medication adherence. Patient has DM services. Currently is with paranoid/grandiose delusionary thinking; She has been off her medications and is somewhat confused and perhaps limited in her ability to manage life tasks. Continuing medications that were just restarted in the ED. Will reach out to [facility] worker for collateral Plan: CV Q 15 minute checks Home medications: Haldol Decanoate 100 mg RODRIGUEZ Q monthly last received on 09/27/24 Haloperidol 5 mg b.i.d. Olanzapine 20 mg q.h.s. Depakote ER 500 mg q.h.s.? (normally takes 250 mg IR b.i.d.) Prazosin 1 mg q.h.s.; normally takes 2 mg Trazodone 50 mg p.r.n. q.h.s. Levothyroxine 20 mcg daily Famotidine 20 mg b.i.d. p.r.n. Fludrocortisone 0.1 mg b.i.d. Midodrine 5 mg t.i.d. Albuterol ?prn Did NOT start: HydroCORTisone 10 mg BID ?? See Instructions , Take 20 mg in AM and 10 mg at 3 pm on 09/13, take 15 mg in AM and 10 mg at 3 pm on 09/14, 09/15, 09/16, take 10 mg in AM and at 3 pm after that 10/08/24: no changes to current plan. 10/09: no changesas per primary team 10/11: [facility] provided med list. Depakote 1250 mg-increased Haldol Dec 150 mg-hold until we have further info Hydrocortisone-initially ordered, then DC'ed due to conflicts in directions. Levothyroxine 112 mcg daily-increased Melatonin 3 mg hs, added Midodrine-dosage not changed Olanzapine continued Prazosin continued Attempting to clarify Haldol Dec, Hydrocortisone at this time. 10/12: Message left with Blaine Montero to discuss last Haldol injection. Pt reports not on 09/27 as noted. Reason for continued inpatient stay Substantial Risk for: rapid decompensation and med/psych decompensation Time Spent With Patient Time: Total time managing care of this patient today ____ minutes.
[2024-10-12 20:00] VITALS: BP 109/67; PULSE 68; TEMP 36.7; O2SAT 98
[2024-10-12 21:24] VITALS: BP 109/67
[2024-10-12] MEDS: Prazosin HCL 1 MG CAPSULE PO (21:24)
[2024-10-12] MEDS: Divalproex Sodium ER 250 MG TAB.ER.24H 1250 MG PO (21:24)
[2024-10-12] MEDS: HaloperidoL 5 MG TABLET PO (21:25)
[2024-10-12] MEDS: OLANZapine 10 MG TABLET 20 MG PO (21:25)
[2024-10-12] MEDS: Melatonin 3 MG TABLET PO (21:25)
[2024-10-12] MEDS: traZODone HCL 50 MG TABLET PO (21:25)
[2024-10-13 08:00] VITALS: RESP 16
--- NOTE | 2024-10-13 10:25 | PM.EVENT ---
Event Note Date of Service: 10/13/24 Event Note: received updated med list which included Hydrocortisone 10mg bid, but did not include Fludrocortisone; she is also on Mididrone. Since BP still on low side will leave Fludrocortisone Time Spent With Patient Time: Total time managing care of this patient today ____ minutes.
--- NOTE | 2024-10-13 14:03 | P.PNPSI_ITS ---
Subjective Subjective Date of Service: 10/13/24 Reason For Visit: SI Subjective Notes: Conditional Voluntary Interim History: Keeping to self. laying in bed. guarded. pt reports feeling fine just tired today; pt reports her plan is to go to respite after discharge. medication compliant. states she is attending some groups. denies SI/HI/VH/AH. discussed with 7th grade social studies teacher. Medication Compliance: Yes Side effects from medications: No Attending Groups: Intermittent Mental Status Exam Mental Status Exam Patient Appearance: Appropriate Patient Orientation: Person, Place, Time and Situation Level of Consciousness: Awake Patient Behavior: Guarded, Cooperative and Poor Eye Contact Mood Description: Calm Affect Description: Calm Ability to Follow Directions: Good Speech Pattern: Clear Memory Description: Intact Hallucinations: None Delusions: Not Present Thought Process: Intact and Goal Oriented Thought Content: positive for Intact Diagnostics Vital Signs (24Hr): Vital Signs - 24 hr 10/12/24 16:41 10/12/24 20:00 10/12/24 21:24 Temperature 98.1 F Pulse Rate 68 Blood Pressure 106/61 109/67 109/67 Pulse Oximetry 98 Oxygen Delivery Method Room Air BMI result Body Mass Index 25.7 Labs 10/06/24 11:02 10/06/24 11:02 Medications Medications Current Medications Acetaminophen (Acetaminophen 325 Mg Tablet) 650 mg PO Q6H PRN PRN Reason: Headache/Pain Mild Scale (1-3) Last Admin: 10/10/24 22:50 Dose: 650 mg Albuterol Sulfate (Albuterol Sulfate 90 Mcg 8 Gm Inhaler) 2 puff INHALE RQ4H PRN PRN Reason: sob Last Admin: 10/12/24 13:34 Dose: 2 puff Divalproex Sodium (Divalproex Sodium Er 250 Mg Tab.Er.24h) 1,250 mg PO BEDTIME [facility] Last Admin: 10/12/24 21:24 Dose: 1,250 mg Famotidine (Famotidine 20 Mg Tablet) 20 mg PO BID PRN PRN Reason: Heartburn Fludrocortisone Acetate (Fludrocortisone Acetate 0.1 Mg Tablet) 0.1 mg PO BID [facility] Last Admin: 10/13/24 09:01 Dose: Not Given Haloperidol (Haloperidol 5 Mg Tablet) 5 mg PO BID [facility] Last Admin: 10/13/24 09:01 Dose: Not Given Hydrocortisone (Hydrocortisone 10 Mg Tablet) 10 mg PO BIDWM [facility] Hydroxyzine HCl (Hydroxyzine Hcl 25 Mg Tablet) 25 mg PO Q6H PRN PRN Reason: Anxiety Last Admin: 10/11/24 20:56 Dose: 25 mg Levothyroxine Sodium (Levothyroxine Sodium 112 Mcg Tablet) 112 mcg PO DAILY@0600 [facility] Last Admin: 10/13/24 09:00 Dose: Not Given Magnesium Hydroxide (Milk Of Magnesia 30 Ml Oral.Susp) 30 ml PO DAILY PRN PRN Reason: Constipation Melatonin (Melatonin 3 Mg Tablet) 3 mg PO BEDTIME [facility] Last Admin: 10/12/24 21:25 Dose: 3 mg Midodrine (Midodrine Hcl 5 Mg Tablet) 5 mg PO TIDWM [facility] Last Admin: 10/13/24 09:00 Dose: Not Given Nicotine Polacrilex (Nicotine Polacrilex 2 Mg Gum) 4 mg BUCCAL Q2H PRN PRN Reason: Nicotine Cravings Last Admin: 10/08/24 19:06 Dose: 4 mg Olanzapine (Olanzapine 5 Mg Tablet) 5 mg PO TID PRN PRN Reason: agitation Last Admin: 10/10/24 20:38 Dose: 5 mg Olanzapine (Olanzapine 10 Mg Tablet) 20 mg PO BEDTIME [facility] Last Admin: 10/12/24 21:25 Dose: 20 mg Prazosin HCl (Prazosin Hcl 1 Mg Capsule) 1 mg PO BEDTIME [facility]; Protocol Last Admin: 10/12/24 21:24 Dose: 1 mg Trazodone HCl (Trazodone Hcl 50 Mg Tablet) 50 mg PO BEDTIME MRX1 PRN PRN Reason: Insomnia Last Admin: 10/12/24 21:25 Dose: 50 mg Allergies Allergies Allergy/AdvReac Type Severity Reaction Status Date / Time risperidone Allergy Unknown Verified 10/06/24 10:29 Assessment & Plan Assessment & Plan (1) Schizoaffective disorder, bipolar type: Status: Acute Code(s): F25.0 - Schizoaffective disorder, bipolar type (2) Cocaine use disorder, moderate, dependence: Status: Acute Code(s): F14.20 - Cocaine dependence, uncomplicated (3) PTSD (post-traumatic stress disorder): Status: Acute Code(s): F43.10 - Post-traumatic stress disorder, unspecified (4) Homeless: Status: Acute Code(s): Z59.00 - Homelessness unspecified Plan HPI: Patient is a 34-year-old female with history of schizoaffective disorder, bipolar type, PTSD: cocaine use disorder, Graves disease (s/p radioactive ablation), hypothyroidism, adrenal insufficiency, GERD, asthma who presents for disorganized behavior, delusions and AH and with comments about SI. Patient reports that she was never actually suicidal but just said she was in order to get admitted. 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 Her goal is to get her GED so she can go to [place] and help stop the pending wars. Otherwise she mostly wants help getting housing. Patient acknowledges that she uses cocaine but vague on amount. Alludes to being off her medications until she arrived to the hospital. She denies any SI or HI; acknowledges AH as mentioned above. Announcer reviewed medications provided by hospital with which patient agrees with continuing. Formulation/clinical reasoning: Patient has history of schizoaffective disorder, exacerbated by cocaine abuse and poor medication adherence. Patient has [facility] services. Currently is with paranoid/grandiose delusionary thinking; She has been off her medications and is somewhat confused and perhaps limited in her ability to manage life tasks. Continuing medications that were just restarted in the ED. Will reach out to [facility] worker for collateral Plan: CV Q 15 minute checks Home medications: Haldol Decanoate 100 mg RODRIGUEZ Q monthly last received on 09/27/24 Haloperidol 5 mg b.i.d. Olanzapine 20 mg q.h.s. Depakote ER 500 mg q.h.s.? (normally takes 250 mg IR b.i.d.) Prazosin 1 mg q.h.s.; normally takes 2 mg Trazodone 50 mg p.r.n. q.h.s. Levothyroxine 20 mcg daily Famotidine 20 mg b.i.d. p.r.n. Fludrocortisone 0.1 mg b.i.d. Midodrine 5 mg t.i.d. Albuterol ?prn Did NOT start: HydroCORTisone 10 mg BID ?? See Instructions , Take 20 mg in AM and 10 mg at 3 pm on 09/13, take 15 mg in AM and 10 mg at 3 pm on 09/14, 09/15, 09/16, take 10 mg in AM and at 3 pm after that 10/08/24: no changes to current plan. 10/09: no changesas per primary team 10/11: [facility] provided med list. Depakote 1250 mg-increased Haldol Dec 150 mg-hold until we have further info Hydrocortisone-initially ordered, then DC'ed due to conflicts in directions. Levothyroxine 112 mcg daily-increased Melatonin 3 mg hs, added Midodrine-dosage not changed Olanzapine continued Prazosin continued Attempting to clarify Haldol Dec, Hydrocortisone at this time. 10/12: Message left with spring to discuss last Haldol injection. Pt reports not on 09/27 as noted. 10/13: Keeping to self. laying in bed. guarded. pt reports feeling fine just tired today; pt reports her plan is to go to respite after discharge. medication compliant. states she is attending some groups. denies SI/HI/VH/AH. discussed with 7th grade social studies teacher. Patient educated on: diagnosis, medication risk/benefits and therapeutic strategies Reason for continued inpatient stay Substantial Risk for: med/psych decompensation Time Spent With Patient Time: Total time managing care of this patient today _20___ minutes.
[2024-10-13] MEDS: Hydrocortisone 10 MG TABLET PO (16:52)
[2024-10-13] MEDS: Midodrine HCl 5 MG TABLET PO (16:52)
[2024-10-13] MEDS: OLANZapine 5 MG TABLET PO (16:52)
[2024-10-13 17:03] VITALS: BP 114/57; PULSE 72; RESP 16; TEMP 36.8; O2SAT 97
[2024-10-13] MEDS: Nicotine Polacrilex 2 MG GUM 4 MG BUCCAL (19:37)
[2024-10-13 20:00] VITALS: BP 127/74; PULSE 70; TEMP 36.7; O2SAT 100
[2024-10-13 20:55] VITALS: BP 127/74
[2024-10-13] MEDS: Prazosin HCL 1 MG CAPSULE PO (20:55)
[2024-10-13] MEDS: Divalproex Sodium ER 250 MG TAB.ER.24H 1250 MG PO (20:55)
[2024-10-13] MEDS: Melatonin 3 MG TABLET PO (20:56)
[2024-10-13] MEDS: OLANZapine 10 MG TABLET 20 MG PO (20:56)
[2024-10-13] MEDS: HaloperidoL 5 MG TABLET PO (20:56)
[2024-10-13] MEDS: Fludrocortisone Acetate 0.1 MG TABLET PO (20:56)
[2024-10-14] MEDS: traZODone HCL 50 MG TABLET PO ×3 (00:03→22:53)
--- NOTE | 2024-10-14 09:47 | P.PNPSI_ITS ---
Subjective Subjective Date of Service: 10/14/24 Reason For Visit: SI Interim History: met with patient; discussed with team; reviewed chart Patient calm, cooperative and in good behavior and impulse control. Remains with delusional thoughts, saying that she is going to join the [employer] staff as well as some branch of the ; this also includes stopping a war with [place] and helping his real, as well as getting her GED. Patient said she thinks she will be okay to discharge next week however and go to respite. She says she is without any SI at all and denies any [facility] Mental Status Exam Mental Status Exam Narrative: Pt is alert and oriented; behavior is cooperative, friendly and calm; patient is not in distress; dressed in casual attire with unkempt hair but adequate hygiene; mood is described as good and affect a little blunted; eye contact appropriate; Speech is a little slowed; normal volume and prosody; no psychomotor retardation present; thought process is organized and goal directed; Thought content is on housing but also with grandiose ideations; denies any SI/HI. Positive for AH and seems to be internally preoccupied. Patients insight and judgment impaired; possibly at baseline? Diagnostics Vital Signs (24Hr): Vital Signs - 24 hr 10/13/24 17:03 10/13/24 20:00 10/13/24 20:55 Temperature 98.2 F 98.1 F Pulse Rate 72 70 Respiratory Rate 16 Blood Pressure 114/57 L 127/74 127/74 Pulse Oximetry 97 100 Oxygen Delivery Method Room Air Room Air BMI result Body Mass Index 25.7 Labs 10/06/24 11:02 10/06/24 11:02 Medications Medications Current Medications Acetaminophen (Acetaminophen 325 Mg Tablet) 650 mg PO Q6H PRN PRN Reason: Headache/Pain Mild Scale (1-3) Last Admin: 10/10/24 22:50 Dose: 650 mg Albuterol Sulfate (Albuterol Sulfate 90 Mcg 8 Gm Inhaler) 2 puff INHALE RQ4H PRN PRN Reason: sob Last Admin: 10/12/24 13:34 Dose: 2 puff Divalproex Sodium (Divalproex Sodium Er 250 Mg Tab.Er.24h) 1,250 mg PO BEDTIME YOSELIN Last Admin: 10/13/24 20:55 Dose: 1,250 mg Famotidine (Famotidine 20 Mg Tablet) 20 mg PO BID PRN PRN Reason: Heartburn Fludrocortisone Acetate (Fludrocortisone Acetate 0.1 Mg Tablet) 0.1 mg PO BID [facility] Last Admin: 10/13/24 20:56 Dose: 0.1 mg Haloperidol (Haloperidol 5 Mg Tablet) 5 mg PO BID [facility] Last Admin: 10/13/24 20:56 Dose: 5 mg Hydrocortisone (Hydrocortisone 10 Mg Tablet) 10 mg PO BIDWM [facility] Last Admin: 10/13/24 16:52 Dose: 10 mg Hydroxyzine HCl (Hydroxyzine Hcl 25 Mg Tablet) 25 mg PO Q6H PRN PRN Reason: Anxiety Last Admin: 10/11/24 20:56 Dose: 25 mg Levothyroxine Sodium (Levothyroxine Sodium 112 Mcg Tablet) 112 mcg PO DAILY@0600 [facility] Last Admin: 10/13/24 09:00 Dose: Not Given Magnesium Hydroxide (Milk Of Magnesia 30 Ml Oral.Susp) 30 ml PO DAILY PRN PRN Reason: Constipation Melatonin (Melatonin 3 Mg Tablet) 3 mg PO BEDTIME [facility] Last Admin: 10/13/24 20:56 Dose: 3 mg Midodrine (Midodrine Hcl 5 Mg Tablet) 5 mg PO TIDWM [facility] Last Admin: 10/14/24 09:28 Dose: Not Given Nicotine Polacrilex (Nicotine Polacrilex 2 Mg Gum) 4 mg BUCCAL Q2H PRN PRN Reason: Nicotine Cravings Last Admin: 10/13/24 19:37 Dose: 4 mg Olanzapine (Olanzapine 5 Mg Tablet) 5 mg PO TID PRN PRN Reason: agitation Last Admin: 10/13/24 16:52 Dose: 5 mg Olanzapine (Olanzapine 10 Mg Tablet) 20 mg PO BEDTIME [facility] Last Admin: 10/13/24 20:56 Dose: 20 mg Prazosin HCl (Prazosin Hcl 1 Mg Capsule) 1 mg PO BEDTIME [facility]; Protocol Last Admin: 10/13/24 20:55 Dose: 1 mg Trazodone HCl (Trazodone Hcl 50 Mg Tablet) 50 mg PO BEDTIME MRX1 PRN PRN Reason: Insomnia Last Admin: 10/14/24 00:03 Dose: 50 mg Allergies Allergies Allergy/AdvReac Type Severity Reaction Status Date / Time risperidone Allergy Unknown Verified 10/06/24 10:29 Assessment & Plan Assessment & Plan (1) Schizoaffective disorder, bipolar type: Status: Acute Code(s): F25.0 - Schizoaffective disorder, bipolar type (2) Cocaine use disorder, moderate, dependence: Status: Acute Code(s): F14.20 - Cocaine dependence, uncomplicated (3) PTSD (post-traumatic stress disorder): Status: Acute Code(s): F43.10 - Post-traumatic stress disorder, unspecified (4) Homeless: Status: Acute Code(s): Z59.00 - Homelessness unspecified Plan HPI: Patient is a 34-year-old female with history of schizoaffective disorder, bipolar type, PTSD: cocaine use disorder, Graves disease (s/p radioactive ablation), hypothyroidism, adrenal insufficiency, GERD, asthma who presents for disorganized behavior, delusions and AH and with comments about SI. Patient reports that she was never actually suicidal but just said she was in order to get admitted. 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 Her goal is to get her GED so she can go to [place] and help stop the pending wars. Otherwise she mostly wants help getting housing. Patient acknowledges that she uses cocaine but vague on amount. Alludes to being off her medications until she arrived to the hospital. She denies any SI or HI; acknowledges AH as mentioned above. Claim Processing Specialist reviewed medications provided by hospital with which patient agrees with continuing. Formulation/clinical reasoning: Patient has history of schizoaffective disorder, exacerbated by cocaine abuse and poor medication adherence. Patient has DM services. Currently is with paranoid/grandiose delusionary thinking; She has been off her medications and is somewhat confused and perhaps limited in her ability to manage life tasks. Continuing medications that were just restarted in the ED. Will reach out to DM worker for collateral Hospital course: 10/08/24: no changes to current plan. 10/09: no changesas per primary team 10/11: [facility] provided med list. Depakote 1250 mg-increased Haldol Dec 150 mg-hold until we have further info Hydrocortisone-initially ordered, then DC'ed due to conflicts in directions. Levothyroxine 112 mcg daily-increased Melatonin 3 mg hs, added Midodrine-dosage not changed Olanzapine continued Prazosin continued 10/12: Message left with spring to discuss last Haldol injection. Pt reports not on 09/27 as noted. 10/13: Keeping to self. laying in bed. guarded. pt reports feeling fine just tired today; pt reports her plan is to go to respite after discharge. medication compliant. states she is attending some groups. denies SI/HI/VH/AH. discussed with social economist. 10/14 Patient calm, cooperative and in good behavior and impulse control. Remains with delusional thoughts, saying that she is going to join the [employer] staff as well as some branch of the ; this also includes stopping a war with [place] and helping his real, as well as getting her GED. Patient said she thinks she will be okay to discharge next week however and go to respite. She says she is without any SI at all and denies any AVH Plan: CV Q 15 minute checks Home medications: Haldol Decanoate 100 mg RODRIGUEZ Q monthly last received on 09/27/24 Haloperidol 5 mg b.i.d. Olanzapine 20 mg q.h.s. Depakote ER 500 mg q.h.s.? (normally takes 250 mg IR b.i.d.) Prazosin 1 mg q.h.s.; normally takes 2 mg Trazodone 50 mg p.r.n. q.h.s. Levothyroxine 20 mcg daily Famotidine 20 mg b.i.d. p.r.n. Fludrocortisone 0.1 mg b.i.d. Midodrine 5 mg t.i.d. Albuterol ?prn HydroCORTisone 10 mg BID Patient educated on: diagnosis, medication risk/benefits and therapeutic strategies Informed Consent: understands, does not understand and further education needed Reason for continued inpatient stay Substantial Risk for: stable for discharge, rapid decompensation and med/psych decompensation Time Spent With Patient Time: Total time managing care of this patient today ____ minutes.
[2024-10-14 16:58] VITALS: BP 90/50; RESP 16; TEMP 36; O2SAT 97
[2024-10-14] MEDS: Midodrine HCl 5 MG TABLET PO (17:16)
[2024-10-14] MEDS: Hydrocortisone 10 MG TABLET PO (17:17)
[2024-10-14 19:16] LABS: Ammonia 41 umol/L (13-55)
[2024-10-14 19:22] LABS: Alanine Aminotransferase 16 U/L (0-31); Alkaline Phosphatase 49 U/L (39-117); Aspartate Amino Transferase 18 U/L (5-31); Bilirubin Direct < 0.2 mg/dL (0.0-0.5); Bilirubin Total 0.2 mg/dL (0.0-1.0); Total Protein 7.3 g/dL (6.5-8.0)
[2024-10-14 19:24] LABS: Valproate 55.9 mcg/mL (50.0-100.0)
[2024-10-14 19:46] VITALS: BP 118/73; PULSE 73; RESP 16; TEMP 36.6; O2SAT 98
[2024-10-14] MEDS: Nicotine Polacrilex 2 MG GUM 4 MG BUCCAL (20:26)
[2024-10-14] MEDS: Prazosin HCL 1 MG CAPSULE PO (21:04)
[2024-10-14] MEDS: Melatonin 3 MG TABLET PO (21:04)
[2024-10-14] MEDS: Divalproex Sodium ER 250 MG TAB.ER.24H 1250 MG PO (21:04)
[2024-10-14] MEDS: Fludrocortisone Acetate 0.1 MG TABLET PO (21:04)
[2024-10-14] MEDS: OLANZapine 10 MG TABLET 20 MG PO (21:04)
[2024-10-14] MEDS: HaloperidoL 5 MG TABLET PO (21:04)
[2024-10-14] MEDS: Acetaminophen 325 MG TABLET 650 MG PO (22:53)
[2024-10-14] MEDS: hydrOXYzine HCL 25 MG TABLET PO (22:53)
--- NOTE | 2024-10-15 08:13 | HO.PSYCHPN ---
Subjective Subjective Date of Service: 10/15/24 Reason For Visit: SI Interim History: met with patient; discussed with team; reviewed chart. Has been spending a lot of time in her room sleeping. Remains focused on discharge planning having a place to stay. With script writer minimal engagement, states she is ready for discharge, but also fearful if she does not have somewhere to stay. Otherwise very minimal engagement. Did no delusional thoughts documented yesterday. Medication Compliance: Yes Side effects from medications: No Attending Groups: No Review of Systems Acute medical concerns: No Review of Systems Review of Systems Nothing of note Mental Status Exam Mental Status Exam Narrative: Pt is alert and oriented; behavior is cooperative, friendly and calm; patient is not in distress; dressed in casual attire with unkempt hair but adequate hygiene; mood is described as good and affect a little blunted; eye contact appropriate; Speech is a little slowed; normal volume and prosody; no psychomotor retardation present; thought process is organized and goal directed; Thought content is on housing. Denies any SI/HI. Denied AH today. Patients insight and judgment impaired; possibly at baseline? Diagnostics Vital Signs (24Hr): Vital Signs - 24 hr 10/14/24 16:58 10/14/24 19:46 Temperature 96.8 F 97.8 F Pulse Rate 73 Respiratory Rate 16 16 Blood Pressure 90/50 L 118/73 Pulse Oximetry 97 98 Oxygen Delivery Method Room Air Room Air BMI result Body Mass Index 25.7 Labs 10/06/24 11:02 10/06/24 11:02 Labs: Laboratory Results - last 48 hr 10/14/24 18:56 Total Bilirubin 0.2 Direct Bilirubin < 0.2 AST 18 ALT 16 Alkaline Phosphatase 49 Ammonia 41 Total Protein 7.3 Albumin 4.0 Valproic Acid 55.9 Medications Medications Current Medications Acetaminophen (Acetaminophen 325 Mg Tablet) 650 mg PO Q6H PRN PRN Reason: Headache/Pain Mild Scale (1-3) Last Admin: 10/14/24 22:53 Dose: 650 mg Albuterol Sulfate (Albuterol Sulfate 90 Mcg 8 Gm Inhaler) 2 puff INHALE RQ4H PRN PRN Reason: sob Last Admin: 10/12/24 13:34 Dose: 2 puff Divalproex Sodium (Divalproex Sodium Er 250 Mg Tab.Er.24h) 1,250 mg PO BEDTIME YOSELIN Last Admin: 10/14/24 21:04 Dose: 1,250 mg Famotidine (Famotidine 20 Mg Tablet) 20 mg PO BID PRN PRN Reason: Heartburn Fludrocortisone Acetate (Fludrocortisone Acetate 0.1 Mg Tablet) 0.1 mg PO BID [facility] Last Admin: 10/14/24 21:04 Dose: 0.1 mg Haloperidol (Haloperidol 5 Mg Tablet) 5 mg PO BID [facility] Last Admin: 10/14/24 21:04 Dose: 5 mg Hydrocortisone (Hydrocortisone 10 Mg Tablet) 10 mg PO BIDWM [facility] Last Admin: 10/14/24 17:17 Dose: 10 mg Hydroxyzine HCl (Hydroxyzine Hcl 25 Mg Tablet) 25 mg PO Q6H PRN PRN Reason: Anxiety Last Admin: 10/14/24 22:53 Dose: 25 mg Levothyroxine Sodium (Levothyroxine Sodium 112 Mcg Tablet) 112 mcg PO DAILY@0600 [facility] Last Admin: 10/14/24 10:32 Dose: Not Given Magnesium Hydroxide (Milk Of Magnesia 30 Ml Oral.Susp) 30 ml PO DAILY PRN PRN Reason: Constipation Melatonin (Melatonin 3 Mg Tablet) 3 mg PO BEDTIME [facility] Last Admin: 10/14/24 21:04 Dose: 3 mg Midodrine (Midodrine Hcl 5 Mg Tablet) 5 mg PO TIDWM [facility] Last Admin: 10/14/24 17:16 Dose: 5 mg Nicotine Polacrilex (Nicotine Polacrilex 2 Mg Gum) 4 mg BUCCAL Q2H PRN PRN Reason: Nicotine Cravings Last Admin: 10/14/24 20:26 Dose: 4 mg Olanzapine (Olanzapine 5 Mg Tablet) 5 mg PO TID PRN PRN Reason: agitation Last Admin: 10/13/24 16:52 Dose: 5 mg Olanzapine (Olanzapine 10 Mg Tablet) 20 mg PO BEDTIME [facility] Last Admin: 10/14/24 21:04 Dose: 20 mg Prazosin HCl (Prazosin Hcl 1 Mg Capsule) 1 mg PO BEDTIME [facility]; Protocol Last Admin: 10/14/24 21:04 Dose: 1 mg Trazodone HCl (Trazodone Hcl 50 Mg Tablet) 50 mg PO BEDTIME MRX1 PRN PRN Reason: Insomnia Last Admin: 10/14/24 22:53 Dose: 50 mg Allergies Allergies Allergy/AdvReac Type Severity Reaction Status Date / Time risperidone Allergy Unknown Verified 10/06/24 10:29 Assessment & Plan Assessment & Plan (1) Schizoaffective disorder, bipolar type: Status: Acute Code(s): F25.0 - Schizoaffective disorder, bipolar type (2) Cocaine use disorder, moderate, dependence: Status: Acute Code(s): F14.20 - Cocaine dependence, uncomplicated (3) PTSD (post-traumatic stress disorder): Status: Acute Code(s): F43.10 - Post-traumatic stress disorder, unspecified (4) Homeless: Status: Acute Code(s): Z59.00 - Homelessness unspecified Plan HPI: Patient is a 34-year-old female with history of schizoaffective disorder, bipolar type, PTSD: cocaine use disorder, Graves disease (s/p radioactive ablation), hypothyroidism, adrenal insufficiency, GERD, asthma who presents for disorganized behavior, delusions and AH and with comments about SI. Patient reports that she was never actually suicidal but just said she was in order to get admitted. 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 Her goal is to get her GED so she can go to [place] and help stop the pending wars. Otherwise she mostly wants help getting housing. Patient acknowledges that she uses cocaine but vague on amount. Alludes to being off her medications until she arrived to the hospital. She denies any SI or HI; acknowledges AH as mentioned above. Horticultural Worker reviewed medications provided by hospital with which patient agrees with continuing. Formulation/clinical reasoning: Patient has history of schizoaffective disorder, exacerbated by cocaine abuse and poor medication adherence. Patient has [facility] services. Currently is with paranoid/grandiose delusionary thinking; She has been off her medications and is somewhat confused and perhaps limited in her ability to manage life tasks. Continuing medications that were just restarted in the ED. Will reach out to [facility] worker for collateral Hospital course: 10/08/24: no changes to current plan. 10/09: no changesas per primary team 10/11: [facility] provided med list. Depakote 1250 mg-increased Haldol Dec 150 mg-hold until we have further info Hydrocortisone-initially ordered, then DC'ed due to conflicts in directions. Levothyroxine 112 mcg daily-increased Melatonin 3 mg hs, added Midodrine-dosage not changed Olanzapine continued Prazosin continued 10/12: Message left with spring to discuss last Haldol injection. Pt reports not on 09/27 as noted. 10/13: Keeping to self. laying in bed. guarded. pt reports feeling fine just tired today; pt reports her plan is to go to respite after discharge. medication compliant. states she is attending some groups. denies SI/HI/VH/AH. discussed with sr. social media & mobile manager. 10/14 Patient calm, cooperative and in good behavior and impulse control. Remains with delusional thoughts, saying that she is going to join the [employer] staff as well as some branch of the ; this also includes stopping a war with [employer] and helping his real, as well as getting her GED. Patient said she thinks she will be okay to discharge next week however and go to respite. She says she is without any SI at all and denies any AVH 10/15: no changes. dispo planning focus Plan: CV Q 15 minute checks Home medications: Haldol Decanoate 100 mg RODRIGUEZ Q monthly last received on 09/27/24 Haloperidol 5 mg b.i.d. Olanzapine 20 mg q.h.s. Depakote ER 500 mg q.h.s.? (normally takes 250 mg IR b.i.d.) Prazosin 1 mg q.h.s.; normally takes 2 mg Trazodone 50 mg p.r.n. q.h.s. Levothyroxine 20 mcg daily Famotidine 20 mg b.i.d. p.r.n. Fludrocortisone 0.1 mg b.i.d. Midodrine 5 mg t.i.d. Albuterol ?prn HydroCORTisone 10 mg BID Reason for continued inpatient stay Substantial Risk for: inability to function and rapid decompensation Time Spent With Patient Time: Total time managing care of this patient today ____ minutes.
[2024-10-15 08:58] VITALS: BP 95/56; PULSE 50; RESP 16; TEMP 36.7; O2SAT 99
[2024-10-15] MEDS: HaloperidoL 5 MG TABLET PO ×2 (09:27→21:05)
[2024-10-15] MEDS: Levothyroxine Sodium 112 MCG TABLET PO (09:27)
[2024-10-15] MEDS: Midodrine HCl 5 MG TABLET PO ×3 (09:27→18:31)
[2024-10-15] MEDS: Fludrocortisone Acetate 0.1 MG TABLET PO ×2 (09:27→21:05)
[2024-10-15] MEDS: Hydrocortisone 10 MG TABLET PO ×2 (09:27→18:31)
[2024-10-15 12:40] VITALS: BP 78/47
[2024-10-15 18:31] VITALS: BP 100/59
[2024-10-15] MEDS: Nicotine Polacrilex 2 MG GUM 4 MG BUCCAL (18:43)
[2024-10-15 19:47] VITALS: BP 114/71; PULSE 92; RESP 16; TEMP 36.4; O2SAT 98
[2024-10-15] MEDS: Divalproex Sodium ER 250 MG TAB.ER.24H 1250 MG PO (21:05)
[2024-10-15] MEDS: hydrOXYzine HCL 25 MG TABLET PO (21:05)
[2024-10-15] MEDS: Melatonin 3 MG TABLET PO (21:05)
[2024-10-15] MEDS: traZODone HCL 50 MG TABLET PO (21:05)
[2024-10-15] MEDS: OLANZapine 10 MG TABLET 20 MG PO (21:05)
[2024-10-15] MEDS: Prazosin HCL 1 MG CAPSULE PO (21:05)
[2024-10-15] MEDS: Acetaminophen 325 MG TABLET 650 MG PO (21:05)
[2024-10-16] MEDS: Levothyroxine Sodium 112 MCG TABLET PO (09:39)
[2024-10-16] MEDS: Midodrine HCl 5 MG TABLET PO ×3 (09:39→17:30)
[2024-10-16] MEDS: Hydrocortisone 10 MG TABLET PO ×2 (09:40→17:30)
[2024-10-16] MEDS: HaloperidoL 5 MG TABLET PO ×2 (09:40→21:01)
[2024-10-16] MEDS: Fludrocortisone Acetate 0.1 MG TABLET PO ×2 (09:40→21:01)
[2024-10-16 09:41] VITALS: BP 97/61; PULSE 53; RESP 16; TEMP 36.5; O2SAT 97
--- NOTE | 2024-10-16 11:19 | P.PNPSI_ITS ---
Subjective Subjective Date of Service: 10/16/24 Reason For Visit: SI Interim History: met with patient; discussed with team. Has been making delusional statements to nursing. Continues spending a lot of time in her room sleeping. Otherwise focused on discharge. With show card writer minimal engagement- stating main concern is having a safe place to be after discharge. Review of Systems Review of Systems Nothing of note Mental Status Exam Mental Status Exam Narrative: Pt is alert and oriented; behavior is cooperative, friendly and calm; patient is not in distress; in bed sleeping most of the day, casual attire with unkempt hair but adequate hygiene; mood is described as ok and affect is blunted; eye contact appropriate; Speech is a little slowed; normal volume and prosody; no psychomotor retardation present; thought process is organized and goal directed; Thought content is on housing with some delusional beliefs voice to nursing. No evidence of SI, HI or hallucinations.Patients insight and judgment impaired; possibly at baseline? Diagnostics Vital Signs (24Hr): Vital Signs - 24 hr 10/15/24 12:40 10/15/24 18:31 10/15/24 19:47 Temperature 97.6 F Pulse Rate 92 Respiratory Rate 16 Blood Pressure 78/47 L 100/59 L 114/71 Pulse Oximetry 98 Oxygen Delivery Method Room Air 10/16/24 09:41 Temperature 97.7 F Pulse Rate 53 Respiratory Rate 16 Blood Pressure 97/61 Pulse Oximetry 97 Oxygen Delivery Method Room Air BMI result Body Mass Index 25.7 Labs 10/06/24 11:02 10/06/24 11:02 Labs: Laboratory Results - last 48 hr 10/14/24 18:56 Total Bilirubin 0.2 Direct Bilirubin < 0.2 AST 18 ALT 16 Alkaline Phosphatase 49 Ammonia 41 Total Protein 7.3 Albumin 4.0 Valproic Acid 55.9 Medications Medications Current Medications Acetaminophen (Acetaminophen 325 Mg Tablet) 650 mg PO Q6H PRN PRN Reason: Headache/Pain Mild Scale (1-3) Last Admin: 10/15/24 21:05 Dose: 650 mg Albuterol Sulfate (Albuterol Sulfate 90 Mcg 8 Gm Inhaler) 2 puff INHALE RQ4H PRN PRN Reason: sob Last Admin: 10/12/24 13:34 Dose: 2 puff Divalproex Sodium (Divalproex Sodium Er 250 Mg Tab.Er.24h) 1,250 mg PO BEDTIME YOSELIN Last Admin: 10/15/24 21:05 Dose: 1,250 mg Famotidine (Famotidine 20 Mg Tablet) 20 mg PO BID PRN PRN Reason: Heartburn Fludrocortisone Acetate (Fludrocortisone Acetate 0.1 Mg Tablet) 0.1 mg PO BID [facility] Last Admin: 10/16/24 09:40 Dose: 0.1 mg Haloperidol (Haloperidol 5 Mg Tablet) 5 mg PO BID [facility] Last Admin: 10/16/24 09:40 Dose: 5 mg Hydrocortisone (Hydrocortisone 10 Mg Tablet) 10 mg PO BIDWM [facility] Last Admin: 10/16/24 09:40 Dose: 10 mg Hydroxyzine HCl (Hydroxyzine Hcl 25 Mg Tablet) 25 mg PO Q6H PRN PRN Reason: Anxiety Last Admin: 10/15/24 21:05 Dose: 25 mg Levothyroxine Sodium (Levothyroxine Sodium 112 Mcg Tablet) 112 mcg PO DAILY@0600 [facility] Last Admin: 10/16/24 09:39 Dose: 112 mcg Magnesium Hydroxide (Milk Of Magnesia 30 Ml Oral.Susp) 30 ml PO DAILY PRN PRN Reason: Constipation Melatonin (Melatonin 3 Mg Tablet) 3 mg PO BEDTIME [facility] Last Admin: 10/15/24 21:05 Dose: 3 mg Midodrine (Midodrine Hcl 5 Mg Tablet) 5 mg PO TIDWM [facility] Last Admin: 10/16/24 09:39 Dose: 5 mg Nicotine Polacrilex (Nicotine Polacrilex 2 Mg Gum) 4 mg BUCCAL Q2H PRN PRN Reason: Nicotine Cravings Last Admin: 10/15/24 18:43 Dose: 4 mg Olanzapine (Olanzapine 5 Mg Tablet) 5 mg PO TID PRN PRN Reason: agitation Last Admin: 10/13/24 16:52 Dose: 5 mg Olanzapine (Olanzapine 10 Mg Tablet) 20 mg PO BEDTIME [facility] Last Admin: 10/15/24 21:05 Dose: 20 mg Prazosin HCl (Prazosin Hcl 1 Mg Capsule) 1 mg PO BEDTIME [facility]; Protocol Last Admin: 10/15/24 21:05 Dose: 1 mg Trazodone HCl (Trazodone Hcl 50 Mg Tablet) 50 mg PO BEDTIME MRX1 PRN PRN Reason: Insomnia Last Admin: 10/15/24 21:05 Dose: 50 mg Allergies Allergies Allergy/AdvReac Type Severity Reaction Status Date / Time risperidone Allergy Unknown Verified 10/06/24 10:29 Assessment & Plan Assessment & Plan (1) Schizoaffective disorder, bipolar type: Status: Acute Code(s): F25.0 - Schizoaffective disorder, bipolar type (2) Cocaine use disorder, moderate, dependence: Status: Acute Code(s): F14.20 - Cocaine dependence, uncomplicated (3) PTSD (post-traumatic stress disorder): Status: Acute Code(s): F43.10 - Post-traumatic stress disorder, unspecified (4) Homeless: Status: Acute Code(s): Z59.00 - Homelessness unspecified Plan HPI: Patient is a 34-year-old female with history of schizoaffective disorder, bipolar type, PTSD: cocaine use disorder, Graves disease (s/p radioactive ablation), hypothyroidism, adrenal insufficiency, GERD, asthma who presents for disorganized behavior, delusions and AH and with comments about SI. Patient reports that she was never actually suicidal but just said she was in order to get admitted. 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 Her goal is to get her GED so she can go to [place] and help stop the pending wars. Otherwise she mostly wants help getting housing. Patient acknowledges that she uses cocaine but vague on amount. Alludes to being off her medications until she arrived to the hospital. She denies any SI or HI; acknowledges AH as mentioned above. Sponsorship Manager reviewed medications provided by hospital with which patient agrees with continuing. Formulation/clinical reasoning: Patient has history of schizoaffective disorder, exacerbated by cocaine abuse and poor medication adherence. Patient has [facility] services. Currently is with paranoid/grandiose delusionary thinking; She has been off her medications and is somewhat confused and perhaps limited in her ability to manage life tasks. Continuing medications that were just restarted in the ED. Will reach out to [facility] worker for collateral Hospital course: 2/1/25: no changes to current plan. 10/09: no changesas per primary team 10/11: [facility] provided med list. Depakote 1250 mg-increased Haldol Dec 150 mg-hold until we have further info Hydrocortisone-initially ordered, then DC'ed due to conflicts in directions. Levothyroxine 112 mcg daily-increased Melatonin 3 mg hs, added Midodrine-dosage not changed Olanzapine continued Prazosin continued 10/12: Message left with spring to discuss last Haldol injection. Pt reports not on 09/27 as noted. 10/13: Keeping to self. laying in bed. guarded. pt reports feeling fine just tired today; pt reports her plan is to go to respite after discharge. medication compliant. states she is attending some groups. denies SI/HI/VH/AH. discussed with social media content manager. 10/14 Patient calm, cooperative and in good behavior and impulse control. Remains with delusional thoughts, saying that she is going to join the [employer] staff as well as some branch of the ; this also includes stopping a war with [employer] and helping his real, as well as getting her GED. Patient said she thinks she will be okay to discharge next week however and go to respite. She says she is without any SI at all and denies any AVH 10/16: no changes. dispo planning focus Plan: CV Q 15 minute checks Home medications: Haldol Decanoate 100 mg RODRIGUEZ Q monthly last received on 09/27/24 Haloperidol 5 mg b.i.d. Olanzapine 20 mg q.h.s. Depakote ER 500 mg q.h.s.? (normally takes 250 mg IR b.i.d.) Prazosin 1 mg q.h.s.; normally takes 2 mg Trazodone 50 mg p.r.n. q.h.s. Levothyroxine 20 mcg daily Famotidine 20 mg b.i.d. p.r.n. Fludrocortisone 0.1 mg b.i.d. Midodrine 5 mg t.i.d. Albuterol ?prn HydroCORTisone 10 mg BID Reason for continued inpatient stay Substantial Risk for: inability to function and rapid decompensation Time Spent With Patient Time: Total time managing care of this patient today ____ minutes.
[2024-10-16 12:41] VITALS: BP 95/54
[2024-10-16 15:55] VITALS: BP 111/78; PULSE 72
[2024-10-16 17:30] VITALS: BP 126/73
[2024-10-16 20:00] VITALS: BP 110/57; PULSE 65; RESP 16; TEMP 36.2; O2SAT 99
[2024-10-16] MEDS: OLANZapine 10 MG TABLET 20 MG PO (20:59)
[2024-10-16 21:00] VITALS: BP 110/57
[2024-10-16] MEDS: Prazosin HCL 1 MG CAPSULE PO (21:00)
[2024-10-16] MEDS: traZODone HCL 50 MG TABLET PO (21:00)
[2024-10-16] MEDS: hydrOXYzine HCL 25 MG TABLET PO (21:01)
[2024-10-16] MEDS: Divalproex Sodium ER 250 MG TAB.ER.24H 1250 MG PO (21:30)
[2024-10-16] MEDS: Acetaminophen 325 MG TABLET 650 MG PO (22:05)
[2024-10-16] MEDS: Melatonin 3 MG TABLET PO (22:10)
[2024-10-17] MEDS: Levothyroxine Sodium 112 MCG TABLET PO (07:26)
[2024-10-17 08:00] VITALS: BP 89/60; PULSE 63; RESP 16; TEMP 36.7; O2SAT 99
--- NOTE | 2024-10-17 10:14 | HO.PSYCHPN ---
Subjective Subjective Date of Service: 10/17/24 Reason For Visit: SI Subjective Notes: Conditional Voluntary Healthcare Proxy: No Guardianship: No Medical Problems Affecting Mental Status: No Interim History: DC planned for 10/19 to respite and [facility] follow up. Pt wanting DC today, states she can rent an apt. Encouraged pt to continue with plan that her out pt team has arranged and incorporate the opportunity she shares today to obtain the maximum amount of services Medication Compliance: Yes Side effects from medications: No Attending Groups: Intermittent Review of Systems Acute medical concerns: No Medical Review of Systems: unchanged Review of Systems Review of Systems Yes all other systems are reviewed and are negative Mental Status Exam Mental Status Exam Patient Appearance: Fatigued Patient Orientation: Person, Place, Time and Situation Level of Consciousness: Alert Patient Behavior: Talkative and Good Eye Contact Mood Description: Flat Affect Description: Flat Patient Cognition Impaired: No Ability to Follow Directions: Good Speech Pattern: Spontaneous Speech Memory Description: Intact Hallucinations: None Delusions: Not Present Thought Process: Distracted Thought Content: positive for Perseveration Depressive Symptoms: Increased Anxiety Judgement: Fair Diagnostics Vital Signs (24Hr): Vital Signs - 24 hr 10/16/24 12:41 10/16/24 15:55 10/16/24 17:30 Temperature Pulse Rate 72 Respiratory Rate Blood Pressure 95/54 L 111/78 126/73 Pulse Oximetry Oxygen Delivery Method 10/16/24 20:00 10/16/24 21:00 Temperature 97.1 F Pulse Rate 65 Respiratory Rate 16 Blood Pressure 110/57 L 110/57 L Pulse Oximetry 99 Oxygen Delivery Method Room Air BMI result Body Mass Index 25.7 Labs 10/06/24 11:02 10/06/24 11:02 Medications Medications Current Medications Acetaminophen (Acetaminophen 325 Mg Tablet) 650 mg PO Q6H PRN PRN Reason: Headache/Pain Mild Scale (1-3) Last Admin: 10/16/24 22:05 Dose: 650 mg Albuterol Sulfate (Albuterol Sulfate 90 Mcg 8 Gm Inhaler) 2 puff INHALE RQ4H PRN PRN Reason: sob Last Admin: 10/12/24 13:34 Dose: 2 puff Divalproex Sodium (Divalproex Sodium Er 250 Mg Tab.Er.24h) 1,250 mg PO BEDTIME YOSELIN Last Admin: 10/16/24 21:30 Dose: 1,250 mg Famotidine (Famotidine 20 Mg Tablet) 20 mg PO BID PRN PRN Reason: Heartburn Fludrocortisone Acetate (Fludrocortisone Acetate 0.1 Mg Tablet) 0.1 mg PO BID [facility] Last Admin: 10/16/24 21:01 Dose: 0.1 mg Haloperidol (Haloperidol 5 Mg Tablet) 5 mg PO BID [facility] Last Admin: 10/16/24 21:01 Dose: 5 mg Hydrocortisone (Hydrocortisone 10 Mg Tablet) 10 mg PO BIDWM [facility] Last Admin: 10/16/24 17:30 Dose: 10 mg Hydroxyzine HCl (Hydroxyzine Hcl 25 Mg Tablet) 25 mg PO Q6H PRN PRN Reason: Anxiety Last Admin: 10/16/24 21:01 Dose: 25 mg Levothyroxine Sodium (Levothyroxine Sodium 112 Mcg Tablet) 112 mcg PO DAILY@0600 [facility] Last Admin: 10/17/24 07:26 Dose: 112 mcg Magnesium Hydroxide (Milk Of Magnesia 30 Ml Oral.Susp) 30 ml PO DAILY PRN PRN Reason: Constipation Melatonin (Melatonin 3 Mg Tablet) 3 mg PO BEDTIME [facility] Last Admin: 10/16/24 22:10 Dose: 3 mg Midodrine (Midodrine Hcl 5 Mg Tablet) 5 mg PO TIDWM [facility] Last Admin: 10/16/24 17:30 Dose: 5 mg Nicotine Polacrilex (Nicotine Polacrilex 2 Mg Gum) 4 mg BUCCAL Q2H PRN PRN Reason: Nicotine Cravings Last Admin: 10/15/24 18:43 Dose: 4 mg Olanzapine (Olanzapine 5 Mg Tablet) 5 mg PO TID PRN PRN Reason: agitation Last Admin: 10/13/24 16:52 Dose: 5 mg Olanzapine (Olanzapine 10 Mg Tablet) 20 mg PO BEDTIME [facility] Last Admin: 10/16/24 20:59 Dose: 20 mg Prazosin HCl (Prazosin Hcl 1 Mg Capsule) 1 mg PO BEDTIME [facility]; Protocol Last Admin: 10/16/24 21:00 Dose: 1 mg Trazodone HCl (Trazodone Hcl 50 Mg Tablet) 50 mg PO BEDTIME MRX1 PRN PRN Reason: Insomnia Last Admin: 10/16/24 21:00 Dose: 50 mg Allergies Allergies Allergy/AdvReac Type Severity Reaction Status Date / Time risperidone Allergy Unknown Verified 10/06/24 10:29 Assessment & Plan Assessment & Plan (1) Schizoaffective disorder, bipolar type: Status: Acute Code(s): F25.0 - Schizoaffective disorder, bipolar type (2) Cocaine use disorder, moderate, dependence: Status: Acute Code(s): F14.20 - Cocaine dependence, uncomplicated (3) PTSD (post-traumatic stress disorder): Status: Acute Code(s): F43.10 - Post-traumatic stress disorder, unspecified (4) Homeless: Status: Acute Code(s): Z59.00 - Homelessness unspecified Plan HPI: Patient is a 34-year-old female with history of schizoaffective disorder, bipolar type, PTSD: cocaine use disorder, Graves disease (s/p radioactive ablation), hypothyroidism, adrenal insufficiency, GERD, asthma who presents for disorganized behavior, delusions and AH and with comments about SI. Patient reports that she was never actually suicidal but just said she was in order to get admitted. 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 Her goal is to get her GED so she can go to [place] and help stop the pending wars. Otherwise she mostly wants help getting housing. Patient acknowledges that she uses cocaine but vague on amount. Alludes to being off her medications until she arrived to the hospital. She denies any SI or HI; acknowledges AH as mentioned above. Honeycomb Blanket Maker reviewed medications provided by hospital with which patient agrees with continuing. Formulation/clinical reasoning: Patient has history of schizoaffective disorder, exacerbated by cocaine abuse and poor medication adherence. Patient has [facility] services. Currently is with paranoid/grandiose delusionary thinking; She has been off her medications and is somewhat confused and perhaps limited in her ability to manage life tasks. Continuing medications that were just restarted in the ED. Will reach out to [facility] worker for collateral Hospital course: 10/08/24: no changes to current plan. 10/09: no changesas per primary team 10/11: [facility] provided med list. Depakote 1250 mg-increased Haldol Dec 150 mg-hold until we have further info Hydrocortisone-initially ordered, then DC'ed due to conflicts in directions. Levothyroxine 112 mcg daily-increased Melatonin 3 mg hs, added Midodrine-dosage not changed Olanzapine continued Prazosin continued 10/12: Message left with spring to discuss last Haldol injection. Pt reports not on 09/27 as noted. 10/13: Keeping to self. laying in bed. guarded. pt reports feeling fine just tired today; pt reports her plan is to go to respite after discharge. medication compliant. states she is attending some groups. denies SI/HI/VH/AH. discussed with social insurance analyst. 10/14 Patient calm, cooperative and in good behavior and impulse control. Remains with delusional thoughts, saying that she is going to join the [employer] staff as well as some branch of the ; this also includes stopping a war with [employer] and helping his real, as well as getting her GED. Patient said she thinks she will be okay to discharge next week however and go to respite. She says she is without any SI at all and denies any AVH 10/16: no changes. dispo planning focus 10/17: continue current discharge plan of care Plan: CV Q 15 minute checks Home medications: Haldol Decanoate 100 mg RODRIGUEZ Q monthly last received on 09/27/24 Haloperidol 5 mg b.i.d. Olanzapine 20 mg q.h.s. Depakote ER 500 mg q.h.s.? (normally takes 250 mg IR b.i.d.) Prazosin 1 mg q.h.s.; normally takes 2 mg Trazodone 50 mg p.r.n. q.h.s. Levothyroxine 20 mcg daily Famotidine 20 mg b.i.d. p.r.n. Fludrocortisone 0.1 mg b.i.d. Midodrine 5 mg t.i.d. Albuterol ?prn HydroCORTisone 10 mg BID Reason for continued inpatient stay Substantial Risk for: rapid decompensation Time Spent With Patient Time: Total time managing care of this patient today ____ minutes.
--- NOTE | 2024-10-17 11:38 | PC.NURSE ---
pt declined to wake for morning scheduled medication and asked to be awoken a little before lunch
[2024-10-17] MEDS: Midodrine HCl 5 MG TABLET PO ×2 (11:41→18:59)
[2024-10-17] MEDS: Hydrocortisone 10 MG TABLET PO ×2 (11:41→19:00)
[2024-10-17] MEDS: Fludrocortisone Acetate 0.1 MG TABLET PO ×2 (11:41→20:43)
[2024-10-17] MEDS: HaloperidoL 5 MG TABLET PO ×2 (11:41→20:43)
[2024-10-17 12:16] LABS: COVID-19 Test Negative (Negative); IDNOW Serial# 58CA691E
[2024-10-17 18:59] VITALS: BP 107/72
[2024-10-17 20:00] VITALS: BP 102/59; PULSE 71; TEMP 36.7; O2SAT 98
[2024-10-17] MEDS: Melatonin 3 MG TABLET PO (20:42)
[2024-10-17] MEDS: OLANZapine 10 MG TABLET 20 MG PO (20:42)
[2024-10-17] MEDS: Divalproex Sodium ER 250 MG TAB.ER.24H 1250 MG PO (20:43)
[2024-10-17 20:46] VITALS: BP 102/59
[2024-10-17] MEDS: Prazosin HCL 1 MG CAPSULE PO (20:46)
[2024-10-18 08:35] VITALS: BP 113/62; PULSE 51; RESP 16; TEMP 36.6; O2SAT 99
[2024-10-18] MEDS: Fludrocortisone Acetate 0.1 MG TABLET PO ×2 (08:36→20:54)
[2024-10-18] MEDS: Hydrocortisone 10 MG TABLET PO ×2 (08:36→16:49)
[2024-10-18] MEDS: Levothyroxine Sodium 112 MCG TABLET PO (08:36)
[2024-10-18] MEDS: HaloperidoL 5 MG TABLET PO ×2 (08:36→20:54)
--- NOTE | 2024-10-18 10:12 | HO.PSYCHPN ---
Subjective Subjective Date of Service: 10/18/24 Reason For Visit: SI Subjective Notes: Conditional Voluntary Healthcare Proxy: No Guardianship: No Medical Problems Affecting Mental Status: No Interim History: Preparing for discharge to [facility] Discussed writing a letter of support for housing which we will do and to offer assist after discharge. Pt reports feeling improved. Tolerating regime, denies SE Denies SI,HI,AH,VH Medication Compliance: Yes Side effects from medications: No Attending Groups: No Review of Systems Acute medical concerns: No Medical Review of Systems: unchanged Review of Systems Review of Systems Denies Mental Status Exam Mental Status Exam Patient Appearance: Fatigued Patient Orientation: Person, Place, Time and Situation Level of Consciousness: Alert Patient Behavior: Talkative and Good Eye Contact Mood Description: Flat Affect Description: Flat Patient Cognition Impaired: No Ability to Follow Directions: Good Speech Pattern: Spontaneous Speech Memory Description: Intact Hallucinations: None Delusions: Not Present Thought Process: Distracted Thought Content: positive for Perseveration Depressive Symptoms: Increased Anxiety Judgement: Fair Diagnostics Vital Signs (24Hr): Vital Signs - 24 hr 10/17/24 18:59 10/17/24 20:00 10/17/24 20:46 Temperature 98.1 F Pulse Rate 71 Respiratory Rate Blood Pressure 107/72 102/59 L 102/59 L Pulse Oximetry 98 Oxygen Delivery Method Room Air 10/18/24 08:35 Temperature 98 F Pulse Rate 51 Respiratory Rate 16 Blood Pressure 113/62 Pulse Oximetry 99 Oxygen Delivery Method Room Air BMI result Body Mass Index 25.7 Labs 10/06/24 11:02 10/06/24 11:02 Labs: Laboratory Results - last 48 hr 10/14/24 10/17/24 18:56 11:47 Total Bilirubin 0.2 Direct Bilirubin < 0.2 AST 18 ALT 16 Alkaline Phosphatase 49 Ammonia 41 Total Protein 7.3 Albumin 4.0 Valproic Acid 55.9 COVID-19 ([facility]IDA) Negative COVID-19 Clin Com See Note Medications Medications Current Medications Acetaminophen (Acetaminophen 325 Mg Tablet) 650 mg PO Q6H PRN PRN Reason: pain 1-10 Albuterol Sulfate (Albuterol Sulfate 90 Mcg 8 Gm Inhaler) 2 puff INHALE RQ4H PRN PRN Reason: sob Last Admin: 10/12/24 13:34 Dose: 2 puff Divalproex Sodium (Divalproex Sodium Er 250 Mg Tab.Er.24h) 1,250 mg PO BEDTIME [facility] Last Admin: 10/17/24 20:43 Dose: 1,250 mg Famotidine (Famotidine 20 Mg Tablet) 20 mg PO BID PRN PRN Reason: Heartburn Fludrocortisone Acetate (Fludrocortisone Acetate 0.1 Mg Tablet) 0.1 mg PO BID [facility] Last Admin: 10/18/24 08:36 Dose: 0.1 mg Haloperidol (Haloperidol 5 Mg Tablet) 5 mg PO BID [facility] Last Admin: 10/18/24 08:36 Dose: 5 mg Hydrocortisone (Hydrocortisone 10 Mg Tablet) 10 mg PO BIDWM [facility] Last Admin: 10/18/24 08:36 Dose: 10 mg Hydroxyzine HCl (Hydroxyzine Hcl 25 Mg Tablet) 25 mg PO Q6H PRN PRN Reason: Anxiety Last Admin: 10/16/24 21:01 Dose: 25 mg Levothyroxine Sodium (Levothyroxine Sodium 112 Mcg Tablet) 112 mcg PO DAILY@0600 [facility] Last Admin: 10/18/24 08:36 Dose: 112 mcg Magnesium Hydroxide (Milk Of Magnesia 30 Ml Oral.Susp) 30 ml PO DAILY PRN PRN Reason: Constipation Melatonin (Melatonin 3 Mg Tablet) 3 mg PO BEDTIME [facility] Last Admin: 10/17/24 20:42 Dose: 3 mg Midodrine (Midodrine Hcl 5 Mg Tablet) 5 mg PO TIDWM [facility] Last Admin: 10/18/24 08:40 Dose: Not Given Nicotine Polacrilex (Nicotine Polacrilex 2 Mg Gum) 4 mg BUCCAL Q2H PRN PRN Reason: Nicotine Cravings Last Admin: 10/15/24 18:43 Dose: 4 mg Olanzapine (Olanzapine 5 Mg Tablet) 5 mg PO TID PRN PRN Reason: agitation Last Admin: 10/13/24 16:52 Dose: 5 mg Olanzapine (Olanzapine 10 Mg Tablet) 20 mg PO BEDTIME [facility] [place] Last Admin: 10/17/24 20:42 Dose: 20 mg Prazosin HCl (Prazosin Hcl 1 Mg Capsule) 1 mg PO BEDTIME [facility]; Protocol Last Admin: 10/17/24 20:46 Dose: 1 mg Trazodone HCl (Trazodone Hcl 50 Mg Tablet) 50 mg PO BEDTIME MRX1 PRN PRN Reason: Insomnia Last Admin: 10/16/24 21:00 Dose: 50 mg Allergies Allergies Allergy/AdvReac Type Severity Reaction Status Date / Time risperidone Allergy Unknown Verified 10/06/24 10:29 Assessment & Plan Assessment & Plan (1) Schizoaffective disorder, bipolar type: Status: Acute Code(s): F25.0 - Schizoaffective disorder, bipolar type (2) Cocaine use disorder, moderate, dependence: Status: Acute Code(s): F14.20 - Cocaine dependence, uncomplicated (3) PTSD (post-traumatic stress disorder): Status: Acute Code(s): F43.10 - Post-traumatic stress disorder, unspecified (4) Homeless: Status: Acute Code(s): Z59.00 - Homelessness unspecified Plan HPI: Patient is a 34-year-old female with history of schizoaffective disorder, bipolar type, PTSD: cocaine use disorder, Graves disease (s/p radioactive ablation), hypothyroidism, adrenal insufficiency, GERD, asthma who presents for disorganized behavior, delusions and AH and with comments about SI. Patient reports that she was never actually suicidal but just said she was in order to get admitted. 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 Her goal is to get her GED so she can go to [place] and help stop the pending wars. Otherwise she mostly wants help getting housing. Patient acknowledges that she uses cocaine but vague on amount. Alludes to being off her medications until she arrived to the hospital. She denies any SI or HI; acknowledges AH as mentioned above. Mandrel Puller reviewed medications provided by hospital with which patient agrees with continuing. Formulation/clinical reasoning: Patient has history of schizoaffective disorder, exacerbated by cocaine abuse and poor medication adherence. Patient has DM services. Currently is with paranoid/grandiose delusionary thinking; She has been off her medications and is somewhat confused and perhaps limited in her ability to manage life tasks. Continuing medications that were just restarted in the ED. Will reach out to [facility] worker for collateral Hospital course: 10/08/24: no changes to current plan. 10/09: no changesas per primary team 10/11: [facility] provided med list. Depakote 1250 mg-increased Haldol Dec 150 mg-hold until we have further info Hydrocortisone-initially ordered, then DC'ed due to conflicts in directions. Levothyroxine 112 mcg daily-increased Melatonin 3 mg hs, added Midodrine-dosage not changed Olanzapine continued Prazosin continued 10/12: Message left with spring to discuss last Haldol injection. Pt reports not on 09/27 as noted. 10/13: Keeping to self. laying in bed. guarded. pt reports feeling fine just tired today; pt reports her plan is to go to respite after discharge. medication compliant. states she is attending some groups. denies SI/HI/VH/AH. discussed with social media content manager. 10/14 Patient calm, cooperative and in good behavior and impulse control. Remains with delusional thoughts, saying that she is going to join the [employer] staff as well as some branch of the ; this also includes stopping a war with [employer] and helping his real, as well as getting her GED. Patient said she thinks she will be okay to discharge next week however and go to respite. She says she is without any SI at all and denies any AVH 10/16: no changes. dispo planning focus 10/18: DC 10/19 to [facility] Plan: CV Q 15 minute checks Home medications: Haldol Decanoate 100 mg RODRIGUEZ Q monthly last received on 09/27/24 Haloperidol 5 mg b.i.d. Olanzapine 20 mg q.h.s. Depakote ER 500 mg q.h.s.? (normally takes 250 mg IR b.i.d.) Prazosin 1 mg q.h.s.; normally takes 2 mg Trazodone 50 mg p.r.n. q.h.s. Levothyroxine 20 mcg daily Famotidine 20 mg b.i.d. p.r.n. Fludrocortisone 0.1 mg b.i.d. Midodrine 5 mg t.i.d. Albuterol ?prn HydroCORTisone 10 mg BID Reason for continued inpatient stay Substantial Risk for: rapid decompensation Time Spent With Patient Time: Total time managing care of this patient today ____ minutes.
[2024-10-18 13:22] VITALS: BP 109/66
[2024-10-18] MEDS: Midodrine HCl 5 MG TABLET PO ×2 (13:22→16:49)
[2024-10-18 16:49] VITALS: BP 113/54
[2024-10-18] MEDS: Acetaminophen 325 MG TABLET 650 MG PO (19:06)
[2024-10-18] MEDS: Nicotine Polacrilex 2 MG GUM 4 MG BUCCAL (19:34)
[2024-10-18 20:00] VITALS: BP 117/51; PULSE 65; TEMP 36.9; O2SAT 99
[2024-10-18 20:54] VITALS: BP 117/51
[2024-10-18] MEDS: Prazosin HCL 1 MG CAPSULE PO (20:54)
[2024-10-18] MEDS: Divalproex Sodium ER 250 MG TAB.ER.24H 1250 MG PO (20:54)
[2024-10-18] MEDS: Melatonin 3 MG TABLET PO (20:54)
[2024-10-18] MEDS: OLANZapine 10 MG TABLET 20 MG PO (20:54)
[2024-10-19 09:01] VITALS: BP 109/69
[2024-10-19] MEDS: HaloperidoL 5 MG TABLET PO (09:01)
[2024-10-19] MEDS: Midodrine HCl 5 MG TABLET PO (09:01)
[2024-10-19] MEDS: Levothyroxine Sodium 112 MCG TABLET PO (09:02)
[2024-10-19] MEDS: Fludrocortisone Acetate 0.1 MG TABLET PO (09:02)
[2024-10-19] MEDS: Hydrocortisone 10 MG TABLET PO (09:02)
[2024-10-19 09:38] VITALS: BP 109/69; PULSE 51; TEMP 36.4; O2SAT 97
--- NOTE | 2024-10-19 20:52 | P.DS_ITS ---
DS: Providers Provider Date of admission: 10/06/24 20:41 Primary care physician: Unknown Physician DS: Diagnosis Discharge Diagnosis (1) Schizoaffective disorder, bipolar type: Status: Acute (2) Cocaine use disorder, moderate, dependence: Status: Acute (3) PTSD (post-traumatic stress disorder): Status: Acute (4) Homeless: Status: Acute DS: Medications Discharge Medications Home Medications: Previous Rx's ?Medication ?Instructions ?Recorded albuterol sulfate 90 mcg/actuation 2 puff inhalation RQ4H PRN sob #1 10/19/24 aerosol inhaler (Ventolin HFA) inhaler divalproex 250 mg tablet,extended 1,250 mg (5 x 250 mg) PO BEDTIME 10/19/24 release 24 hr #150 tabs fludrocortisone 0.1 mg tablet 0.1 mg PO BID #60 tabs 10/19/24 haloperidol 5 mg tablet 5 mg PO BID #60 tabs 10/19/24 haloperidol decanoate 100 mg/mL 100 mg IM Q4W #1 mL 10/19/24 intramuscular solution (Haldol Decanoate) hydrocortisone 10 mg tablet 10 mg PO BIDWM #60 tabs 10/19/24 (Cortef) hydroxyzine HCl 25 mg tablet 25 mg PO Q6H PRN Anxiety #30 tabs 10/19/24 levothyroxine 112 mcg tablet 112 mcg PO DAILY@0600 #30 tabs 10/19/24 melatonin 3 mg tablet 3 mg PO BEDTIME #30 tabs 10/19/24 midodrine 5 mg tablet 5 mg PO TIDWM #90 tabs 10/19/24 nicotine (polacrilex) 2 mg gum 4 mg buccal Q2H PRN Nicotine 10/19/24 Cravings #110 ea olanzapine 10 mg tablet 20 mg (2 x 10 mg) PO BEDTIME #30 10/19/24 tabs olanzapine 5 mg tablet 5 mg PO TID PRN agitation #90 tabs 10/19/24 prazosin 1 mg capsule 1 mg PO BEDTIME #30 caps 10/19/24 trazodone 50 mg tablet 50 mg PO BEDTIME MRX1 PRN Insomnia 10/19/24 #60 tabs Data Data Completed and Pending Completed studies during hospitalization [Text1]: 10/14/24 10/17/24 18:56 11:47 Total Bilirubin 0.2 Direct Bilirubin < 0.2 AST 18 ALT 16 Alkaline Phosphatase 49 Ammonia 41 Total Protein 7.3 Albumin 4.0 Valproic Acid 55.9 COVID-19 ([facility]) Negative COVID-19 Clin Com See Note DS: Summary Time Spent with Patient Time attestation: Total time managing care of this patient today ____ minutes. Discharge Plan Discharge Anticipated Discharge Date/Time: 10/19/24 12:00 Patient Disposition: Xfer Other Discharge Diagnosis: PTSD Schizoaffective Disorder, Bipolar Type Cocaine Use Disorder Homelessness Referrals: [facility] Human Development Psychiatry with Ravi Askew [Other] - 11/24/24 9:00 am () [facility] Assessment w Viki Luu [Other] - 10/25/24 11:00 am [facility] Barrel Assembly Inspector Isabel Guadalupe [Other] - 3-5 Days (Isabel will follow up with you in the community. Sw is recommending continued education regarding [facility] ACCS support and [facility] Rep-Payee Support. Pt would benefit with engaging with ACCS team support to help pursue her goals and sustain community stability. ) Physician,Unknown J [Primary Care Provider] - 1 Week Discharge Medications: New haloperidol 5 mg Tablet 5 mg PO BID Qty: 60 0RF trazodone 50 mg Tablet 50 mg PO BEDTIME MRX1 PRN (Reason: Insomnia) Qty: 60 0RF nicotine (polacrilex) 2 mg Gum 4 mg buccal Q2H PRN (Reason: Nicotine Cravings) Qty: 110 0RF prazosin 1 mg Capsule 1 mg PO BEDTIME Qty: 30 0RF Protocol: Hold for SBP< HOLD for SBP < : 90 olanzapine 5 mg Tablet 5 mg PO TID PRN (Reason: agitation) Qty: 90 0RF midodrine 5 mg Tablet 5 mg PO TIDWM Qty: 90 0RF olanzapine 10 mg Tablet 20 mg PO BEDTIME Qty: 30 0RF hydroxyzine HCl 25 mg Tablet 25 mg PO Q6H PRN (Reason: Anxiety) Qty: 30 0RF albuterol sulfate [Ventolin HFA] 90 mcg/actuation Hfa Aerosol Inhaler 2 puff inhalation RQ4H PRN (Reason: sob) Qty: 1 0RF divalproex 250 mg Tablet Extended Release 24 Hr 1,250 mg PO BEDTIME Qty: 150 0RF melatonin 3 mg Tablet 3 mg PO BEDTIME Qty: 30 0RF hydrocortisone [Cortef] 10 mg Tablet 10 mg PO BIDWM Qty: 60 0RF fludrocortisone 0.1 mg Tablet 0.1 mg PO BID Qty: 60 0RF levothyroxine 112 mcg Tablet 112 mcg PO DAILY@0600 Qty: 30 0RF haloperidol decanoate [Haldol Decanoate] 100 mg/mL solution 100 mg IM Q4W Qty: 1 0RF Rx Instructions: Due 10/28/24 Discontinued divalproex 250 mg Tablet,Delayed Release (Dr/Ec) 250 mg PO BID Qty: 28 0RF nicotine (polacrilex) 2 mg Gum 4 mg buccal Q2H PRN (Reason: Nicotine Cravings) Qty: 60 0RF prazosin 1 mg Capsule 1 mg PO BEDTIME Qty: 7 0RF Protocol: Hold for SBP< HOLD for SBP < : 90 midodrine 10 mg Tablet 10 mg PO TID Qty: 14 0RF olanzapine 20 mg tablet 20 mg PO BEDTIME Qty: 7 0RF melatonin 3 mg Tablet 3 mg PO BEDTIME PRN (Reason: Insomnia) Qty: 14 0RF hydrocortisone [Cortef] 10 mg Tablet 10 mg PO BIDWM Qty: 28 0RF levothyroxine 112 mcg Tablet 112 mcg PO DAILY@0600 Qty: 7 0RF Discharge Orders: Discharge Order (Routine); Ordered 10/19/24 Ordered By: Debra Baptiste Diet: Advance to usual diet Activity on Discharge: As tolerated Stand Alone Forms: Patient Portal Discharge page, Community Support Print Language: Yi Care Plan Goals: Mood and Behavioral Stabilization Abstinence from Substances Health Concerns: Mood and Behavioral Stabilization Abstinence from Substances Plan of Treatment: Take medications as directed Attend scheduled appointments Assessment: No SI,HI,AH,VH No sx of acute mabel or psychosis Discharge Date/Time: 10/19/24 11:55
== END 2024-10-19 11:55 | disposition other institution (70) | DRG 750 ==
LOC: HO.ED 15:10 → HO.PM5 21:01
PROVIDERS: Physician Assistant Medical; Admitting Provider Psychiatry & Neurology Psychiatry; Emergency Provider Emergency Medicine; Visit Provider Clinical Nurse Specialist Psychiatric/Mental Health, Adult
DX: F25.0 Schizoaffective disorder, bipolar type (principal); R45.851 Suicidal ideations; E03.9 Hypothyroidism, unspecified; F17.210 Nicotine dependence, cigarettes, uncomplicated; K21.9 Gastro-esophageal reflux disease without esophagitis; J45.909 Unspecified asthma, uncomplicated; Z71.6 Tobacco abuse counseling; F14.20 Cocaine dependence, uncomplicated; F43.10 Post-traumatic stress disorder, unspecified; Z59.02 Unsheltered homelessness; Z20.822 Contact with and (suspected) exposure to COVID-19; Z79.890 Hormone replacement therapy; Z79.899 Other long term (current) drug therapy
CPT/HCPCS: 0241U; 36415; 71250; 80053; 80061; 80076; 80143; 80164; 80179; 80307; 81001; 81025; 82140; 83036; 84439; 84443; 85025; 87635; 93005; 99285; S9485

== ENCOUNTER → 2024-10-06 10:30 | Outpatient (BNV) | payer MEDICAID, SELFPAY | PROVIDERS: Emergency Provider Emergency Medicine; Visit Provider Internal Medicine | DX: Z13.6 Encounter for screening for cardiovascular disorders (principal) | CPT/HCPCS: 93010 ==

== ENCOUNTER → 2024-10-06 16:14 | Outpatient (BNV) | payer MEDICAID, SELFPAY | PROVIDERS: Emergency Provider Emergency Medicine; Visit Provider Radiology Diagnostic Radiology | DX: R91.8 Other nonspecific abnormal finding of lung field (principal) | CPT/HCPCS: 71250 ==

== ENCOUNTER → 2024-10-06 20:41 | Outpatient (BNV) | payer OTHER, SELFPAY | PROVIDERS: Admitting Provider Psychiatry & Neurology Psychiatry; Emergency Provider Emergency Medicine; Visit Provider Psychiatry & Neurology Psychiatry | DX: F25.0 Schizoaffective disorder, bipolar type (principal); F14.20 Cocaine dependence, uncomplicated; F43.11 Post-traumatic stress disorder, acute; Z59.00 Homelessness unspecified | CPT/HCPCS: 99231; 99232; 99499 ==